=== PATIENT | male | born 1940 | race Caucasian/White ===

== ENCOUNTER 2017-01-01 06:15 | Observation (INO) | payer BC ==
--- NOTE | 2016-12-20 10:26 | PAT Medication Instructions ---
Service Date Dec 20, 2016. Current Home Medication List Aspirin (Aspirin Chewable), 81 MG PO QAM Carvedilol (Coreg *), 25 MG PO BID Finasteride (Proscar), 5 MG PO QPM Fish Oil ([place]-3), 1,000 MG PO QAM Furosemide (Lasix), 60 MG PO QAM Hydralazine HCl (Hydralazine HCl), 25 MG PO TID Isosorbide Mononitrate Ext Rel (Imdur Ext Rel), 1 TAB PO QAM Levothyroxine Sodium (Levothyroxine Sodium), 1 TAB PO QAM Nitroglycerin (Nitrostat), 1 TAB SL UD Potassium Chloride Microencaps (Potassium Chloride Er), 1 TAB PO DAILY Simvastatin (Zocor), 10 MG PO QPM Terazosin (Hytrin), 10 MG PO QPM Warfarin Sodium (Coumadin), 5 MG PO UD Medication Instructions For Your Scheduled Surgery - Use as directed: Nitroglycerin (Nitrostat), 1 TAB SL UD - Hold the following medications as of 12/21/16: Fish Oil ([place]-3), 1,000 MG PO QAM - Hold the following medications 2 days prior to surgery per surgeon's instructions: Warfarin Sodium (Coumadin), 5 MG PO UD - Hold the following medications the morning of surgery: Aspirin (Aspirin Chewable), 81 MG PO QAM (per surgeon's instructions) Carvedilol (Coreg *), 25 MG PO BID (per surgeon's instructions) Furosemide (Lasix), 60 MG PO QAM Hydralazine HCl (Hydralazine HCl), 25 MG PO TID (per surgeon's instructions) Isosorbide Mononitrate Ext Rel (Imdur Ext Rel), 1 TAB PO QAM (per surgeon's instructions) Potassium Chloride Microencaps (Potassium Chloride Er), 1 TAB PO DAILY - Take the following medications the morning of surgery with a sip of water: Levothyroxine Sodium (Levothyroxine Sodium), 1 TAB PO QAM - Take the following medications as scheduled the night before surgery: Carvedilol (Coreg *), 25 MG PO BID Hydralazine HCl (Hydralazine HCl), 25 MG PO TID Finasteride (Proscar), 5 MG PO QPM Simvastatin (Zocor), 10 MG PO QPM Terazosin (Hytrin), 10 MG PO QPM PER , NOTHING TO EAT OR DRINK AFTER 7PM THE EVENING PRIOR TO SURGERY )) If you have any questions please call us at [phone] or [phone] or [phone]
[~2017-01-01] VITALS: Ht 177.8 cm; Wt 94.3 kg
[2017-01-01] VITALS (9 sets, daily range): BP systolic 105–129; BP diastolic 68–86; PULSE 61–68; TEMP 36.3–36.8; O2SAT 84–96; Ht 177.8 cm; Wt 94.3 kg
[~2017-01-01 06:15] MED LIST: APR/25 PO; ASPCH81X PO; CEFAZOLIN 2000 MG/60 ML D5W IV SCH; CRG25 PO; FINA5TAB PO; FURO40TA3 PO; ISOS30TA3 PO; LACTATED RINGER'S 1000ML 1,000 ML IV SCH; LEVO50TA6 PO; NTRGSL/4 SL; OMEG10007 PO; POTA10TA32 PO; SIMV10TA2 PO; TERA5CAP PO; WARF5TAB90 PO
[2017-01-01 07:00] LABS: INR 1.4 (0.9-1.1); PARTIAL THROMBOPLASTIN RATIO 1.1
[2017-01-01] MEDS ORDERED: FRS/40 PO (07:07)
[2017-01-01] MEDS ORDERED: LIDOCAINE HCL 1% 20 ML VIAL ONE (07:25)
[2017-01-01] MEDS ORDERED: BUPIVACAINE 0.5 % 5 MG/1 ML MPF 30ML VIAL ONE (07:25)
[2017-01-01] MEDS ORDERED: BACITRACIN 50000 UNIT VIAL ONE ×2 (07:26→12:01)
[2017-01-01] MEDS ORDERED: FENTANYL CITRATE INJ 50 MCG/1 ML 2 ML VIAL IV PRN (07:30)
[2017-01-01] MEDS ORDERED: ONDANSETRON INJ 2 MG/ML 2 ML VIAL IV PRN (07:30)
[2017-01-01] MEDS ORDERED: PROPOFOL IV EMULSION 10 MG/ML 100 ML VIAL IV ONE (07:49)
[2017-01-01] MEDS ORDERED: MIDAZOLAM HCL 1 MG/ML 2ML VIAL ONE (07:52)
[2017-01-01] MEDS ORDERED: FENTANYL CITRATE INJ 50 MCG/1 ML 2 ML VIAL ONE (07:52)
--- NOTE | 2017-01-01 08:09 | History & Physical Bridge Note ---
H&P Re-Evaluation Bridge Note: I have examined the patient, reviewed the History & Physical and in the interval since the performance of the History & Physical I have noted the following changes of clinical significance: No changes noted
[2017-01-01] MEDS ORDERED: LIDOCAINE HCL 2% 2 ML VIAL (20MG/ML) ONE (08:36)
[2017-01-01] MEDS ORDERED: PROPOFOL IV EMULSION 10 MG/ML 20 ML VIAL IV ONE (08:36)
[2017-01-01] MEDS ORDERED: EpHEDrine SULFATE 50MG/5ML SYR ONE (09:01)
[2017-01-01] MEDS ORDERED: PHENYLEPHRINE 100MCG/ML 5ML SYR ONE (09:13)
[2017-01-01] MEDS ORDERED: EpHEDrine SULFATE INJ 50 MG/ML AMP ONE (10:00)
--- NOTE | 2017-01-01 12:43 | [facility] Post Operative Brief Note ---
Immediate Operative Summary Operative Date Jan 01, 2017. Pre-Operative Diagnosis ICM, CHB Post-Operative Diagnosis SAME Procedure(s) Performed UNSUCESSFUL UPGRADE TO BIV ICD Surgeon ANALISA ROBERTSON Chip Mixer Surgeon(s) USHA VICENTE Estimated Blood Loss 50CC Findings NONE Fluids (cc crystalloids) 450CC Specimens NONE Drains NONE Anesthesia 2MG VERSED, 100MCG FENTANYL, 470MG PROPOFOL Complication(s) None Disposition PCU
[2017-01-01] MEDS ORDERED: ACETAMINOPHEN/CODEINE 300/30MG TAB PO PRN (12:45)
[2017-01-01] MEDS ORDERED: NITROGLYCERIN 0.4 MG SL PER TAB CHARGE SL PRN (12:45)
[2017-01-01] MEDS ORDERED: ACETAMINOPHEN 325 MG TAB PO PRN (12:45)
--- NOTE | 2017-01-01 12:45 | Discharge Instructions ---
Discharge Instructions Date of Service Jan 01, 2017. Admission Reason for Admission: Ischemic Cardiomyopathy, Add Lead W/Anesthesia Discharge Discharge Diagnosis / Problem: ICM Discharge Goals Goal(s): Improve function Activity Recommendations Activity Limitations: as noted below Lifting Limitations: no more than 10 pounds May Resume Sexual Activity: after one week Shower/Bathe: tomorrow Driving or Machine Use: resume 1 day after discharge . Instructions / Follow-Up Instructions / Follow-Up ACTIVITY RECOMMENDATIONS: * Do not raise affected arm over head for 2 weeks. SPECIAL CARE INSTRUCTIONS: * If bleeding occurs, apply direct pressure to area for 5 minutes. * Call your doctor if you have severe pain, fever, drainage or bleeding at site. * Keep dressing on and dry for 48 hours then remove. * Keep any scheduled doctor's appointment. * Implant Card - hand held device with website information given. SKIN IRRITATION: * You may experience some redness and/or swelling in the area where radiation was administered. If any skin irritation occurs, please contact your family physician. FOLLOW UP VISIT: Keep any scheduled doctor appointments. Current Hospital Diet Patient's current hospital diet: AHA Diet (Heart Healthy), Low Sodium Diet (2gm Na) Discharge Diet Recommended Diet: AHA Diet (Heart Healthy), Low Sodium Diet (2gm Na) Procedures Procedures Performed: UNSUCESSFUL UPGRADE TO BIV ICD Pending Studies Studies pending at discharge: no Medical Emergencies . Who to Call and When: Medical Emergencies: If at any time you feel your situation is an emergency, please call 911 immediately. . Non-Emergent Contact Non-Emergency issues call your: Wan Support Specialist . . "Provider Documentation" section prepared by Loyda Haddad. . VTE Core Measure Inpt VTE Proph given/why not?: Warfarin (Coumadin)
--- NOTE | 2017-01-01 12:50 | Discharge Summary ---
Discharge Summary Date of Service Jan 01, 2017. Discharge Summary Admission Date: Discharge Date: Jan 02, 2017 Discharge Disposition: Home Principal Diagnosis: ICM Secondary Diagnoses/Problems: CHB S/P PPM 2004 WITH UPGRADE TO ICD IN 2009; RECENT GENT CHANGE IN [place] 2015 PAF S/P DCCV 05/2016 AMIODARONE STOPPED DUE TO CONCERN FOR PULMONARY TOXICITY; REMAINS ON COUMADIN CAD S/P PCI TO LAD CHRONIC SYSTOLIC HF, NYHA CLASS III HYPOTENSION HLD AAA 3.8CM IN 2010 H/O TIA BPH Procedures: UNSUCCESSFUL UPGRADE TO BIV ICD Medication Reconciliation Continued Medications: Aspirin (Aspirin Chewable) 81 Mg Chew 81 MG PO QAM Carvedilol (Coreg *) 25 Mg Tab 25 MG PO BID, 0 Refills Finasteride (Proscar) 5 Mg Tab 5 MG PO QPM, 0 Refills Fish Oil ([place]-3) 1 Ea Cap 1000 MG PO QAM, 0 Refills Furosemide (Lasix) 40 Mg Tab 40 MG PO DAILY, TAB Hydralazine HCl (Hydralazine HCl) 25 Mg Tab 25 MG PO TID Isosorbide Mononitrate Ext Rel (Imdur Ext Rel) 30 Mg Ertab 1 TAB PO QAM for 30 Days, #30 TAB 5 Refills Levothyroxine Sodium (Levothyroxine Sodium) 50 Mcg Tab 1 TAB PO QAM for 30 Days, #30 TAB 5 Refills Nitroglycerin (Nitrostat) 0.4 Mg Tab 1 TAB SL UD, #100 TAB 3 Refills Potassium Chloride Microencaps (Potassium Chloride Er) 10 Meq Tab 1 TAB PO DAILY for 30 Days, #30 TAB 5 Refills TAKES DIFFERENT TIMES Simvastatin (Zocor) 10 Mg Tab 10 MG PO QPM, 0 Refills Terazosin (Hytrin) 5 Mg Cap 10 MG PO QPM, 0 Refills Warfarin Sodium (Coumadin) 5 Mg Tab 5 MG PO UD, TAB Take 5mg PO twice weekly on Friday and Friday; all other days take 7.5 mg Admission Information Physical Exam (per Admitting): AAOX3, NAD NC/AT, EOMI SUPPLE, NO JVD NRL S1/S2, NO MURMUR CTA B/L NO W/R/R SOFT NT/ND NO EDEMA B/L NO FOCAL DEFICITS SKIN INTACT Hospital Course Pt admitted for elective upgrade to BiV ICD due to ICM, Chronic systolic HF- NYHA Class III, CHB. Unfortunately procedure was unsuccessful due to not being able to cannulate the c/s os. Pt was monitored overnight given the extent of the procedure, amount of sedation. He was discharged home following day in stable condition Total time spent on discharge = This includes examination of the patient, discharge planning, medication reconciliation, and communication with other providers. Discharge Instructions ACTIVITY RECOMMENDATIONS: * Do not raise affected arm over head for 2 weeks. SPECIAL CARE INSTRUCTIONS: * If bleeding occurs, apply direct pressure to area for 5 minutes. * Call your doctor if you have severe pain, fever, drainage or bleeding at site. * Keep dressing on and dry for 48 hours then remove. * Keep any scheduled doctor's appointment. * Implant Card - hand held device with website information given. SKIN IRRITATION: * You may experience some redness and/or swelling in the area where radiation was administered. If any skin irritation occurs, please contact your family physician. FOLLOW UP VISIT: Keep any scheduled doctor appointments.
--- NOTE | 2017-01-01 13:43 | Anesthesiology Progress Note ---
Anesthesia Post Op Note Date & Time Jan 01, 2017 at 13:43 Vital Signs Pain Intensity: 0 Vital Signs Past 12 Hours Date Time Temp Pulse Resp B/P (MAP) Pulse Ox O2 Delivery O2 Flow Rate FiO2 01/01/17 13:10 75 16 115/72 (86) 96 Nasal Cannula 4 01/01/17 13:00 75 16 117/79 (92) 96 Nasal Cannula 4 01/01/17 12:50 75 16 101/62 (75) 96 Nasal Cannula 4 01/01/17 07:13 36.6 64 20 119/74 (89) 84 Nasal Cannula 2 Notes Mental Status: alert / awake / arousable, participated in evaluation Pt Amnestic to Procedure: Yes Nausea / Vomiting: adequately controlled Pain: adequately controlled Airway Patency, RR, SpO2: stable & adequate BP & HR: stable & adequate Hydration State: stable & adequate Anesthetic Complications: no major complications apparent
[2017-01-01] MEDS ORDERED: IV FLUIDS COMPLETED PRN (13:45)
[2017-01-01] MEDS ORDERED: WARFARIN SOD 7.5 MG TAB PO SCH (16:00)
[2017-01-01] MEDS: CARVEDILOL 25 MG TAB PO SCH (20:41)
[2017-01-01] MEDS ORDERED: FINASTERIDE 5 MG TAB PO SCH (21:00)
[2017-01-01] MEDS ORDERED: SIMVASTATIN 10 MG TAB PO SCH (21:00)
[2017-01-02 00:04] VITALS: BP 122/73; PULSE 67; TEMP 36.9; O2SAT 95
[2017-01-02 03:45] VITALS: BP 104/65; PULSE 65; TEMP 36.1; O2SAT 96
[2017-01-02] MEDS ORDERED: LEVOTHYROXINE 50 MCG TAB PO SCH (06:00)
--- NOTE | 2017-01-02 06:51 | DIAGNOSTIC IMAGING REPORT ---
CHEST 2 VIEWS ROUTINE CLINICAL HISTORY: EXACT TIME ORDERED Evaluate for pneumothorax and lead placement COMPARISON STUDY: 07/15/2015 FINDINGS: Cardiac pacemaker in good position. No evidence pneumothorax. Potential developing infiltrative process left base. Persistent prominence of pulmonary vascular tear. IMPRESSION: Cardiac pacemaker leads in good position. No evidence of pneumothorax. Developing infiltrate left base. Electronically signed by: Kamari Tong M.D. 01/02/2017 6:50 AM Dictated Date/Time: 01/02/2017 6:49 AM
[2017-01-02 07:21] VITALS: BP 122/71; PULSE 65; TEMP 36.8; O2SAT 94
[2017-01-02 07:38] LABS: INR 1.3 (0.9-1.1); PROTHROMBIN TIME (PATIENT) 14.1 SECONDS (9.0-12.0)
[2017-01-02] MEDS: CARVEDILOL 25 MG TAB PO SCH (08:11)
--- NOTE | 2017-01-02 08:11 | Anesthesiology Progress Note ---
Anesthesia Post Op Note Date & Time Jan 02, 2017 at 08:09 Vital Signs Pain Intensity: 0 Vital Signs Past 12 Hours Date Time Temp Pulse Resp B/P (MAP) Pulse Ox O2 Delivery O2 Flow Rate FiO2 01/02/17 07:21 36.8 65 20 122/71 (88) 94 Nasal Cannula 2.0 01/02/17 04:00 Nasal Cannula 2.0 01/02/17 03:45 36.1 65 18 104/65 (78) 96 01/02/17 00:04 36.9 67 18 122/73 (89) 95 3.0 01/02/17 00:01 Nasal Cannula 2.0 Notes Mental Status: alert / awake / arousable, participated in evaluation Pt Amnestic to Procedure: Yes Nausea / Vomiting: adequately controlled Pain: adequately controlled Airway Patency, RR, SpO2: stable & adequate BP & HR: stable & adequate Hydration State: stable & adequate Anesthetic Complications: no major complications apparent
[2017-01-02] MEDS ORDERED: FUROSEMIDE 40 MG TAB PO SCH (09:00)
[2017-01-02] MEDS ORDERED: OMEGA-3 (PURIFIED FISH OIL) 1 GM CAP PO SCH (09:00)
[2017-01-02] MEDS ORDERED: ISOSORBIDE MONONITRATE 30 MG TABCR PO SCH (09:00)
[2017-01-02] MEDS ORDERED: ASPIRIN 81 MG CHEW PO SCH (09:00)
[2017-01-02] MEDS ORDERED: POTASSIUM CHLORIDE 10 MEQ TABCR PO SCH (09:00)
[2017-01-02 11:18] VITALS: BP 100/60; PULSE 65; TEMP 36.6; O2SAT 92
[2017-01-03] MEDS ORDERED: WARFARIN SOD 5 MG TAB PO SCH (16:00)
--- NOTE | 2017-01-15 12:48 | [facility] Operative Report ---
Operative Report Operative Date Jan 15, 2017. 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 POSTOPERATIVE DIAGNOSIS: Same, occluded left subclavian vein PROCEDURE: unsuccessful Upgrade to a biventricular rate ICD under fluoroscopic guidance along with peripheral venogram. SURGEON: Dr. Loyda Robertson. ASSISTANTS: Dr. Usha Friend ANESTHESIA: Monitored anesthetic care was given via anesthesiology. A total of 2 mg of Versed, 100 mcg of fentanyl, and 470 mg of propofol. START TIME: 8:15. END TIME: 12:50. COMPLICATIONS: None. CONDITION: Stable. BLOOD LOSS: 50 mL. ANTIBIOTICS: Two grams of Ancef. IV FLUIDS: 450 mL. CONTRAST: 35 mL. URINE OUTPUT: Not applicable. SPECIMENS: None. FINDINGS: None. DRAINS: None. INDICATIONS: This is an 76-year-old gentleman who has a past medical history for complete heart block for which he underwent a permanent pacemaker dual chamber in 2004. He is now a 100% RV paced and his ejection fraction has been slowly decreasing. He now has an ejection fraction of 15%, with a ischemic cardiomyopathy, he was upgraded to dual chamber ICD with capping of the RV paced sense lead back in 2009 and had a recent ICD generator change out in [facility] in 10/2015. 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 Due to his complete heart block with a 100% RV pacing and worsening cardiomyopathy, it was recommended consideration for an upgrade to a biventricular device. CONSENT: Consent was obtained prior to the patient going into the electrophysiology lab. The patient was informed of risks, benefits, and alternatives to the procedure. Risks include but not limited to sudden cardiac arrhythmias, cerebrovascular accident, myocardial infarction, injury to the blood vessels, chamber of the heart, lungs, bleeding and infection. The patient understood these risks and agreed to the procedure as planned. Informed consent was obtained. DESCRIPTION OF THE PROCEDURE: The patient was brought in to the electrophysiology lab in a fasting state. He was connected to continuous strategic marketing specialist. A timeout was performed to ensure patient's identity and procedure correctly. Before draping, we did a peripheral venogram with 10 mL of IV contrast diluted in 10 mL of saline followed by a 20 mL flush in the left peripheral vein to ensure that it was not occluded. It did not appear occluded but we did prepped and draped both the right and left infraclavicular space in normal surgical standard fashion. Monitored anesthetic care was given throughout the procedure for patient's comfort level via anesthesiology support. [place] precautions were maintained throughout the procedure. The patient did receive 2 grams of IV Ancef prior to incision. A 10 mL of 1% lidocaine were given over the prior surgical incision. Incision was made over the prior surgical incision. Then venous access was obtained with an axillary stick; however I was not able to pass the guide wire much beyond the mid subclavian vein. I put a 5 german sheath over the glide wire and removed the glidewire and dilator. 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 I then went to the right side; gave 10cc of 1% lidocaine in the right deltopectoral groove. Did blunt dissection down to the cephalic vein. The vein was isolated using 0-silk ties and nicked with an 11 blade. A glide wire was inserted without any resistance. A 9.5-American sheath was inserted over the glide wire without any resistance. Then the dilator was removed, then an MPX outer sheath right-sided from [employer] was used and advanced to the right atrium. The dilator and Glidewire removed. A CS diagnostic Decapolar catheter was then used to cannulate the coronary sinus. We had difficulty getting into the C/S Os; I had swapped out the MPX right sided outer sheath for an extended hook medtronic outer sheath however since it is curved more for left sided I still had difficulty. However there was about 2 times where I got in but then was not able to advance the extended hook outer sheath over the CS diagnostic catheter without everything pulling back out of the coronary sinus. I also tried with a right sided [place] CS catheter sheath without any success. Then Dr. Hobbs scrubed in to try and assist me further and try but he was also unsuccessful. After about 3 hours of trying; we stopped. The right side was flushed with copious amounts of bacitracin saline wash and inspected for hemostasis. The incision was then closed in a 3-layer fashion, 2-0 Vicryl suture followed by 3-0 Vicryl interrupted suture followed by a 4-0 Monocryl running stitch. Then I went back to the left side; the 5 American sheath was removed and manual compression was held to achieve hemostasis. Then the left side was flushed with copious amounts of bacitracin saline wash and inspected for hemostasis. The incision was then closed in a 3-layer fashion, 2-0 Vicryl suture followed by 3-0 Vicryl interrupted suture followed by a 4-0 Monocryl running stitch. EQUIPMENT: 1. ICD remains INCEPTA [employer] E163; Serial # [id number] 2. Right atrial lead 5076-45, serial #[id number], implant date 04/19/2005. 4. Right ventricular lead 6935-65 cm, serial #[id number], implant date 12/18/2009. IMPRESSION: unsuccessful upgrade to a biventricular ICD under fluoroscopic guidance along with peripheral venogram due to complete heart block with 100% RV pacing and worsening cardiomyopathy. PLAN: Monitor patient overnight, chest x-ray. He can continue his home medications. I will see the patient in the office in follow up to further discuss about possible options for upgrade to FERMENTER device. Fluids 450CC Specimens NONE Drains NONE Anesthesia 2MG VERSED, 100MCG FENTANYL, 470MG PROPOFOL Disposition PCU I attest to the content of the Intraoperative Record and any orders documented therein. Any exceptions are noted below.
== END 2017-01-02 12:45 | disposition home or self-care (01) ==
LOC: C.ACU 06:15 → ENRESERV 11:58 → C.2T 12:39
PROVIDERS: ADMIT Internal Medicine; ATTEND Internal Medicine
DX: Z53.8 Procedure and treatment not carried out for other reasons (principal); I25.5 Ischemic cardiomyopathy; I25.10 Atherosclerotic heart disease of native coronary artery without angina pectoris; I50.42 Chronic combined systolic (congestive) and diastolic (congestive) heart failure; I10 Essential (primary) hypertension; E78.5 Hyperlipidemia, unspecified; I71.4 Abdominal aortic aneurysm, without rupture; I49.9 Cardiac arrhythmia, unspecified; N40.1 Benign prostatic hyperplasia with lower urinary tract symptoms; N13.8 Other obstructive and reflux uropathy; N52.9 Male erectile dysfunction, unspecified; E66.3 Overweight; E03.9 Hypothyroidism, unspecified; Z95.9 Presence of cardiac and vascular implant and graft, unspecified; Z79.01 Long term (current) use of anticoagulants; Z95.810 Presence of automatic (implantable) cardiac defibrillator; Z79.899 Other long term (current) drug therapy

== ENCOUNTER 2017-01-29 10:24 | Observation (INO) | payer BC, OTHER ==
[~2017-01-29] VITALS: Ht 177.8 cm; Wt 92.5 kg
[~2017-01-29 10:24] MED LIST changes: +FRS/40 PO; -FURO40TA3 PO
[2017-01-29] MEDS ORDERED: PROPOFOL IV EMULSION 10 MG/ML 100 ML VIAL IV ONE (10:43)
[2017-01-29] MEDS ORDERED: FENTANYL CITRATE INJ 50 MCG/1 ML 2 ML VIAL IV PRN (11:00)
[2017-01-29] MEDS ORDERED: ATROPINE SULFATE 0.1 MG/ML 5ML SYR IV PRN (11:00)
[2017-01-29] MEDS ORDERED: ONDANSETRON INJ 2 MG/ML 2 ML VIAL IV PRN (11:00)
[2017-01-29] MEDS ORDERED: EpHEDrine SULFATE INJ 50 MG/ML AMP IV PRN (11:00)
--- NOTE | 2017-01-29 11:18 | DIAGNOSTIC IMAGING REPORT ---
CHEST 2 VIEWS ROUTINE HISTORY: PREOP TESTING IN SDS COMPARISON: Chest 01/02/2017. FINDINGS: Left-sided pacemaker. The heart remains mildly enlarged. No pneumothorax. Trace right and small left pleural effusions are not significantly changed. Old, healed right-sided rib fractures. Mild interstitial and vascular thickening. This is consistent with mild interstitial edema. This has slightly progressed. IMPRESSION: Cardiomegaly with mild perihilar interstitial and vascular thickening suggestive of mild pulmonary edema. Bilateral pleural effusions are not significantly changed. Electronically signed by: Surendra Rolon M.D. 01/29/2017 11:16 AM Dictated Date/Time: 01/29/2017 11:14 AM
[2017-01-29 11:23] VITALS: BP 111/71; PULSE 70; TEMP 36.6; O2SAT 91; BMI 28.0
[2017-01-29] MEDS ORDERED: FENTANYL CITRATE INJ 50 MCG/1 ML 2 ML VIAL ONE (11:36)
[2017-01-29] MEDS ORDERED: MIDAZOLAM HCL 1 MG/ML 2ML VIAL ONE (11:36)
[2017-01-29] MEDS ORDERED: LIDOCAINE HCL 1% 20 ML VIAL ONE (11:40)
[2017-01-29] MEDS ORDERED: BACITRACIN 50000 UNIT VIAL ONE (11:40)
[2017-01-29] MEDS ORDERED: PROPOFOL IV EMULSION 10 MG/ML 20 ML VIAL IV ONE (11:41)
[2017-01-29] MEDS ORDERED: LIDOCAINE HCL 2% 2 ML VIAL (20MG/ML) ONE (11:41)
[2017-01-29 11:46] LABS: INR 1.9 (0.9-1.1); PARTIAL THROMBOPLASTIN RATIO 1.3; PROTHROMBIN TIME (PATIENT) 20.6 SECONDS (9.0-12.0)
[2017-01-29] MEDS ORDERED: EpHEDrine SULFATE 50MG/5ML SYR ONE (12:51)
[2017-01-29] MEDS ORDERED: EpHEDrine SULFATE INJ 50 MG/ML AMP ONE (12:51)
[2017-01-29] MEDS ORDERED: PHENYLEPHRINE 100MCG/ML 5ML SYR ONE (12:51)
[2017-01-29] MEDS ORDERED: NITROGLYCERIN 0.4 MG SL PER TAB CHARGE SL PRN (16:30)
[2017-01-29] MEDS ORDERED: ACETAMINOPHEN 325 MG TAB PO PRN (16:30)
--- NOTE | 2017-01-29 16:30 | [facility] Post Operative Brief Note ---
Immediate Operative Summary Operative Date Jan 29, 2017. Pre-Operative Diagnosis ICM, CHRONIC SYSTOLIC HF NYHA CLASS III, LBBB Post-Operative Diagnosis SAME Procedure(s) Performed UPGRADE TO BIVENTRICULAR RATE RESPONSIVE ICD UNDER FLUROSCOPIC GUIDANCE WITH TUNNELING LV PACING LEAD ACROSS CHEST AND PERIPHERAL VENOGRAM Surgeon ANALISA ROBERTSON Powder Blender Surgeon(s) REYNALDO VICENTE Estimated Blood Loss 30CC Findings SEE OFFICIAL REPORT Fluids (cc crystalloids) 400CC Specimens NONE Drains NONE Anesthesia 4MG VERSED, 100MCG FENTANYL, 790MG PROPOFOL Complication(s) None Disposition PCU
--- NOTE | 2017-01-29 16:32 | Discharge Instructions ---
Discharge Instructions Date of Service Jan 29, 2017. Admission Reason for Admission: Ischemic Cardio Myopathy Icd Upgrade;Pre-Op Discharge Discharge Diagnosis / Problem: ICM Discharge Goals Goal(s): Improve function Activity Recommendations Activity Limitations: as noted below Lifting Limitations: no more than 10 pounds (DO NOT LIFT THE RIGHT ELBOW OVER THE RIGHT SHOULDER FOR 1 MONTH; DO NOT LIFT MORE THAN 10 POUNDS WITH EITHER ARM FOR 2 WEEKS) Exercise/Sports Limitations: as tolerated May Resume Sexual Activity: after one week Shower/Bathe: tomorrow Driving or Machine Use: resume 1 day after discharge . Instructions / Follow-Up Instructions / Follow-Up ACTIVITY RECOMMENDATIONS: * Do not raise RIGHT arm over head for 4 weeks. SPECIAL CARE INSTRUCTIONS: * If bleeding occurs, apply direct pressure to area for 5 minutes. * Call your doctor if you have severe pain, fever, drainage or bleeding at site. * Keep dry for 24 hours. * Keep any scheduled doctor's appointment. * Implant Card - hand held device with website information given. SKIN IRRITATION: * You may experience some redness and/or swelling in the area where radiation was administered. If any skin irritation occurs, please contact your family physician. FOLLOW UP VISIT: Keep any scheduled doctor appointments. Current Hospital Diet Patient's current hospital diet: AHA Diet (Heart Healthy), Low Sodium Diet (2gm Na) Discharge Diet Recommended Diet: AHA Diet (Heart Healthy), Low Sodium Diet (2gm Na) Procedures Procedures Performed: UPGRADE TO BIVENTRICULAR RATE RESPONSIVE ICD UNDER FLUROSCOPIC GUIDANCE WITH TUNNELING LV PACING LEAD ACROSS CHEST AND PERIPHERAL VENOGRAM Pending Studies Studies pending at discharge: no Medical Emergencies . Who to Call and When: Medical Emergencies: If at any time you feel your situation is an emergency, please call 911 immediately. . Non-Emergent Contact Non-Emergency issues call your: Soldering Machine Setter . . "Provider Documentation" section prepared by Loyda Haddad. . VTE Core Measure Inpt VTE Proph given/why not?: Warfarin (Coumadin)
--- NOTE | 2017-01-29 16:37 | Discharge Summary ---
Discharge Summary Date of Service Jan 29, 2017. 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 H/O TIA BPH AAA 3.8CM BACK IN 2010 Procedures: UPGRADE TO BIV ICD WITH TUNNELING OF LV PACING LEAD ACROSS CHEST WITH PERIPHERAL VENOGRAM Medication Reconciliation Continued Medications: Aspirin (Aspirin Chewable) 81 Mg Chew 81 MG PO QAM Carvedilol (Coreg *) 25 Mg Tab 25 MG PO BID, 0 Refills Finasteride (Proscar) 5 Mg Tab 5 MG PO QPM, 0 Refills Fish Oil ([place]-3) 1 Ea Cap 1000 MG PO QAM, 0 Refills Furosemide (Lasix) 40 Mg Tab 40 MG PO DAILY, TAB Hydralazine HCl (Hydralazine HCl) 25 Mg Tab 25 MG PO TID Isosorbide Mononitrate Ext Rel (Imdur Ext Rel) 30 Mg Ertab 1 TAB PO QAM for 30 Days, #30 TAB 5 Refills Levothyroxine Sodium (Levothyroxine Sodium) 50 Mcg Tab 1 TAB PO QAM for 30 Days, #30 TAB 5 Refills Nitroglycerin (Nitrostat) 0.4 Mg Tab 1 TAB SL UD, #100 TAB 3 Refills Potassium Chloride Microencaps (Potassium Chloride Er) 10 Meq Tab 1 TAB PO DAILY for 30 Days, #30 TAB 5 Refills TAKES DIFFERENT TIMES Simvastatin (Zocor) 10 Mg Tab 10 MG PO QPM, 0 Refills Terazosin (Hytrin) 5 Mg Cap 10 MG PO QPM, 0 Refills Warfarin Sodium (Coumadin) 5 Mg Tab 5 MG PO UD, TAB Take 5mg PO twice weekly on Friday and Friday; all other days take 7.5 mg Admission Information Physical Exam (per Admitting): aaox3, NAD NC/AT, EOMI Supple, +JVD Nrl S1/S2, + systolic murmur b/l rales at bases soft nt/nd trace edema b/l LE no focal deficits skin intact Hospital Course patient admitted for upgrade to biventricular icd; underwent procedure without any complications. monitored overnight and discharged home Total time spent on discharge = 30 minutes This includes examination of the patient, discharge planning, medication reconciliation, and communication with other providers. Discharge Instructions ACTIVITY RECOMMENDATIONS: * Do not raise right arm over head for 4 weeks. SPECIAL CARE INSTRUCTIONS: * If bleeding occurs, apply direct pressure to area for 5 minutes. * Call your doctor if you have severe pain, fever, drainage or bleeding at site. * Keep dry for 24 hours. * Keep any scheduled doctor's appointment. * Implant Card - hand held device with website information given. SKIN IRRITATION: * You may experience some redness and/or swelling in the area where radiation was administered. If any skin irritation occurs, please contact your family physician. FOLLOW UP VISIT: Keep any scheduled doctor appointments.
--- NOTE | 2017-01-29 17:12 | Anesthesiology Progress Note ---
Anesthesia Post Op Note Date & Time Jan 29, 2017 at 17:10 Vital Signs Pain Intensity: 0 Vital Signs Past 12 Hours Date Time Temp Pulse Resp B/P (MAP) Pulse Ox O2 Delivery O2 Flow Rate FiO2 01/29/17 16:35 66 16 110/65 (80) 93 Mask 10 01/29/17 16:30 72 16 108/62 (77) 93 Mask 10 01/29/17 16:25 72 16 100/62 (75) 93 Mask 10 01/29/17 16:20 71 16 108/64 (79) 93 Mask 10 01/29/17 16:15 77 16 100/61 (74) 93 Mask 10 01/29/17 11:23 36.6 70 20 111/71 (84) 91 Nasal Cannula 2 Notes Mental Status: alert / awake / arousable, participated in evaluation Pt Amnestic to Procedure: Yes Nausea / Vomiting: adequately controlled Pain: adequately controlled Airway Patency, RR, SpO2: stable & adequate BP & HR: stable & adequate Hydration State: stable & adequate Anesthetic Complications: no major complications apparent Prior to discharge the patient was awake and oriented to person, date of , location and was able to describe the procedure he had done and moving all extremities. He was saturating 98% on FM.
[2017-01-29 17:35] VITALS: BP 108/66; PULSE 60; TEMP 36.1; O2SAT 94; Ht 177.8 cm; Wt 92.5 kg
[2017-01-29] MEDS ORDERED: IV FLUIDS COMPLETED PRN (17:45)
[2017-01-29] MEDS: FUROSEMIDE 40 MG TAB PO SCH (18:26)
[2017-01-29] MEDS: OMEGA-3 (PURIFIED FISH OIL) 1 GM CAP PO SCH (18:26)
[2017-01-29] MEDS: POTASSIUM CHLORIDE 10 MEQ TABCR PO SCH (18:26)
[2017-01-29] MEDS: ASPIRIN 81 MG ECTAB PO SCH (18:26)
[2017-01-29] MEDS ORDERED: WARFARIN SOD 7.5 MG TAB PO SCH (18:30)
[2017-01-29 19:13] VITALS: BP 135/79; PULSE 64; TEMP 36.3; O2SAT 97
[2017-01-29 20:00] VITALS: O2SAT 97
[2017-01-29 20:51] VITALS: BP 122/78; PULSE 64; O2SAT 97
[2017-01-29] MEDS: CARVEDILOL 25 MG TAB PO SCH (20:54)
[2017-01-29] MEDS ORDERED: SIMVASTATIN 10 MG TAB PO SCH (21:00)
[2017-01-29] MEDS ORDERED: FINASTERIDE 5 MG TAB PO SCH (21:00)
--- NOTE | 2017-01-29 23:01 | OPERATIVE REPORT ---
DATE OF OPERATION: 01/29/2017 PREOPERATIVE DIAGNOSES: Ischemic cardiomyopathy, ejection fraction 15%, left bundle-branch block, chronic systolic heart failure, Foster Heart Association class 3, occluded left subclavian vein. POSTOPERATIVE DIAGNOSES: Same. PROCEDURE: Upgrade to a biventricular rate responsive implantable cardiac defibrillator under fluoroscopic guidance, with tunneling of the left ventricular pacing lead across the chest, and peripheral venogram. SURGEON: Dr. Loyda Haddad. WIRE WINDING MACHINE OPERATOR: Dr. Jaylon Friend. ANESTHESIA: Monitored anesthetic care administered via anesthesiology under their supervision, total of 4 mg of Versed, 100 mcg of fentanyl and 790 mg of propofol. IV FLUIDS: 400 mL IV CONTRAST: 65 mL.. ANTIBIOTICS: Two grams of Ancef. ESTIMATED BLOOD LOSS: 30 mL COMPLICATIONS: None. CONDITION: Stable. URINE OUTPUT: Not applicable. SPECIMENS: None. FINDINGS: See below. DRAINS: None. INDICATIONS: This is a 76-year-old gentleman, who has a past medical history for ischemic cardiomyopathy, ejection fraction of 15%, chronic systolic congestive heart failure, Foster Heart Association class 3, left bundle-branch block, sinus node dysfunction in which he underwent a permanent pacemaker back in 2004. This was upgraded to an implantable cardiac defibrillator in 2009 and he had a recent generator change out in [place] in October 2015, paroxysmal atrial fibrillation in which he was cardioverted in May 2016 and was started on amiodarone; however, this was stopped due to pulmonary toxicity; he remains on Coumadin, chronic coronary artery disease, status post PCI to the LAD, hypertension, hyperlipidemia, chronic kidney disease stage III, abdominal aortic aneurysm 3.8 cm back in 2010, history of TIA and BPH. The patient had recently undergone attempted upgrade a month ago, but we were unsuccessful in cannulating the coronary os from the right side, as he was occluded from the left. I saw the patient in followup and we discussed about possible retrying again with different catheters that were now available. The patient was in agreement to try one more time endovascular before having to go the epicardial route. CONSENT: Consent was obtained prior to the patient going into the electrophysiology lab. The patient was explained the risks, benefits, alternatives to the procedure. Risks include, but not limited to, sudden cardiac , cardiac arrhythmias, cerebrovascular accident, myocardial infarction, injury to the blood vessels, chamber of the heart, lungs, bleeding and infection. The patient understood these risks and agreed to the procedure as planned. Informed consent was obtained. DESCRIPTION OF THE PROCEDURE: The patient was brought into the electrophysiology lab in a fasting state. He was connected to continuous cardiac monitoring. A timeout was performed to ensure patient's identity and procedure correctly. The patient received prophylactic antibiotics prior to incision. He was prepped and draped across the entire chest in the normal surgical standard fashion. Wilbraham precautions were maintained throughout the procedure. Monitored anesthetic care was given throughout the procedure for patient's comfort level via anesthesiology. 10 mL of 1% lidocaine, bupivacaine mixture were given in the right deltopectoral groove. Incision was made in the right deltopectoral groove. Then, a peripheral venogram, using 10 mL of IV contrast followed by a 20-mL flush was used to identify the axillary vein. Axillary venous access was obtained through a needlestick without any problem. The guidewire was inserted without any problems. The 9.5-Comoran sheath was then inserted over the guidewire without any resistance. The sheath and dilator were removed. Then, coronary sinus outer sheath, which is a 3D catheter, right-sided, was inserted over a guidewire into the right atrium. Then initially, we tried with a coronary sinus Decapolar EP diagnostic catheter to cannulate the coronary sinus. I did, on one occasion, cannulate it; however, it did have a sharp takeoff and was tortuous and I was not able to pass the outer 3D guide over the sharp angle. It was at this point that Dr. Friend joined me and scrubbed in. He was trying with the 3D catheter and I had given some IV contrast to see where the coronary sinus os was. We ultimately ended up able to cannulate the coronary sinus os with the outer catheter being the 3D right-sided Medtronic catheter followed by an inner 90 SP catheter followed then by an inner Merit Impress CS Vert with a Choice PT wire going through that and we were able to do a venogram through that inner Merit Impress CS Vert catheter right into a branch that was a beautiful branch in the posterolateral. We did slide the inner 90 over this Merit Impress CS Vert and got the outer 3D catheter to come out more into the CS over the sharp S acute takeoff it had for extra support. We then were able to remove the Choice PT and the Merit Impress CS Vert and place the Whisper wire out through into the vessel and track the lead over it. There was a point where everything did start coming back. So, we actually pulled back and the 3D guide as well as the 90 SP guide; so now, they were in the right atrium and we were slowly able, under fluoroscopy, to pass the lead out at least into the vessel into the branch under fluoroscopic guidance. There was adequate pacing threshold and impedance and no diaphragmatic stimulation with hyper pacing. We then, under fluoroscopic guidance, slit the inner 90 SP catheter followed then by the 3D catheter and then peeled away the outer 9.5-Comoran sheath. The lead was then fixated to the pectoralis muscle using [address] Friend scrubbed out. I then went to the left side and, over the prior surgical incision, gave 10 mL of 1% lidocaine-bupivacaine mixture and then made an incision over the prior surgical incision and a blunt dissection down to the prior generator. The capsule was disrupted using iris scissors and the generator was freed from the capsule and removed from the pocket. I used blunt dissection to create a tunnel across the sternum to connect the right and left side and then using a solo tract 10-Comoran Medtronic sheath to tunnel the left ventricular lead across the chest. The old leads, the right atrial defibrillator, right ventricular defibrillator leads were tested intraoperatively and then attached to the new defibrillator in addition to the LV lead, making sure that all the pins were in appropriate position, passed the set screws and the set screws were all tightened. The old capsule pocket on the left was disrupted inferiorly and caudally to allow for new blood flow. The pocket was then flushed with copious amounts of bacitracin saline wash and inspected for hemostasis. The defibrillator was then placed in the pocket, making sure that the leads were lying flat beneath the device. The Milnea stat was placed in the pocket, as the patient is on Coumadin, to prevent any further significant oozing. The incision was then closed in a 3-layer fashion using a 2-0 Vicryl interrupted suture followed by 3-0 Vicryl interrupted suture followed by a 4-0 Monocryl running stitch and Dermabond was applied. The pocket on the right side was then flushed with copious amounts of bacitracin saline wash. Whatever Milena stat I had left over was placed in that pocket and then the incision was closed in a 3-layer fashion using a 2-0 Vicryl interrupted suture followed by a 3-0 Vicryl interrupted suture followed by a 4-0 Monocryl running stitch and Dermabond was applied. A pressure dressing was placed over the left pocket. EQUIPMENT: 1. The explanted generator is a [place] Incepta, model E163, serial #[id number]. It was implanted 10/30/2015. 2. The new defibrillator generator is a Medtronic [employer], MRI Quad MAINTENANCE AND ENGINEERING MANAGER-D SureScan, model number DTMA 1Q1, serial #[id number]. 3. The right atrial lead, 5076-45 cm, serial number [id number], implanted 04/19/2005. 4. The right ventricular lead 6935-65, serial #[id number], implanted 12/18/2009. Of note, there is a capped right ventricular pacing lead, I do not know anything about. 5. The left ventricular pacing lead is Medtronic 4598-88 cm, serial #[id number]. INTRAOPERATIVE TESTIN. Right atrial lead: P-wave 2.1 millivolts, impedance 441 ohms, threshold 0.7 volts at 1.5 milliamps. 2. Right ventricular lead: R-waves 4.1 millivolts, impedance 358 ohms, threshold 0.6 volts at 1.5 milliamps. 3. Left ventricular lead: Programmed bipolar, LV1 to LV2, impedance 644 ohms, threshold 0.9 volts at 1.3 milliamps. FINAL MEASUREMENTS THROUGH THE DEVICE: 1. Right atrial lead: P-waves 1.8 millivolts, impedance 361 ohms, threshold 0.75 volts at 0.4 milliseconds. 2. Right ventricular lead: R-wave 5.4 millivolts, impedance 304 ohms, threshold 0.75 volts at 0.4 milliseconds. 3. Left ventricular lead: Programmed bipolar, LV1 to LV2, impedance 665 ohms, threshold 0.75 volts at 0.4 milliseconds. 4. Right ventricular coil: 64 ohms. FINAL PARAMETERS: 1. DDDR 60/130, right atrial and right ventricular amplitude 1.5 volts, pulse width 0.4 milliseconds, sensitivity 0.3 millivolts. 2. Left ventricular amplitude 4 volts, pulse width 0.4 milliseconds. 3. Atrial therapies were turned on. 4. VF zone 188 beats per minute, 30/40 detection intervals of VT zone 167 beats per minute at 16 detection intervals and a monitor zone at 140 for 32 detection intervals. IMPRESSION: Successful upgrade to a biventricular rate responsive implantable cardiac defibrillator under fluoroscopic guidance with tunneling of the left ventricular pacing lead across the sternum and a peripheral venogram. They are all secondary to ischemic cardiomyopathy, left bundle-branch block, chronic systolic heart failure, class 3 and an occluded left subclavian vein. PLAN: Monitor patient overnight, 12-lead ECG, chest x-ray. He is not allowed to lift the right elbow over the right shoulder for 1 month. He cannot lift more than 10 pounds with either arm for 2 weeks. He can shower tomorrow, let water run over the incision. He can continue his home medications. He should follow up in our [facility] device clinic in 7-10 days for a device and wound check. I attest to the content of the Intraoperative Record and any orders documented therein. Any exception s are noted below.
[2017-01-30] VITALS: BP 115/67; PULSE 64; TEMP 36.7; O2SAT 95
[2017-01-30 02:50] VITALS: BP 110/66; PULSE 65; TEMP 37; O2SAT 97
[2017-01-30 04:00] VITALS: O2SAT 94
[2017-01-30] MEDS ORDERED: LEVOTHYROXINE 50 MCG TAB PO SCH (06:00)
[2017-01-30 07:54] VITALS: BP_SYST 131; BP_DIAS 64; BP_DIAS 65; PULSE 66; TEMP 37; O2SAT 96
--- NOTE | 2017-01-30 07:57 | DIAGNOSTIC IMAGING REPORT ---
TWO VIEW CHEST CLINICAL HISTORY: Lead placement. FINDINGS: PA and lateral chest radiographs are compared to study dated 01/29/2017. A cardiac AICD with multiple leads partially obscures the left lower chest. A lead projecting over the coronary sinus is new from yesterday. The heart is enlarged and there is atherosclerotic calcification of the thoracic aorta. Mild congestive change is noted. Small pleural effusions are noted on the lateral view. There is left basilar consolidation. There is no pneumothorax. The skeletal structures are osteopenic. There are healed right-sided rib fractures. IMPRESSION: 1. Cardiomegaly and AICD. No pneumothorax is identified post procedure. 2. A lead projecting over the coronary sinus is new from previous. 3. Findings suggest mild congestive change/interstitial edema. 4. There are small pleural effusions. 5. Left basilar consolidation is noted and may represent atelectasis similar to the enlarged heart. Clinical correlation will be required Electronically signed by: Zhang Simpson M.D. 01/30/2017 7:56 AM Dictated Date/Time: 01/30/2017 7:53 AM
[2017-01-30] MEDS: CARVEDILOL 25 MG TAB PO SCH (08:02)
[2017-01-30] MEDS: FUROSEMIDE 40 MG TAB PO SCH (08:03)
[2017-01-30] MEDS: ASPIRIN 81 MG ECTAB PO SCH (08:04)
[2017-01-30] MEDS: OMEGA-3 (PURIFIED FISH OIL) 1 GM CAP PO SCH (08:04)
[2017-01-30] MEDS: POTASSIUM CHLORIDE 10 MEQ TABCR PO SCH (08:04)
--- NOTE | 2017-01-30 08:20 | Anesthesiology Progress Note ---
Anesthesia Post Op Note Date & Time Jan 30, 2017 at 08:19 Vital Signs Pain Intensity: 0.0 Vital Signs Past 12 Hours Date Time Temp Pulse Resp B/P (MAP) Pulse Ox O2 Delivery O2 Flow Rate FiO2 01/30/17 07:54 37.0 66 18 131/65 (87) 96 01/30/17 04:00 94 Nasal Cannula 3.0 01/30/17 02:50 37.0 65 18 110/66 (81) 97 Nasal Cannula 4.0 01/30/17 00:00 95 Nasal Cannula 4.0 01/30/17 00:00 36.7 64 20 115/67 (83) 95 Nasal Cannula 4.0 01/29/17 20:51 64 122/78 (93) 97 3.0 Notes Mental Status: alert / awake / arousable Pt Amnestic to Procedure: Yes Nausea / Vomiting: adequately controlled Pain: adequately controlled Airway Patency, RR, SpO2: stable & adequate BP & HR: stable & adequate Hydration State: stable & adequate
--- NOTE | 2017-01-30 08:24 | Cardiology Follow-Up ---
Subjective Subjective Date of Service: Jan 30, 2017. Pt evaluation today including: conversation w/ patient, physical exam, review of studies Pain: minimal discomfort at incision sites Review of Systems Constitutional: + fatigue Respiratory: + shortness of breath, + dyspnea on exertion Cardiac: No chest pain, No edema, No palpitations Abdomen: No vomiting, No diarrhea Objective Vital Signs Last Vital Signs Documentation Date Time Temp Pulse Resp B/P (MAP) Pulse Ox O2 Delivery O2 Flow Rate FiO2 01/30/17 07:54 37.0 66 18 131/65 (87) 96 01/30/17 04:00 Nasal Cannula 3.0 Physical Exam: General Appearance: WD/WN, no apparent distress Eyes: bilateral eyes PERRL, bilateral eyes EOMI Neck: supple, + JVD Respiratory/Chest: + rhonchi Cardiovascular: regular rate, rhythm, no edema, + systolic murmur Abdomen: soft Extremities: no pedal edema Neurologic/Psychiatric: alert, oriented x 3 Skin: warm/dry (both pectoral incisions intact; mild ecchymosis; no hematoma) Assessment and Plan Impression: ICM EF 15% LBBB CHRONIC SYSTOLIC HF, NYHA CLASS III SND H/O PPM IN 2004 THEN UPGRADE TO ICD IN 2009 WITH GENT CHANGE IN [place] IN [place] S/P DCCV IN 05/2016 ON COUMADIN; PREVIOUSLY ON AMIO BUT STOPPED DUE TO PULMONARY TOXICITY CAD S/P PCI TO LAD HYPOTENSION HLD 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 H/O TIA BPH AAA 3.8CM BACK IN 2010 Plan: -Ok for discharge home today -Continue current home medications -Pt not allowed to lift the right elbow over the right shoulder for 1 month and no heavy lifting more than 10 pounds with either arm for 2 weeks -Wound check next week Discharge planning: home Medications: Medications Administered Medications (Trade) Dose Ordered Sig/Jossie Route Start Time Stop Time Status Last Admin Dose Admin Lactated Ringer's 1,000 ml @ 15 mls/hr Q24H IV 01/29/17 06:00 01/30/17 05:59 DC 01/29/17 11:45 15 MLS/HR Cefazolin Sodium 60 ml @ 100 mls/hr PREOP IV 01/29/17 06:00 01/29/17 15:59 DC 01/29/17 06:00 100 MLS/HR Aspirin (Ecotrin Tab) 81 mg QAM PO 01/29/17 18:00 02/28/17 17:59 01/30/17 08:04 81 MG Carvedilol (Coreg Tab) 25 mg BID PO 01/29/17 21:00 02/28/17 20:59 01/30/17 08:02 25 MG Finasteride (Proscar Tab) 5 mg QPM PO 01/29/17 21:00 02/28/17 20:59 01/29/17 20:56 5 MG Fish Oil (Spencer-3 (Purified Fish Oil) Cap) 1 gm QAM PO 01/29/17 18:00 02/28/17 17:59 01/30/17 08:04 1 GM Furosemide (Lasix Tab) 40 mg DAILY PO 01/29/17 18:00 02/28/17 17:59 01/30/17 08:03 40 MG Hydralazine HCl (Apresoline Tab) 25 mg TID PO 01/29/17 21:00 02/28/17 20:59 01/30/17 08:02 25 MG Isosorbide Mononitrate (Imdur Ext Rel Tab) 30 mg QAM PO 01/30/17 09:00 03/01/17 08:59 01/30/17 08:03 30 MG Levothyroxine Sodium (Synthroid Tab) 50 mcg DAILYBB PO 01/30/17 06:00 03/01/17 06:59 01/30/17 05:41 50 MCG Potassium Chloride (Klor-Con M10) 10 meq DAILY PO 01/29/17 18:00 02/28/17 17:59 01/30/17 08:04 10 MEQ Simvastatin (Zocor Tab) 10 mg QPM PO 01/29/17 21:00 02/28/17 20:59 01/29/17 20:55 10 MG Terazosin HCl (Hytrin Cap) 10 mg QPM PO 01/29/17 21:00 02/28/17 20:59 01/29/17 20:57 10 MG Warfarin Sodium (Coumadin Tab) 7.5 mg SuTuWeThSa@1600 PO 01/29/17 18:30 02/28/17 18:29 01/29/17 18:27 7.5 MG Lab Results: Telemetry: AP-BiV P ECG: CXR: No PTX leads in position ICD Interrogation: RA: 2.1mV; 399ohms; 0.75V@0.4ms RV: 6.1mV; 285ohms; 0.75V@0.4ms LV: 532ohms; 1V@0.4ms RV Coil 41 ohms Last 24 Hours Test 01/29/17 11:24 Prothrombin Time 20.6 SECONDS Prothromb Time International Ratio 1.9 Activated Partial Thromboplast Time 33.4 SECONDS Partial Thromboplastin Ratio 1.3
[2017-01-30] MEDS ORDERED: ISOSORBIDE MONONITRATE 30 MG TABCR PO SCH (09:00)
[2017-01-30 09:30] VITALS: BP 131/65; PULSE 66; TEMP 37; O2SAT 96
[2017-01-31] MEDS ORDERED: WARFARIN SOD 5 MG TAB PO SCH (16:00)
== END 2017-01-30 10:04 | disposition home or self-care (01) ==
LOC: C.ACU 10:24 → C.2T 16:26 → ENRESERV 16:51
PROVIDERS: ADMIT Internal Medicine; ATTEND Internal Medicine
DX: I25.5 Ischemic cardiomyopathy (principal); I45.2 Bifascicular block; I50.22 Chronic systolic (congestive) heart failure

== ENCOUNTER 2017-02-26 07:06 | Inpatient (IN) | payer BC, OTHER ==
--- NOTE | 2017-02-19 11:20 | PAT Medication Instructions ---
Service Date Feb 19, 2017. Current Home Medication List Aspirin (Aspirin Chewable), 81 MG PO QAM Carvedilol (Coreg *), 25 MG PO BID Finasteride (Proscar), 5 MG PO QPM Fish Oil ([place]-3), 1,000 MG PO QAM Furosemide (Lasix), 40 MG PO QAM Hydralazine HCl (Hydralazine HCl), 25 MG PO TID Isosorbide Mononitrate Ext Rel (Imdur Ext Rel), 1 TAB PO QAM Levothyroxine Sodium (Levothyroxine Sodium), 1 TAB PO QAM Nitroglycerin (Nitrostat), 1 TAB SL UD Potassium Chloride Microencaps (Potassium Chloride Er), 1 TAB PO 2XWK Simvastatin (Zocor), 10 MG PO QPM Terazosin (Hytrin), 10 MG PO QPM Warfarin Sodium (Coumadin), 5 MG PO UD Medication Instructions For Your Scheduled Surgery - Check with surgeon/self contained behavior unit teacher for instructions: Aspirin (Aspirin Chewable), 81 MG PO QAM Warfarin Sodium (Coumadin), 5 MG PO UD - Hold the following medications starting 02/20/17: Fish Oil ([place]-3), 1,000 MG PO QAM - Hold the following medications the morning of surgery: Furosemide (Lasix), 40 MG PO QAM Potassium Chloride Microencaps (Potassium Chloride Er), 1 TAB PO 2XWK - Take the following medications the morning of surgery with a sip of water: Carvedilol (Coreg *), 25 MG PO BID Hydralazine HCl (Hydralazine HCl), 25 MG PO TID Nitroglycerin (Nitrostat), 1 TAB SL UD (if needed) Isosorbide Mononitrate Ext Rel (Imdur Ext Rel), 1 TAB PO QAM Levothyroxine Sodium (Levothyroxine Sodium), 1 TAB PO QAM - Take the following medications as scheduled the night before surgery: Carvedilol (Coreg *), 25 MG PO BID Finasteride (Proscar), 5 MG PO QPM Hydralazine HCl (Hydralazine HCl), 25 MG PO TID Terazosin (Hytrin), 10 MG PO QPM Simvastatin (Zocor), 10 MG PO QPM Nitroglycerin (Nitrostat), 1 TAB SL UD (if needed) If you have any questions please call us at [phone] or [phone] or [phone]
--- NOTE | 2017-02-19 11:47 | DIAGNOSTIC IMAGING REPORT ---
CHEST PREADMISSION(PA/LAT) CLINICAL HISTORY: 76 years-old Male presenting with PREOP. TECHNIQUE: PA and lateral views of the chest were obtained. COMPARISON: 01/30/2017. FINDINGS: Left-sided implanted cardiac defibrillator with leads to the right atrium and right ventricular apex. Additional abandoned right ventricular pacer lead. A coronary sinus lead takes a convoluted course and is new since 01/29/2017. Cardiac silhouette remains enlarged. Atherosclerosis of the aortic arch. Interval decrease in hazy mid and bibasilar opacities. Decreased left pleural effusion. Old right rib fractures again noted. Upper abdomen normal. IMPRESSION: 1. Decreased pulmonary edema and left pleural effusion. 2. Cardiomegaly. Electronically signed by: Rafi Chapman M.D. 02/19/2017 11:45 AM Dictated Date/Time: 02/19/2017 11:42 AM
[2017-02-19 11:48] LABS: BASO ABS # 0.06 K/uL (0-0.2); COMPLETE YES; EOS % 11.5 %; HEMATOCRIT 37.7 % (42-52); IG% 0.2 %; LYMPH % 12.4 %; LYMPH ABS # 0.76 K/uL (1.2-3.4); MEAN CORPUSCULAR HEMOGLOBIN 33.2 pg (25-34); MEAN CORPUSCULAR HGB CONC 33.2 g/dl (32-36); MONO % 9.4 %; NEUT % 65.5 %; PLATELET COUNT 123 K/uL (130-400); RED BLOOD COUNT 3.77 M/uL (4.7-6.1); WHITE BLOOD COUNT 6.15 K/uL (4.8-10.8)
[2017-02-26] VITALS (9 sets, daily range): BP systolic 108–130; BP diastolic 59–78; PULSE 58–68; TEMP 36.3–37.3; O2SAT 82–96; Ht 177.8 cm; Wt 88.5 kg
[~2017-02-26] VITALS: Ht 177.8 cm; Wt 88.5 kg
[~2017-02-26 07:06] MED LIST changes: -CEFAZOLIN 2000 MG/60 ML D5W IV SCH; +CIPROFLOXACIN 500 MG TAB PO SCH
[2017-02-26 08:56] LABS: INR 2.1 (0.9-1.1); PARTIAL THROMBOPLASTIN RATIO 1.4; PROTHROMBIN TIME (PATIENT) 22.7 SECONDS (9.0-12.0)
[2017-02-26] MEDS ORDERED: ONDANSETRON INJ 2 MG/ML 2 ML VIAL ONE ×2 (08:57→11:54)
[2017-02-26] MEDS ORDERED: LIDOCAINE HCL 2% 2 ML VIAL (20MG/ML) ONE (08:57)
[2017-02-26] MEDS ORDERED: DEXAMETHASONE SOD INJ 4 MG/ML VIAL ONE (08:57)
[2017-02-26] MEDS ORDERED: FENTANYL CITRATE INJ 50 MCG/1 ML 2 ML VIAL ONE (08:57)
[2017-02-26] MEDS ORDERED: PROPOFOL IV EMULSION 10 MG/ML 20 ML VIAL IV ONE (08:57)
[2017-02-26] MEDS ORDERED: MIDAZOLAM HCL 1 MG/ML 2ML VIAL ONE (08:57)
[2017-02-26] MEDS ORDERED: ATROPINE SULFATE 0.1 MG/ML 5ML SYR IV PRN (10:30)
[2017-02-26] MEDS ORDERED: FENTANYL CITRATE INJ 50 MCG/1 ML 2 ML VIAL IV PRN (10:30)
[2017-02-26] MEDS ORDERED: ONDANSETRON INJ 2 MG/ML 2 ML VIAL IV PRN ×2 (10:30→14:30)
[2017-02-26] MEDS ORDERED: EpHEDrine SULFATE INJ 50 MG/ML AMP IV PRN (10:30)
[2017-02-26] MEDS ORDERED: PROMETHAZINE HCL INJ 6.25 MG in SODIUM CHLORIDE 0.9% 50ML 50 ML IV PRN (10:30)
[2017-02-26] MEDS ORDERED: BELLADONNA/OPIUM SUPP 60 MG SUPP PR ONE ×2 (14:03→14:05)
--- NOTE | 2017-02-26 14:18 | [facility] Operative Report ---
Operative Report Operative Date Feb 26, 2017. Pre-Operative Diagnosis Bladder stones with urinary tract infection Post-Operative Diagnosis Same Procedure(s) Performed Cystoscopy, Laser Lithotripsy, Basket Stone Extraction of Bladder Stones Surgeon Dr. Bustamante Cyber Forensics Analyst Surgeon(s) none Estimated Blood Loss 150 ml Findings round gonzalez dense stones anout 12, each 5 - 20mm size. cloudy urine Specimens A: Bladder stone fragments for analysis Drains 22 fr 3-way phelan Anesthesia iv sedation converted to general LMA Disposition Recovery Room / PACU Indications several bladder stones too large for removal in the office. We plan cysto laser litho basket stone extraction. Description of Procedure Patient was sedated and placed in lithotomy position. His genitals were prepped and draped in sterile fashion. Time out held with team. I calibrated the fossa navicularis to 22 fr with sounds. I placed a 22 fr rigid cystoscope to bladder. The urethra is unremarkable. The prostate is large and bleeds briskly with scope insertion. The urine is cloudy, and there are about a dozen gonzalez stones all round and smooth ranging in size from 5mmto 20mm. The UOs are not seen. I used a 1000 micron holmium laser to fragment the stones. They move around a lot being round and smooth. Bleeding is brisk likely due to elevated venous pressures and coumadin. I rinsed out about 80% of pieces and elect to end and stage the rest of procedure in a day or 2 as he has been under anesthesia for a while now. I left bladder full and placed a [address] phelan and inflated balloon with 15mL of water. I started 3 way CBI with saline. I placed a Band O suppository for post-op pain. He transferred to recovery under my escort, in stable condition. Plan: observe in house for cbi due to brisk hematuria consult hospitalist service Pyridium for dysuria x 3 days oral pain meds as needed ASA 4 dirty case cipro antibiotic container maker I attest to the content of the Intraoperative Record and any orders documented therein. Any exceptions are noted below.
[2017-02-26] MEDS ORDERED: ACETAMINOPHEN 325 MG TAB PO PRN (14:30)
[2017-02-26] MEDS ORDERED: NITROGLYCERIN 0.4 MG SL PER TAB CHARGE SL PRN (14:30)
[2017-02-26] MEDS ORDERED: IV FLUIDS COMPLETED PRN (14:45)
--- NOTE | 2017-02-26 15:17 | Anesthesiology Progress Note ---
Anesthesia Post Op Note Date & Time Feb 26, 2017 at 15:17 Vital Signs Pain Intensity: 1 Vital Signs Past 12 Hours Date Time Temp Pulse Resp B/P (MAP) Pulse Ox O2 Delivery O2 Flow Rate FiO2 02/26/17 14:55 36.5 02/26/17 14:52 106/63 02/26/17 14:50 61 17 02/26/17 14:50 70 17 93 02/26/17 14:47 118/72 02/26/17 14:45 71 20 96 02/26/17 14:45 72 20 02/26/17 14:43 118/73 02/26/17 14:40 62 20 02/26/17 14:40 62 20 93 02/26/17 14:36 116/75 02/26/17 14:35 68 13 93 02/26/17 14:35 68 13 02/26/17 14:31 123/66 02/26/17 14:30 60 19 94 02/26/17 14:30 Nasal Cannula 4 02/26/17 14:30 60 19 02/26/17 14:26 121/74 02/26/17 14:25 61 21 02/26/17 14:25 60 21 94 02/26/17 14:20 61 02/26/17 14:20 61 117/71 91 02/26/17 14:15 36.3 63 16 117/71 93 Oxymask 10 02/26/17 08:10 36.6 68 20 113/67 (82) 94 Nasal Cannula 2 Notes Mental Status: alert / awake / arousable, participated in evaluation Pt Amnestic to Procedure: Yes Nausea / Vomiting: adequately controlled Pain: adequately controlled Airway Patency, RR, SpO2: stable & adequate BP & HR: stable & adequate Hydration State: stable & adequate Anesthetic Complications: no major complications apparent
[2017-02-26] MEDS ORDERED: LEVO75TA5 PO (17:23)
--- NOTE | 2017-02-26 17:25 | Medical Consult ---
Consultation Date of Consultation: Feb 26, 2017. Attending Physician: Kamari Jordan M.D. Reason for Consultation: Post Op Medical Management History of Present Illness 76 year old male s/p cystoscopy, laser lithotripsy, and basket stone extraction of bladder stones. As an outpatient, patient had hematuria and decreased urine stream. He presented for the planned procedure today. Post operatively the patient is doing well. He reports his pain is well controlled. He denies chest pain and shortness of breath. No abdominal pain or nausea. He denies lightheadedness and dizziness. Patient is on Coumadin and had a 150cc EBL during surgery. He is requiring CBI. Phelan is in place draining pina colored urine. Past Medical/Surgical History Medical Problems: (1) AAA (abdominal aortic aneurysm) Permanent Comment: 3.8cm on last imaging Status: Chronic (2) BPH (benign prostatic hypertrophy) Status: Chronic (3) CAD (coronary artery disease) Permanent Comment: h/o anterior wall TN; s/p 2 stents to LAD ~ 2000 Status: Chronic (4) History of TIA (transient ischemic attack) Status: Chronic (5) HTN (hypertension) Status: Chronic (6) Hypothyroidism Status: Chronic (7) Ischemic cardiomyopathy Permanent Comment: echo 04/2016 EF 15-20% Status: Chronic (8) Pacemaker Status: Chronic (9) Paroxysmal atrial fibrillation Status: Chronic Surgical Problems: (1) AICD (automatic cardioverter/defibrillator) present Status: Chronic (2) History of appendectomy Permanent Comment: 1960 Status: Chronic Family History Hypertension MOTHER Social History Smoking Status: Never Smoker Alcohol Use: occasionally Allergies Coded Allergies: Spironolactone (Verified Allergy, Intermediate, LIP SWELLING, 02/26/17) Home Medications Levothyroxine Sodium 75 Mcg Tab 1 Tab PO DAILY 30 Days Lasix (Furosemide) 40 Mg Tab 40 Mg PO QAM Nitrostat (Nitroglycerin) 0.4 Mg Tab 1 Tab SL UD Aspirin Chewable (Aspirin) 81 Mg Chew 81 Mg PO QAM Hydralazine HCl 25 Mg Tab 25 Mg PO TID Imdur Ext Rel (Isosorbide Mononitrate) 30 Mg Ertab 1 Tab PO QAM 30 Days Coumadin (Warfarin Sodium) 5 Mg Tab 5 Mg PO UD TAKE 7.5MG MON AND THURS. ALL OTHER DAYS TAKE 5 MG. Potassium Chloride Er (Potassium Chloride Microencaps) 10 Meq Tab 1 Tab PO 2XWK 30 Days TAKES DIFFERENT TIMES [place]-3 (Fish Oil) 1 Ea Cap 1,000 Mg PO QAM Proscar (Finasteride) 5 Mg Tab 5 Mg PO QPM Zocor (Simvastatin) 10 Mg Tab 10 Mg PO QPM Hytrin (Terazosin HCl) 5 Mg Cap 10 Mg PO QPM Coreg * (Carvedilol) 25 Mg Tab 25 Mg PO BID Current Inpatient Medications Current Inpatient Medications Medications (Trade) Dose Ordered Sig/Jossie Route Start Time Stop Time Status Last Admin Dose Admin Belladonna/Opium (B & O Adult Supp) 60 mg Q8 PRN WV 02/26/17 14:30 03/12/17 14:29 Dextrose/Sodium Chloride 1,000 ml @ 15 mls/hr Q24H IV 02/26/17 14:18 03/28/17 14:17 UNV Ciprofloxacin (Cipro Tab) 500 mg Q12H PO 02/26/17 14:30 03/08/17 14:29 UNV Acetaminophen (Tylenol Tab) 650 mg Q6H PRN PO 02/26/17 14:30 03/28/17 14:29 Ondansetron HCl (Zofran Inj) 4 mg Q6H PRN IV 02/26/17 14:30 03/28/17 14:29 Docusate Sodium (coLACE CAP) 100 mg BID PO 02/26/17 21:00 03/28/17 20:59 UNV Aspirin (Aspirin Chew) 81 mg QAM PO 02/27/17 09:00 03/29/17 08:59 UNV Carvedilol (Coreg Tab) 25 mg BID PO 02/26/17 21:00 03/28/17 20:59 UNV Finasteride (Proscar Tab) 5 mg QPM PO 02/26/17 21:00 03/28/17 20:59 UNV Furosemide (Lasix Tab) 40 mg QAM PO 02/27/17 09:00 03/29/17 08:59 UNV Hydralazine HCl (Apresoline Tab) 25 mg TID PO 02/26/17 21:00 03/28/17 20:59 UNV Isosorbide Mononitrate (Imdur Ext Rel Tab) 30 mg QAM PO 02/27/17 09:00 03/29/17 08:59 UNV Levothyroxine Sodium (Synthroid Tab) 50 mcg QAM PO 02/27/17 09:00 03/29/17 08:59 UNV Nitroglycerin (Nitrostat Tab) 0.4 mg UD PRN SL 02/26/17 14:30 03/28/17 14:29 Potassium Chloride (Klor-Con M10) 10 meq DAILY PO 02/27/17 09:00 03/29/17 08:59 UNV Simvastatin (Zocor Tab) 10 mg QPM PO 02/26/17 21:00 03/28/17 20:59 UNV Terazosin HCl (Hytrin Cap) 10 mg QPM PO 02/26/17 21:00 03/28/17 20:59 UNV Miscellaneous (Iv Fluids Completed) 1 ea PRN PRN N/A 02/26/17 14:45 02/26/18 14:44 Review of Systems ROS per HPI, all other systems reviewed and negative Physical Exam Date Time Temp Pulse Resp B/P (MAP) Pulse Ox O2 Delivery O2 Flow Rate FiO2 02/26/17 15:31 60 20 02/26/17 15:31 60 20 121/69 93 02/26/17 15:26 60 21 120/66 94 02/26/17 15:26 60 21 02/26/17 15:21 60 19 122/68 93 02/26/17 15:21 60 19 02/26/17 15:17 105/69 02/26/17 15:16 62 20 93 02/26/17 15:16 62 20 02/26/17 15:11 61 17 110/55 96 02/26/17 15:11 61 17 02/26/17 15:06 61 23 02/26/17 15:06 62 23 115/85 92 02/26/17 15:01 60 22 117/64 94 02/26/17 15:01 60 22 02/26/17 14:56 61 23 123/64 92 02/26/17 14:56 60 23 02/26/17 14:55 36.5 02/26/17 14:52 106/63 02/26/17 14:50 61 17 02/26/17 14:50 70 17 93 02/26/17 14:47 118/72 02/26/17 14:45 71 20 96 02/26/17 14:45 72 20 02/26/17 14:43 118/73 02/26/17 14:40 62 20 02/26/17 14:40 62 20 93 02/26/17 14:36 116/75 02/26/17 14:35 68 13 93 02/26/17 14:35 68 13 02/26/17 14:31 123/66 02/26/17 14:30 60 19 94 02/26/17 14:30 Nasal Cannula 4 02/26/17 14:30 60 19 02/26/17 14:26 121/74 02/26/17 14:25 61 21 02/26/17 14:25 60 21 94 02/26/17 14:20 61 02/26/17 14:20 61 117/71 91 02/26/17 14:15 36.3 63 16 117/71 93 Oxymask 10 02/26/17 08:10 36.6 68 20 113/67 (82) 94 Nasal Cannula 2 General Appearance: no apparent distress Head: normocephalic, atraumatic Eyes: normal inspection, sclerae normal ENT: hearing grossly normal Neck: supple, no JVD Respiratory/Chest: lungs clear, normal breath sounds, no respiratory distress Cardiovascular: regular rate, rhythm, no edema, normal peripheral pulses Abdomen/GI: normal bowel sounds, non tender, soft Genitourinary - Male: + pertinent finding (phelan in place with CBI draining pina colored urine) Neurologic/Psych: no motor/sensory deficits, alert, normal mood/affect, oriented x 3 Skin: normal color, warm/dry Laboratory Results Last 24 Hours Test 02/26/17 00:00 02/26/17 08:23 Prothrombin Time 22.7 SECONDS Prothromb Time International Ratio 2.1 Activated Partial Thromboplast Time 36.2 SECONDS Partial Thromboplastin Ratio 1.4 Assessment & Plan S/P CYSTO WITH LASER LITHOTRIPSY AND BASKET STONE EXTRACTION OF BLADDER STONES - POD#0 - patient being monitored overnight for bleeding - on Coumadin, INR 2.1 - phelan in place with CBI - per Dr. Bustamante - holding Coumadin and Fish Oil - check H/H in AM ISCHEMIC CARDIOMYOPATHY S/P AICD/PACER - appears euvolemic - continue furosemide - EF 15-20% PAROXYSMAL ATRIAL FIBRILLATION - rate controlled on beta cecile, will continue - holding Coumadin as above CAD - stable, no reports of chest pain - continue ASA, beta cecile, and statin BPH - continue finasteride and terazosin HYPOTHYROIDISM - continue levothyroxine DVT PROPHYLAXIS - SCDs when INR < 2.0 Thank you for this consultation. We will follow the patient with you during their hospital stay. You can reach a [facility] via pager @ . Addendum: I have seen and examined the patient and agree with the assessment and plan as above. Dwain, DO
[2017-02-26] MEDS: D5W AND 1/2NSS 1,000 ML IV SCH (17:36)
[2017-02-26] MEDS: FINASTERIDE 5 MG TAB PO SCH (22:12)
[2017-02-26] MEDS: SIMVASTATIN 10 MG TAB PO SCH (22:12)
[2017-02-26] MEDS: CARVEDILOL 25 MG TAB PO SCH (22:12)
[2017-02-26] MEDS: DOCUSATE SODIUM 100 MG CAP PO SCH (22:12)
[2017-02-26] MEDS: CIPROFLOXACIN 500 MG TAB PO SCH (22:12)
[2017-02-27] VITALS (19 sets, daily range): BP systolic 90–141; BP diastolic 42–87; PULSE 59–66; TEMP 36.3–36.9; O2SAT 90–97
[2017-02-27] MEDS ORDERED: NURSING VERBAL MED ORDER ONE ×2 (05:15→11:45)
[2017-02-27] MEDS ORDERED: MoRPHine SULFATE 2 MG/ML CARP ONE (05:16)
[2017-02-27] MEDS ORDERED: LEVOTHYROXINE 50 MCG TAB PO SCH (06:00)
[2017-02-27 06:24] LABS: HEMATOCRIT 39.3 % (42-52); MEAN CORPUSCULAR HEMOGLOBIN 31.3 pg (25-34); MEAN CORPUSCULAR HGB CONC 31.3 g/dl (32-36); MEAN PLATELET VOLUME 10.1 fL (7.4-10.4); PLATELET COUNT 141 K/uL (130-400); RED BLOOD COUNT 3.93 M/uL (4.7-6.1); WHITE BLOOD COUNT 11.59 K/uL (4.8-10.8)
[2017-02-27 06:42] LABS: INR 2.2 (0.9-1.1); PROTHROMBIN TIME (PATIENT) 24.3 SECONDS (9.0-12.0)
[2017-02-27 07:02] LABS: CALCIUM 7.9 mg/dl (8.5-10.1); CREATININE 1.1 mg/dl (0.60-1.40); POTASSIUM 4.3 mmol/L (3.5-5.1)
[2017-02-27] MEDS ORDERED: PHYTONADIONE INJ 2.5 MG in SODIUM CHLORIDE 0.9% 50ML 50 ML IV STA (08:18)
[2017-02-27] MEDS: CARVEDILOL 25 MG TAB PO SCH ×2 (08:43→21:01)
[2017-02-27] MEDS: DOCUSATE SODIUM 100 MG CAP PO SCH ×2 (08:43→21:01)
[2017-02-27] MEDS: POTASSIUM CHLORIDE 10 MEQ TABCR PO SCH (08:44)
[2017-02-27] MEDS: ISOSORBIDE MONONITRATE 30 MG TABCR PO SCH (08:44)
[2017-02-27] MEDS: CIPROFLOXACIN 500 MG TAB PO SCH ×2 (08:45→21:02)
[2017-02-27] MEDS ORDERED: FUROSEMIDE 40 MG TAB PO SCH (09:00)
[2017-02-27] MEDS: ASPIRIN 81 MG ECTAB PO SCH (09:50)
[2017-02-27] MEDS: LEVOTHYROXINE 75 MCG TAB PO SCH (10:54)
[2017-02-27] MEDS ORDERED: SODIUM CHLORIDE 0.9% 1000ML 250 ML IV STA (11:41)
--- NOTE | 2017-02-27 13:14 | Anesthesiology Progress Note ---
Anesthesia Post Op Note Date & Time Feb 27, 2017 at 13:13 Vital Signs Pain Intensity: 1.0 Vital Signs Past 12 Hours Date Time Temp Pulse Resp B/P (MAP) Pulse Ox O2 Delivery O2 Flow Rate FiO2 02/27/17 13:10 61 93/51 (65) 02/27/17 12:08 60 92/42 (59) 02/27/17 11:20 36.7 61 18 90/43 (59) 95 Nasal Cannula 3.0 02/27/17 10:50 36.9 61 16 93/53 (66) 94 Nasal Cannula 3.0 02/27/17 10:20 36.8 60 16 93/53 (66) 93 Nasal Cannula 3.0 02/27/17 09:50 36.7 59 18 100/55 (70) 94 Nasal Cannula 3.0 02/27/17 09:30 36.8 16 130/65 (86) 92 Nasal Cannula 3.0 02/27/17 08:41 61 123/69 (87) 02/27/17 07:10 36.6 61 16 109/63 (78) 96 Nasal Cannula 3.0 02/27/17 03:52 36.9 61 17 141/87 (105) 96 Nasal Cannula 3.0 Notes Mental Status: alert / awake / arousable, participated in evaluation Pt Amnestic to Procedure: Yes Nausea / Vomiting: adequately controlled Pain: adequately controlled Airway Patency, RR, SpO2: stable & adequate BP & HR: stable & adequate Hydration State: stable & adequate Anesthetic Complications: no major complications apparent
[2017-02-27] MEDS: D5W AND 1/2NSS 1,000 ML IV SCH (14:31)
[2017-02-27] MEDS ORDERED: FENTANYL CITRATE INJ 50 MCG/1 ML 2 ML VIAL ONE (15:25)
[2017-02-27] MEDS ORDERED: MIDAZOLAM HCL 1 MG/ML 2ML VIAL ONE (15:25)
--- NOTE | 2017-02-27 15:43 | Progress Note ---
Subjective Date of Service: Feb 27, 2017. Subjective Pt evaluation today including: conversation w/ patient, physical exam, chart review, lab review Voiding: phelan catheter in place, voiding difficulty Patietn with gross hematuria since post-op. Had clot retention this am and was hand irrigated at bedside. I also gave 2.5mg vit K iv. He feels well. No further clogs of cath since 6am. Review of Systems Constitutional: No fever, No chills, No sweats ENT: + hearing loss Respiratory: No cough, No shortness of breath Cardiac: No chest pain, No edema, No palpitations Abdomen: No vomiting Objective Vital Signs Date Time Temp Pulse Resp B/P (MAP) Pulse Ox O2 Delivery O2 Flow Rate FiO2 02/27/17 15:19 36.6 62 16 121/69 (86) 95 Room Air 02/27/17 14:30 61 90/45 (60) 02/27/17 13:10 61 93/51 (65) 02/27/17 12:08 60 92/42 (59) 02/27/17 11:20 36.7 61 18 90/43 (59) 95 Nasal Cannula 3.0 02/27/17 10:50 36.9 61 16 93/53 (66) 94 Nasal Cannula 3.0 02/27/17 10:20 36.8 60 16 93/53 (66) 93 Nasal Cannula 3.0 02/27/17 09:50 36.7 59 18 100/55 (70) 94 Nasal Cannula 3.0 02/27/17 09:30 36.8 16 130/65 (86) 92 Nasal Cannula 3.0 02/27/17 08:41 61 123/69 (87) 02/27/17 07:30 96 Room Air 02/27/17 07:10 36.6 61 16 109/63 (78) 96 Nasal Cannula 3.0 02/27/17 03:52 36.9 61 17 141/87 (105) 96 Nasal Cannula 3.0 02/26/17 23:19 36.8 60 16 115/66 (82) 94 Nasal Cannula 3.0 02/26/17 22:16 65 108/59 (75) 02/26/17 20:10 Nasal Cannula 4.0 02/26/17 19:40 37.3 60 17 128/74 (92) 96 Nasal Cannula 4.0 02/26/17 17:48 93 Nasal Cannula 4.0 02/26/17 17:45 37.0 58 17 126/69 (88) 96 Nasal Cannula 4.0 02/26/17 16:45 36.3 61 18 130/78 (95) 96 Nasal Cannula 4.0 02/26/17 16:15 36.3 60 17 127/75 (92) 96 Nasal Cannula 4.0 02/26/17 15:45 Nasal Cannula 4.0 02/26/17 15:45 82 Nasal Cannula 3.0 02/26/17 15:45 36.3 64 16 124/69 (87) 96 Nasal Cannula 4.0 Physical Exam General Appearance: WD/WN, no apparent distress, + thin Eyes: normal inspection Neck: no adenopathy, no JVD Respiratory/Chest: normal breath sounds, no accessory muscle use Cardiovascular: no edema Abdomen: soft Extremities: normal inspection, no pedal edema, no calf tenderness Neurologic/Psychiatric: alert, normal mood/affect, oriented x 3 Skin: normal color, warm/dry, no rash Laboratory Results Last 24 Hours Test 02/27/17 05:33 White Blood Count 11.59 K/uL Red Blood Count 3.93 M/uL Hemoglobin 12.3 g/dL Hematocrit 39.3 % Mean Corpuscular Volume 100.0 fL Mean Corpuscular Hemoglobin 31.3 pg Mean Corpuscular Hemoglobin Concent 31.3 g/dl RDW Standard Deviation 46.2 fL RDW Coefficient of Variation 12.5 % Platelet Count 141 K/uL Mean Platelet Volume 10.1 fL Prothrombin Time 24.3 SECONDS Prothromb Time International Ratio 2.2 Sodium Level 136 mmol/L Potassium Level 4.3 mmol/L Chloride Level 100 mmol/L Carbon Dioxide Level 33 mmol/L Anion Gap 3.0 mmol/L Blood Urea Nitrogen 21 mg/dl Creatinine 1.10 mg/dl Est Creatinine Clear Calc Drug Dose 64.0 ml/min Estimated GFR () 75.2 Estimated GFR (Non- 64.9 BUN/Creatinine Ratio 19.0 Random Glucose 125 mg/dl Calcium Level 7.9 mg/dl Assessment and Plan residual stones and clots after laser of several vbladder stones plan laser and removal of residual stones today under general or twilight anesthesia. on cipro PO BID
--- NOTE | 2017-02-27 16:14 | Progress Note ---
Internal Med Progress Note Date of Service: Feb 27, 2017. Provider Documentation: SUBJECTIVE: Seen and examined post OP. Doing well. denies chest pain, SOB, abdominal pain Currently in PACU OBJECTIVE: Vital Signs-as noted below Physical Exam: General Appearance:Moderately built and nourished, no apparent distress Head: normocephalic, Atraumatic Eyes: normal inspection, EOMI, PERRL Neck: supple, Trachea midline Respiratory/Chest: Normal breath sounds, CTA Cardiovascular: S1, S2, No murmur Abdomen/GI:Soft, Non tender, Bowel sounds present Extremities/Musculoskelatal:normal inspection, no edema Neurologic/Psych:grossly no focal neurological deficits Skin: normal color, warm Lab data as noted below. ASSESSMENT & PLAN: S/P Cysto, laser lithotripsy and stone extraction POD # 1 Planned for residual stone removal today phelan in place with CBI Appreciate Urology Dr. Bustamante help Hold coumadin and Fish Oil for now monitor H&H Mild leukocytosis Continue Ciprofloxacin for now S/P Vitamin K Ischemic Cardiomyopathy S/P AICD/Pacer appears euvolemic Hold furosemide for now as relative hypotension EF 15-20% P.Afib rate controlled continue BB hold coumadin for now Monitor INR H/O CAD continue ASA, BB, statin BPH continue finasteride, terazosin Hypothyroidism: continue levothyroxine DVT Px INR therapeutic SCDs Vital Signs: Date Time Temp Pulse Resp B/P (MAP) Pulse Ox O2 Delivery O2 Flow Rate FiO2 02/27/17 18:45 36.4 63 22 103/59 93 Nasal Cannula 4 02/27/17 18:35 60 21 116/63 94 Nasal Cannula 4 02/27/17 18:25 62 19 130/74 98 Oxymask 10 02/27/17 18:15 68 29 133/77 97 Oxymask 10 02/27/17 18:08 36.4 61 22 124/71 97 Oxymask 10 02/27/17 15:19 36.6 62 16 121/69 (86) 95 Room Air 02/27/17 14:30 61 90/45 (60) 02/27/17 13:10 61 93/51 (65) 02/27/17 12:08 60 92/42 (59) 02/27/17 11:20 36.7 61 18 90/43 (59) 95 Nasal Cannula 3.0 02/27/17 10:50 36.9 61 16 93/53 (66) 94 Nasal Cannula 3.0 02/27/17 10:20 36.8 60 16 93/53 (66) 93 Nasal Cannula 3.0 02/27/17 09:50 36.7 59 18 100/55 (70) 94 Nasal Cannula 3.0 02/27/17 09:30 36.8 16 130/65 (86) 92 Nasal Cannula 3.0 02/27/17 08:41 61 123/69 (87) 02/27/17 07:30 96 Room Air 02/27/17 07:10 36.6 61 16 109/63 (78) 96 Nasal Cannula 3.0 02/27/17 03:52 36.9 61 17 141/87 (105) 96 Nasal Cannula 3.0 02/26/17 23:19 36.8 60 16 115/66 (82) 94 Nasal Cannula 3.0 02/26/17 22:16 65 108/59 (75) 02/26/17 20:10 Nasal Cannula 4.0 02/26/17 19:40 37.3 60 17 128/74 (92) 96 Nasal Cannula 4.0 Lab Results: Results Past 24 Hours Test 02/27/17 05:33 Range/Units White Blood Count 11.59 4.8-10.8 K/uL Red Blood Count 3.93 4.7-6.1 M/uL Hemoglobin 12.3 14.0-18.0 g/dL Hematocrit 39.3 42-52 % Mean Corpuscular Volume 100.0 80-100 fL Mean Corpuscular Hemoglobin 31.3 25-34 pg Mean Corpuscular Hemoglobin Concent 31.3 32-36 g/dl RDW Standard Deviation 46.2 36.4-46.3 fL RDW Coefficient of Variation 12.5 11.5-14.5 % Platelet Count 141 130-400 K/uL Mean Platelet Volume 10.1 7.4-10.4 fL Prothrombin Time 24.3 9.0-12.0 SECONDS Prothromb Time International Ratio 2.2 0.9-1.1 Sodium Level 136 136-145 mmol/L Potassium Level 4.3 3.5-5.1 mmol/L Chloride Level 100 98-107 mmol/L Carbon Dioxide Level 33 21-32 mmol/L Anion Gap 3.0 3-11 mmol/L Blood Urea Nitrogen 21 7-18 mg/dl Creatinine 1.10 0.60-1.40 mg/dl Est Creatinine Clear Calc Drug Dose 64.0 ml/min Estimated GFR () 75.2 Estimated GFR (Non- 64.9 BUN/Creatinine Ratio 19.0 10-20 Random Glucose 125 70-99 mg/dl Calcium Level 7.9 8.5-10.1 mg/dl
[2017-02-27] MEDS ORDERED: ONDANSETRON INJ 2 MG/ML 2 ML VIAL IV PRN (16:15)
[2017-02-27] MEDS ORDERED: EpHEDrine SULFATE INJ 50 MG/ML AMP IV PRN (16:15)
[2017-02-27] MEDS ORDERED: FENTANYL CITRATE INJ 50 MCG/1 ML 2 ML VIAL IV PRN (16:15)
[2017-02-27] MEDS ORDERED: ATROPINE SULFATE 0.1 MG/ML 5ML SYR IV PRN (16:15)
[2017-02-27] MEDS ORDERED: BELLADONNA/OPIUM SUPP 60 MG SUPP PR ONE ×2 (16:56→19:06)
[2017-02-27] MEDS ORDERED: KETAMINE HCL INJ 50 MG/ML 10 ML VIAL ONE (16:56)
[2017-02-27] MEDS ORDERED: PROPOFOL IV EMULSION 10 MG/ML 20 ML VIAL IV ONE (17:01)
--- NOTE | 2017-02-27 18:23 | [facility] Operative Report ---
Operative Report Operative Date Feb 27, 2017. Pre-Operative Diagnosis Residual stones and clots after laser of several bladder stones Post-Operative Diagnosis Residual stones and clots after laser of several bladder stones Procedure(s) Performed Cystoscopy, Laser Lithotripsy Bladder Stones, Clot Evacuation Surgeon Dr. Bustamante Digester Operator Surgeon(s) none Estimated Blood Loss 100ml Findings 3 medium bladder stones and about a dozen stone fragments, 4 tablespoons of clot Fluids 200mL Specimens A. Bladder stones Drains 20 fr 3-way phelan Anesthesia general LMA Complication(s) None Disposition Recovery Room / PACU Indications residual stones after initial laser litho of multiple bladder stones. Description of Procedure Patient was given general LMA and placed in lithotomy position. His genitals were prepped and draped in sterile fashion. Time out held with team. I placed a 22 fr rigid cystoscope to bladder. The urethra is unremarkable. The prostate is large and bleeds briskly with scope insertion. There is a small amount of thick clot at the bladder neck. I evacuated it with the adapter and Samantha syringe. The UOs are not seen. I used a 1000 micron holmium laser to fragment the 3 medium round remaining stones. I also further fragemted the larger pieces remaining. The are deep in the groove btw the prostate large middle lobe and the bladder neck. I rinsed out about 80% of pieces and then picked up remaining small freagments with a grasper. I left bladder full and placed a [address] phelan and inflated balloon with 15mL of water. I started 3 way CBI with saline. I placed a Band O suppository for post-op pain. He transferred to recovery under my escort, in stable condition. Plan: observe in house for cbi due to brisk hematuria consult hospitalist service Pyridium for dysuria x 3 days oral pain meds as needed hopefully wean cbi and discharge tomorrow I attest to the content of the Intraoperative Record and any orders documented therein. Any exceptions are noted below.
--- NOTE | 2017-02-27 18:42 | Anesthesiology Progress Note ---
Anesthesia Post Op Note Date & Time Feb 27, 2017 at 18:41 Vital Signs Pain Intensity: 1.0 Vital Signs Past 12 Hours Date Time Temp Pulse Resp B/P (MAP) Pulse Ox O2 Delivery O2 Flow Rate FiO2 02/27/17 18:35 60 21 116/63 94 Nasal Cannula 4 02/27/17 18:25 62 19 130/74 98 Oxymask 10 02/27/17 18:15 68 29 133/77 97 Oxymask 10 02/27/17 18:08 36.4 61 22 124/71 97 Oxymask 10 02/27/17 15:19 36.6 62 16 121/69 (86) 95 Room Air 02/27/17 14:30 61 90/45 (60) 02/27/17 13:10 61 93/51 (65) 02/27/17 12:08 60 92/42 (59) 02/27/17 11:20 36.7 61 18 90/43 (59) 95 Nasal Cannula 3.0 02/27/17 10:50 36.9 61 16 93/53 (66) 94 Nasal Cannula 3.0 02/27/17 10:20 36.8 60 16 93/53 (66) 93 Nasal Cannula 3.0 02/27/17 09:50 36.7 59 18 100/55 (70) 94 Nasal Cannula 3.0 02/27/17 09:30 36.8 16 130/65 (86) 92 Nasal Cannula 3.0 02/27/17 08:41 61 123/69 (87) 02/27/17 07:30 96 Room Air 02/27/17 07:10 36.6 61 16 109/63 (78) 96 Nasal Cannula 3.0 Notes Mental Status: alert / awake / arousable, participated in evaluation Pt Amnestic to Procedure: Yes Nausea / Vomiting: adequately controlled Pain: adequately controlled Airway Patency, RR, SpO2: stable & adequate BP & HR: stable & adequate Hydration State: stable & adequate Anesthetic Complications: no major complications apparent
[2017-02-27] MEDS: FINASTERIDE 5 MG TAB PO SCH (21:41)
[2017-02-27] MEDS: SIMVASTATIN 10 MG TAB PO SCH (21:41)
[2017-02-28] VITALS (7 sets, daily range): BP systolic 121–138; BP diastolic 68–80; PULSE 56–63; TEMP 36.6–36.8; O2SAT 93–97
[2017-02-28] MEDS: LEVOTHYROXINE 75 MCG TAB PO SCH (06:06)
[2017-02-28 07:19] LABS: BASO % 0.2 %; BASO ABS # 0.01 K/uL (0-0.2); COMPLETE YES; EOS % 0.3 %; HEMATOCRIT 33.6 % (42-52); LYMPH % 12.8 %; LYMPH ABS # 0.81 K/uL (1.2-3.4); MEAN CELL VOLUME 101.2 fL (80-100); MEAN CORPUSCULAR HEMOGLOBIN 32.8 pg (25-34); MEAN CORPUSCULAR HGB CONC 32.4 g/dl (32-36); MEAN PLATELET VOLUME 9.6 fL (7.4-10.4); MONO % 10.1 %; NEUT % 76.6 %; PLATELET COUNT 103 K/uL (130-400); RED BLOOD COUNT 3.32 M/uL (4.7-6.1); WHITE BLOOD COUNT 6.34 K/uL (4.8-10.8)
[2017-02-28 07:27] LABS: INR 1.2 (0.9-1.1); PROTHROMBIN TIME (PATIENT) 13.3 SECONDS (9.0-12.0)
[2017-02-28 07:51] LABS: BUN/CREATININE RATIO 17.2 (10-20); CALCIUM 8.6 mg/dl (8.5-10.1); CREATININE 0.86 mg/dl (0.60-1.40)
[2017-02-28] MEDS: ASPIRIN 81 MG ECTAB PO SCH (08:35)
[2017-02-28] MEDS: ISOSORBIDE MONONITRATE 30 MG TABCR PO SCH (08:36)
[2017-02-28] MEDS: POTASSIUM CHLORIDE 10 MEQ TABCR PO SCH (08:36)
--- NOTE | 2017-02-28 08:49 | Anesthesiology Progress Note ---
Anesthesia Post Op Note Date & Time Feb 28, 2017 at 08:49 Vital Signs Pain Intensity: 0.0 Vital Signs Past 12 Hours Date Time Temp Pulse Resp B/P (MAP) Pulse Ox O2 Delivery O2 Flow Rate FiO2 02/28/17 07:00 36.7 56 15 121/68 (85) 97 Nasal Cannula 2.0 02/28/17 04:06 36.7 60 14 129/78 (95) 97 Nasal Cannula 3.0 02/28/17 00:45 Nasal Cannula 2.0 02/27/17 22:48 36.8 60 16 93/51 (65) 97 Nasal Cannula 3.0 02/27/17 22:21 36.7 60 18 111/49 (69) 94 Nasal Cannula 2.0 02/27/17 21:07 36.8 60 18 112/57 (75) 94 Nasal Cannula 2.0 Notes Mental Status: alert / awake / arousable, participated in evaluation Pt Amnestic to Procedure: Yes Nausea / Vomiting: adequately controlled Pain: adequately controlled Airway Patency, RR, SpO2: stable & adequate BP & HR: stable & adequate Hydration State: stable & adequate Anesthetic Complications: no major complications apparent
[2017-02-28] MEDS: CIPROFLOXACIN 500 MG TAB PO SCH ×2 (09:16→21:08)
[2017-02-28] MEDS: DOCUSATE SODIUM 100 MG CAP PO SCH ×2 (09:16→21:07)
[2017-02-28] MEDS: CARVEDILOL 25 MG TAB PO SCH ×2 (09:16→21:07)
--- NOTE | 2017-02-28 09:37 | Progress Note ---
Subjective Date of Service: Feb 28, 2017. Subjective Pt evaluation today including: conversation w/ patient, physical exam, lab review Voiding: phelan catheter in place Patient feels well. He had no obstruction of catheter overnight on medium CBI. We held cbi for 30 minutes this am and he turned a medium pink. COumadin and fish oil are held. Review of Systems Constitutional: No fever, No chills, No fatigue Cardiac: No chest pain, No palpitations Objective Vital Signs Date Time Temp Pulse Resp B/P (MAP) Pulse Ox O2 Delivery O2 Flow Rate FiO2 02/28/17 09:17 62 02/28/17 07:00 36.7 56 15 121/68 (85) 97 Nasal Cannula 2.0 02/28/17 04:06 36.7 60 14 129/78 (95) 97 Nasal Cannula 3.0 02/28/17 00:45 Nasal Cannula 2.0 02/27/17 22:48 36.8 60 16 93/51 (65) 97 Nasal Cannula 3.0 02/27/17 22:21 36.7 60 18 111/49 (69) 94 Nasal Cannula 2.0 02/27/17 21:07 36.8 60 18 112/57 (75) 94 Nasal Cannula 2.0 02/27/17 20:13 36.4 60 18 119/65 (83) 90 Nasal Cannula 2.0 02/27/17 19:47 36.5 66 18 132/74 (93) 93 Nasal Cannula 2.0 02/27/17 19:23 93 Nasal Cannula 2.0 02/27/17 19:15 Nasal Cannula 2.0 02/27/17 19:15 36.3 65 16 118/67 (84) 93 Nasal Cannula 2.0 02/27/17 19:05 60 15 105/67 96 Nasal Cannula 4 02/27/17 18:55 74 17 116/67 94 Nasal Cannula 4 02/27/17 18:45 36.4 63 22 103/59 93 Nasal Cannula 4 02/27/17 18:35 60 21 116/63 94 Nasal Cannula 4 02/27/17 18:25 62 19 130/74 98 Oxymask 10 02/27/17 18:15 68 29 133/77 97 Oxymask 10 02/27/17 18:08 36.4 61 22 124/71 97 Oxymask 10 02/27/17 15:19 36.6 62 16 121/69 (86) 95 Room Air 02/27/17 14:30 61 90/45 (60) 02/27/17 13:10 61 93/51 (65) 02/27/17 12:08 60 92/42 (59) 02/27/17 11:20 36.7 61 18 90/43 (59) 95 Nasal Cannula 3.0 02/27/17 10:50 36.9 61 16 93/53 (66) 94 Nasal Cannula 3.0 02/27/17 10:20 36.8 60 16 93/53 (66) 93 Nasal Cannula 3.0 02/27/17 09:50 36.7 59 18 100/55 (70) 94 Nasal Cannula 3.0 Physical Exam General Appearance: WD/WN, no apparent distress ENT: hearing grossly normal Respiratory/Chest: normal breath sounds, no respiratory distress Abdomen: non tender Extremities: non-tender, normal inspection, no pedal edema Neurologic/Psychiatric: alert, normal mood/affect, oriented x 3 Comments: phelan in place with gross blood along catheter and pink urine runnign with cbi. Laboratory Results Last 24 Hours Test 02/28/17 07:04 White Blood Count 6.34 K/uL Red Blood Count 3.32 M/uL Hemoglobin 10.9 g/dL Hematocrit 33.6 % Mean Corpuscular Volume 101.2 fL Mean Corpuscular Hemoglobin 32.8 pg Mean Corpuscular Hemoglobin Concent 32.4 g/dl Platelet Count 103 K/uL Mean Platelet Volume 9.6 fL Neutrophils (%) (Auto) 76.6 % Lymphocytes (%) (Auto) 12.8 % Monocytes (%) (Auto) 10.1 % Eosinophils (%) (Auto) 0.3 % Basophils (%) (Auto) 0.2 % Neutrophils # (Auto) 4.86 K/uL Lymphocytes # (Auto) 0.81 K/uL Monocytes # (Auto) 0.64 K/uL Eosinophils # (Auto) 0.02 K/uL Basophils # (Auto) 0.01 K/uL RDW Standard Deviation 47.6 fL RDW Coefficient of Variation 12.9 % Immature Granulocyte % (Auto) 0.0 % Immature Granulocyte # (Auto) 0.00 K/uL Prothrombin Time 13.3 SECONDS Prothromb Time International Ratio 1.2 Sodium Level 139 mmol/L Potassium Level 4.0 mmol/L Chloride Level 102 mmol/L Carbon Dioxide Level 36 mmol/L Anion Gap 1.0 mmol/L Blood Urea Nitrogen 15 mg/dl Creatinine 0.86 mg/dl Est Creatinine Clear Calc Drug Dose 81.9 ml/min Estimated GFR () 97.6 Estimated GFR (Non- 84.2 BUN/Creatinine Ratio 17.2 Random Glucose 88 mg/dl Calcium Level 8.6 mg/dl Assessment and Plan Post op from staged removal of multiple bladder stones Has enterococcus on urine culture from Friday continue cipro try to hold cbi at noon. hopefully remove phelan this afternoon and discharge suggest hold coumadin 2 more days.
[2017-02-28] MEDS: D5W AND 1/2NSS 1,000 ML IV SCH (14:06)
--- NOTE | 2017-02-28 15:42 | Progress Note ---
Internal Med Progress Note Date of Service: Feb 28, 2017. Provider Documentation: SUBJECTIVE: Seen and examined at bedside State shaving minimal dysuria currently getting CBI Denies chest pain, SOB Family at bedside OBJECTIVE: Vital Signs-as noted below Physical Exam: General Appearance:Moderately built and nourished, no apparent distress Head: normocephalic, Atraumatic Eyes: normal inspection, EOMI, PERRL Neck: supple, Trachea midline Respiratory/Chest: decreased breath sounds, Few scattered creps Cardiovascular: S1, S2, No murmur Abdomen/GI:Soft, Non tender, Bowel sounds present Extremities/Musculoskelatal:normal inspection, no edema Neurologic/Psych:grossly no focal neurological deficits Skin: normal color, warm Lab data as noted below. ASSESSMENT & PLAN: S/P Cysto, laser lithotripsy and staged removal of multiple bladder stones POD # 2 Continue CBI per Urology Appreciate Urology Dr. Bustamante help Hold coumadin, Fish Oil for now monitor H&H leukocytosis resolved Urine Culture: Enterococcus ([facility] records) Continue Ciprofloxacin Ischemic Cardiomyopathy S/P AICD/Pacer appears euvolemic Hold furosemide for now as relative hypotension EF 15-20% P.Afib rate controlled continue BB hold coumadin for now Monitor INR:1.2 H/O CAD continue ASA, BB, statin BPH continue finasteride, terazosin Hypothyroidism: continue levothyroxine DVT Px SCDs for now Disposition: Per Primary team Vital Signs: Date Time Temp Pulse Resp B/P (MAP) Pulse Ox O2 Delivery O2 Flow Rate FiO2 02/28/17 14:48 36.6 60 18 129/72 (91) 93 Nasal Cannula 2.0 02/28/17 11:50 36.8 63 16 131/70 (90) 96 Room Air 02/28/17 09:17 62 02/28/17 08:00 Nasal Cannula 2.0 02/28/17 07:00 36.7 56 15 121/68 (85) 97 Nasal Cannula 2.0 02/28/17 04:06 36.7 60 14 129/78 (95) 97 Nasal Cannula 3.0 02/28/17 00:45 Nasal Cannula 2.0 02/27/17 22:48 36.8 60 16 93/51 (65) 97 Nasal Cannula 3.0 02/27/17 22:21 36.7 60 18 111/49 (69) 94 Nasal Cannula 2.0 02/27/17 21:07 36.8 60 18 112/57 (75) 94 Nasal Cannula 2.0 02/27/17 20:13 36.4 60 18 119/65 (83) 90 Nasal Cannula 2.0 02/27/17 19:47 36.5 66 18 132/74 (93) 93 Nasal Cannula 2.0 02/27/17 19:23 93 Nasal Cannula 2.0 02/27/17 19:15 Nasal Cannula 2.0 02/27/17 19:15 36.3 65 16 118/67 (84) 93 Nasal Cannula 2.0 02/27/17 19:05 60 15 105/67 96 Nasal Cannula 4 02/27/17 18:55 74 17 116/67 94 Nasal Cannula 4 02/27/17 18:45 36.4 63 22 103/59 93 Nasal Cannula 4 02/27/17 18:35 60 21 116/63 94 Nasal Cannula 4 02/27/17 18:25 62 19 130/74 98 Oxymask 10 02/27/17 18:15 68 29 133/77 97 Oxymask 10 02/27/17 18:08 36.4 61 22 124/71 97 Oxymask 10 Lab Results: Results Past 24 Hours Test 02/28/17 07:04 Range/Units White Blood Count 6.34 4.8-10.8 K/uL Red Blood Count 3.32 4.7-6.1 M/uL Hemoglobin 10.9 14.0-18.0 g/dL Hematocrit 33.6 42-52 % Mean Corpuscular Volume 101.2 80-100 fL Mean Corpuscular Hemoglobin 32.8 25-34 pg Mean Corpuscular Hemoglobin Concent 32.4 32-36 g/dl Platelet Count 103 130-400 K/uL Mean Platelet Volume 9.6 7.4-10.4 fL Neutrophils (%) (Auto) 76.6 % Lymphocytes (%) (Auto) 12.8 % Monocytes (%) (Auto) 10.1 % Eosinophils (%) (Auto) 0.3 % Basophils (%) (Auto) 0.2 % Neutrophils # (Auto) 4.86 1.4-6.5 K/uL Lymphocytes # (Auto) 0.81 1.2-3.4 K/uL Monocytes # (Auto) 0.64 0.11-0.59 K/uL Eosinophils # (Auto) 0.02 0-0.5 K/uL Basophils # (Auto) 0.01 0-0.2 K/uL RDW Standard Deviation 47.6 36.4-46.3 fL RDW Coefficient of Variation 12.9 11.5-14.5 % Immature Granulocyte % (Auto) 0.0 % Immature Granulocyte # (Auto) 0.00 0.00-0.02 K/uL Prothrombin Time 13.3 9.0-12.0 SECONDS Prothromb Time International Ratio 1.2 0.9-1.1 Sodium Level 139 136-145 mmol/L Potassium Level 4.0 3.5-5.1 mmol/L Chloride Level 102 98-107 mmol/L Carbon Dioxide Level 36 21-32 mmol/L Anion Gap 1.0 3-11 mmol/L Blood Urea Nitrogen 15 7-18 mg/dl Creatinine 0.86 0.60-1.40 mg/dl Est Creatinine Clear Calc Drug Dose 81.9 ml/min Estimated GFR () 97.6 Estimated GFR (Non- 84.2 BUN/Creatinine Ratio 17.2 10-20 Random Glucose 88 70-99 mg/dl Calcium Level 8.6 8.5-10.1 mg/dl
[2017-02-28] MEDS: SIMVASTATIN 10 MG TAB PO SCH (21:07)
[2017-02-28] MEDS: FINASTERIDE 5 MG TAB PO SCH (21:08)
[2017-03-01] MEDS: LEVOTHYROXINE 75 MCG TAB PO SCH (05:33)
[2017-03-01 06:33] LABS: HEMATOCRIT 30.3 % (42-52)
[2017-03-01 06:38] LABS: INR 1.1 (0.9-1.1); PROTHROMBIN TIME (PATIENT) 11.5 SECONDS (9.0-12.0)
[2017-03-01 06:58] LABS: BUN/CREATININE RATIO 14.7 (10-20); CALCIUM 8.4 mg/dl (8.5-10.1); POTASSIUM 3.9 mmol/L (3.5-5.1)
[2017-03-01 07:05] VITALS: BP 122/77; PULSE 60; TEMP 36.7; O2SAT 95
[2017-03-01 09:50] VITALS: BP 138/79; PULSE 90; TEMP 36.6; O2SAT 94
[2017-03-01] MEDS: CIPROFLOXACIN 500 MG TAB PO SCH ×2 (10:12→20:54)
[2017-03-01] MEDS: ISOSORBIDE MONONITRATE 30 MG TABCR PO SCH (10:12)
[2017-03-01] MEDS: DOCUSATE SODIUM 100 MG CAP PO SCH ×2 (10:13→20:55)
[2017-03-01] MEDS: ASPIRIN 81 MG ECTAB PO SCH (10:13)
[2017-03-01] MEDS: CARVEDILOL 25 MG TAB PO SCH ×2 (10:50→20:55)
[2017-03-01] MEDS: POTASSIUM CHLORIDE 10 MEQ TABCR PO SCH (10:51)
[2017-03-01] MEDS: D5W AND 1/2NSS 1,000 ML IV SCH (14:03)
[2017-03-01 14:04] VITALS: BP 120/69
[2017-03-01 15:12] VITALS: BP 113/65; PULSE 87; TEMP 36.7; O2SAT 91
--- NOTE | 2017-03-01 15:21 | Progress Note ---
Internal Med Progress Note Date of Service: Mar 01, 2017. Provider Documentation: SUBJECTIVE: Seen and examined at bedside Has minimal dysuria On CBI Denies chest pain, SOB Family at bedside No other symptoms OBJECTIVE: Vital Signs-as noted below Physical Exam: General Appearance:Moderately built and nourished, no apparent distress Head: normocephalic, Atraumatic Eyes: normal inspection, EOMI, PERRL Neck: supple, Trachea midline Respiratory/Chest: decreased breath sounds, Few scattered creps Cardiovascular: S1, S2, No murmur Abdomen/GI:Soft, Non tender, Bowel sounds present Extremities/Musculoskelatal:normal inspection, no edema Neurologic/Psych:grossly no focal neurological deficits Skin: normal color, warm Lab data as noted below. ASSESSMENT & PLAN: S/P Cysto, laser lithotripsy and staged removal of multiple bladder stones POD # 3 Continue CBI per Urology Appreciate Urology Dr. Bustamante help Hold coumadin, Fish Oil for now monitor H&H leukocytosis resolved Urine Culture: Enterococcus ([facility] records) Continue Ciprofloxacin Ischemic Cardiomyopathy S/P AICD/Pacer appears euvolemic Hold furosemide for now as relative hypotension EF 15-20% P.Afib rate controlled continue BB hold coumadin for now Monitor INR:1.2 H/O CAD continue ASA, BB, statin BPH continue finasteride, terazosin Hypothyroidism: continue levothyroxine DVT Px SCDs for now Disposition: Per Primary team Vital Signs: Date Time Temp Pulse Resp B/P (MAP) Pulse Ox O2 Delivery O2 Flow Rate FiO2 03/01/17 15:12 36.7 87 18 113/65 (81) 91 Nasal Cannula 3.0 03/01/17 14:04 120/69 (86) 03/01/17 09:50 36.6 90 28 138/79 (98) 94 Nasal Cannula 2.0 03/01/17 07:10 Nasal Cannula 2.0 03/01/17 07:05 36.7 60 16 122/77 (92) 95 Nasal Cannula 2.0 03/01/17 00:10 Nasal Cannula 2.0 02/28/17 23:25 36.8 63 17 138/80 (99) 95 Nasal Cannula 3.0 02/28/17 21:06 63 132/71 (91) Lab Results: Results Past 24 Hours Test 03/01/17 06:07 Range/Units Hemoglobin 9.9 14.0-18.0 g/dL Hematocrit 30.3 42-52 % Prothrombin Time 11.5 9.0-12.0 SECONDS Prothromb Time International Ratio 1.1 0.9-1.1 Sodium Level 140 136-145 mmol/L Potassium Level 3.9 3.5-5.1 mmol/L Chloride Level 102 98-107 mmol/L Carbon Dioxide Level 36 21-32 mmol/L Anion Gap 2.0 3-11 mmol/L Blood Urea Nitrogen 15 7-18 mg/dl Creatinine 1.00 0.60-1.40 mg/dl Est Creatinine Clear Calc Drug Dose 70.4 ml/min Estimated GFR () 84.4 Estimated GFR (Non- 72.8 BUN/Creatinine Ratio 14.7 10-20 Random Glucose 86 70-99 mg/dl Calcium Level 8.4 8.5-10.1 mg/dl
[2017-03-01 20:50] VITALS: BP 134/77; PULSE 63
[2017-03-01] MEDS: SIMVASTATIN 10 MG TAB PO SCH (20:56)
[2017-03-01] MEDS: FINASTERIDE 5 MG TAB PO SCH (20:56)
--- NOTE | 2017-03-01 21:17 | Progress Note ---
Subjective Date of Service: Mar 01, 2017. Subjective Pt evaluation today including: conversation w/ patient, physical exam, chart review, lab review Voiding: phelan catheter in place Problem List Pt feels better today. Failed clamping trial of phelan yesterday. Urine became very red with clots so it was started again. Today the urine has remained pink with occ clots. These have been irrigated out. He reports intermit pressure in the lower abd. This is worse when the phelan isn 't draining well. He continues to be on a slow drip of CBI. Review of Systems Constitutional: No fever, No chills Respiratory: No shortness of breath Cardiac: No chest pain Abdomen: No nausea Male : + problem reported Objective Vital Signs Date Time Temp Pulse Resp B/P (MAP) Pulse Ox O2 Delivery O2 Flow Rate FiO2 03/01/17 20:50 63 134/77 (96) 03/01/17 15:30 Nasal Cannula 2.0 03/01/17 15:12 36.7 87 18 113/65 (81) 91 Nasal Cannula 3.0 03/01/17 14:04 120/69 (86) 03/01/17 09:50 36.6 90 28 138/79 (98) 94 Nasal Cannula 2.0 03/01/17 07:10 Nasal Cannula 2.0 03/01/17 07:05 36.7 60 16 122/77 (92) 95 Nasal Cannula 2.0 03/01/17 00:10 Nasal Cannula 2.0 02/28/17 23:25 36.8 63 17 138/80 (99) 95 Nasal Cannula 3.0 Physical Exam General Appearance: WD/WN Eyes: normal inspection Respiratory/Chest: chest non-tender Cardiovascular: regular rate, rhythm Extremities: non-tender Comments: Phelan in place. [place] colored. Irrigates easily. Small clots/debris removed. Laboratory Results Last 24 Hours Test 03/01/17 06:07 Hemoglobin 9.9 g/dL Hematocrit 30.3 % Prothrombin Time 11.5 SECONDS Prothromb Time International Ratio 1.1 Sodium Level 140 mmol/L Potassium Level 3.9 mmol/L Chloride Level 102 mmol/L Carbon Dioxide Level 36 mmol/L Anion Gap 2.0 mmol/L Blood Urea Nitrogen 15 mg/dl Creatinine 1.00 mg/dl Est Creatinine Clear Calc Drug Dose 70.4 ml/min Estimated GFR () 84.4 Estimated GFR (Non- 72.8 BUN/Creatinine Ratio 14.7 Random Glucose 86 mg/dl Calcium Level 8.4 mg/dl Assessment and Plan (1) Gross hematuria (2) Bladder calculus Phelan catheter remains in place. The urine is still pink tinged with slow drip. He is occ having issues with clots. Would rec continued CBI. It is improving but slowly. May consider re-trial of clamping phelan tomorrow to see if the urine stay clear. Rec B&O suppository for lower abd pressure. Nursing to continue to irrigate PRN. Continue to trend labs. Hold anticoags for now.
[2017-03-01] MEDS: BELLADONNA/OPIUM SUPP 60 MG SUPP PR PRN (22:23)
[2017-03-01 22:48] VITALS: BP 127/69; PULSE 60; TEMP 36.8; O2SAT 92
[2017-03-02] VITALS (8 sets, daily range): BP systolic 96–117; BP diastolic 51–79; PULSE 58–71; TEMP 36.9–38.3; O2SAT 90–95
[2017-03-02 06:12] LABS: HEMATOCRIT 30.8 % (42-52)
[2017-03-02] MEDS: BELLADONNA/OPIUM SUPP 60 MG SUPP PR PRN ×2 (06:18→18:46)
[2017-03-02] MEDS: LEVOTHYROXINE 75 MCG TAB PO SCH (06:18)
[2017-03-02 06:21] LABS: INR 1.1 (0.9-1.1); PROTHROMBIN TIME (PATIENT) 11.4 SECONDS (9.0-12.0)
[2017-03-02 07:03] LABS: CALCIUM 8.6 mg/dl (8.5-10.1); CREATININE 0.89 mg/dl (0.60-1.40); POTASSIUM 3.9 mmol/L (3.5-5.1)
[2017-03-02] MEDS: DOCUSATE SODIUM 100 MG CAP PO SCH ×2 (08:25→20:52)
[2017-03-02] MEDS: ASPIRIN 81 MG ECTAB PO SCH (08:25)
[2017-03-02] MEDS: POTASSIUM CHLORIDE 10 MEQ TABCR PO SCH (08:25)
[2017-03-02] MEDS: CIPROFLOXACIN 500 MG TAB PO SCH ×2 (08:25→20:53)
[2017-03-02] MEDS: CARVEDILOL 25 MG TAB PO SCH ×2 (08:26→20:54)
[2017-03-02] MEDS: ISOSORBIDE MONONITRATE 30 MG TABCR PO SCH (08:26)
--- NOTE | 2017-03-02 12:23 | Progress Note ---
Internal Med Progress Note Date of Service: Mar 02, 2017. Provider Documentation: SUBJECTIVE: Seen and examined at bedside Reports bladder pressure like sensation On CBI Denies chest pain, SOB, dizziness Family at bedside No other symptoms OBJECTIVE: Vital Signs-as noted below Physical Exam: General Appearance:Moderately built and nourished, no apparent distress Head: normocephalic, Atraumatic Eyes: normal inspection, EOMI, PERRL Neck: supple, Trachea midline Respiratory/Chest: decreased breath sounds, Few scattered creps Cardiovascular: S1, S2, No murmur Abdomen/GI:Soft, Non tender, Bowel sounds present Extremities/Musculoskelatal:normal inspection, no edema Neurologic/Psych:grossly no focal neurological deficits Skin: normal color, warm Lab data as noted below. ASSESSMENT & PLAN: S/P Cysto, laser lithotripsy and staged removal of multiple bladder stones POD # 4 Continue CBI per Urology Appreciate Urology Dr. Bustamante help Hold coumadin, Fish Oil for now monitor H&H leukocytosis resolved Urine Culture: Enterococcus ([facility] records) Continue Ciprofloxacin Failed clamping trial yesterday Hb stable Ischemic Cardiomyopathy S/P AICD/Pacer Chronic Oxygen dependency: on 2L at baseline appears euvolemic Hold furosemide for now as relative hypotension EF 15-20% P.Afib rate controlled continue BB hold coumadin for now INR:1.2 H/O CAD continue ASA, BB, statin BPH continue finasteride, terazosin Hypothyroidism: continue levothyroxine DVT Px SCDs for now Disposition: Per Primary team Vital Signs: Date Time Temp Pulse Resp B/P (MAP) Pulse Ox O2 Delivery O2 Flow Rate FiO2 03/02/17 07:45 Nasal Cannula 2.0 03/02/17 07:29 36.9 58 18 96/51 (66) 95 Nasal Cannula 2.0 03/02/17 00:00 Nasal Cannula 2.0 03/01/17 22:48 36.8 60 17 127/69 (88) 92 Nasal Cannula 2.0 03/01/17 20:50 63 134/77 (96) 03/01/17 15:30 Nasal Cannula 2.0 03/01/17 15:12 36.7 87 18 113/65 (81) 91 Nasal Cannula 3.0 03/01/17 14:04 120/69 (86) Lab Results: Results Past 24 Hours Test 03/02/17 05:49 Range/Units Hemoglobin 9.9 14.0-18.0 g/dL Hematocrit 30.8 42-52 % Prothrombin Time 11.4 9.0-12.0 SECONDS Prothromb Time International Ratio 1.1 0.9-1.1 Sodium Level 139 136-145 mmol/L Potassium Level 3.9 3.5-5.1 mmol/L Chloride Level 102 98-107 mmol/L Carbon Dioxide Level 36 21-32 mmol/L Anion Gap 1.0 3-11 mmol/L Blood Urea Nitrogen 14 7-18 mg/dl Creatinine 0.89 0.60-1.40 mg/dl Est Creatinine Clear Calc Drug Dose 79.1 ml/min Estimated GFR () 96.3 Estimated GFR (Non- 83.1 BUN/Creatinine Ratio 16.0 10-20 Random Glucose 101 70-99 mg/dl Calcium Level 8.6 8.5-10.1 mg/dl
[2017-03-02] MEDS: D5W AND 1/2NSS 1,000 ML IV SCH (15:35)
--- NOTE | 2017-03-02 19:59 | Progress Note ---
Subjective Date of Service: Mar 02, 2017. Subjective Pt evaluation today including: conversation w/ patient, conversation w/ family , chart review, lab review Voiding: phelan catheter in place Problem List Phelan catheter drainage continues to be light pink. Nursing staff not needing to irrigate as much. Rate was slowed early today but it got darker red and then was increased again. Less pressure in abd with ROSARIO suppository. Tolerating diet. Wonders if he can shower. Review of Systems Constitutional: No fever, No chills Respiratory: No cough, No shortness of breath Cardiac: No chest pain Abdomen: + pain Male : + hematuria Endo: No fatigue Skin: No rash All Other Systems: Reviewed and Negative Objective Vital Signs Date Time Temp Pulse Resp B/P (MAP) Pulse Ox O2 Delivery O2 Flow Rate FiO2 03/02/17 16:00 Nasal Cannula 2.0 03/02/17 15:00 38.1 71 20 104/63 (77) 90 Nasal Cannula 2.0 03/02/17 07:45 Nasal Cannula 2.0 03/02/17 07:29 36.9 58 18 96/51 (66) 95 Nasal Cannula 2.0 03/02/17 00:00 Nasal Cannula 2.0 03/01/17 22:48 36.8 60 17 127/69 (88) 92 Nasal Cannula 2.0 03/01/17 20:50 63 134/77 (96) Physical Exam General Appearance: WD/WN Eyes: normal inspection Neck: supple Respiratory/Chest: lungs clear Cardiovascular: regular rate, rhythm Neurologic/Psychiatric: oriented x 3 Comments: Urine light pink. No clots. Slow CBI drip. No scrotal edema. Laboratory Results Last 24 Hours Test 03/02/17 05:49 Hemoglobin 9.9 g/dL Hematocrit 30.8 % Prothrombin Time 11.4 SECONDS Prothromb Time International Ratio 1.1 Sodium Level 139 mmol/L Potassium Level 3.9 mmol/L Chloride Level 102 mmol/L Carbon Dioxide Level 36 mmol/L Anion Gap 1.0 mmol/L Blood Urea Nitrogen 14 mg/dl Creatinine 0.89 mg/dl Est Creatinine Clear Calc Drug Dose 79.1 ml/min Estimated GFR () 96.3 Estimated GFR (Non- 83.1 BUN/Creatinine Ratio 16.0 Random Glucose 101 mg/dl Calcium Level 8.6 mg/dl Assessment and Plan (1) Gross hematuria (2) Bladder calculus Phelan catheter remains in place. The urine is still pink tinged with slow drip. He seems to be slowly improving. Plan to clamp phelan tomorrow at 8am. If reasonably clear at Noon will consider phelan removal and voiding trial OK to shower once phelan is out. Encourage ambulation
[2017-03-02] MEDS: FINASTERIDE 5 MG TAB PO SCH (20:55)
[2017-03-02] MEDS: SIMVASTATIN 10 MG TAB PO SCH (20:55)
[2017-03-03] VITALS (9 sets, daily range): BP systolic 103–129; BP diastolic 55–80; PULSE 60–74; TEMP 36.8–37.5; O2SAT 94–96
[2017-03-03] MEDS: LEVOTHYROXINE 75 MCG TAB PO SCH (05:35)
[2017-03-03 06:12] LABS: HEMATOCRIT 28.9 % (42-52); MEAN CELL VOLUME 97.6 fL (80-100); MEAN CORPUSCULAR HEMOGLOBIN 33.1 pg (25-34); MEAN CORPUSCULAR HGB CONC 33.9 g/dl (32-36); MEAN PLATELET VOLUME 9.5 fL (7.4-10.4); PLATELET COUNT 101 K/uL (130-400); RED BLOOD COUNT 2.96 M/uL (4.7-6.1)
[2017-03-03] MEDS: CARVEDILOL 25 MG TAB PO SCH ×2 (08:47→22:45)
[2017-03-03] MEDS: ISOSORBIDE MONONITRATE 30 MG TABCR PO SCH (08:47)
[2017-03-03] MEDS: POTASSIUM CHLORIDE 10 MEQ TABCR PO SCH (08:47)
[2017-03-03] MEDS: ASPIRIN 81 MG ECTAB PO SCH (08:47)
[2017-03-03] MEDS: CIPROFLOXACIN 500 MG TAB PO SCH ×2 (08:48→19:21)
[2017-03-03] MEDS: DOCUSATE SODIUM 100 MG CAP PO SCH ×2 (08:49→11:14)
[2017-03-03] MEDS: D5W AND 1/2NSS 1,000 ML IV SCH (13:17)
--- NOTE | 2017-03-03 13:33 | Progress Note ---
Subjective Date of Service: Mar 03, 2017. Subjective Pt evaluation today including: conversation w/ patient, physical exam, conversation w/ regional sales consultant Voiding: phelan catheter in place cathter clogging frequently. He is currently in painful clot retention, He has no chest pain. he is tired. His cbi has been off for 4 hours. He finished lunch at 12:30pm. Review of Systems Constitutional: + fatigue, No fever, No chills, No sweats Respiratory: No sputum, No shortness of breath Cardiac: No chest pain Abdomen: No nausea, No vomiting Male : + hematuria Objective Vital Signs Date Time Temp Pulse Resp B/P (MAP) Pulse Ox O2 Delivery O2 Flow Rate FiO2 03/03/17 13:19 60 103/55 (71) 03/03/17 07:48 Nasal Cannula 2.0 03/03/17 07:05 37.3 74 19 129/76 (93) 96 Nasal Cannula 2.0 03/02/17 23:15 Nasal Cannula 2.0 03/02/17 23:13 37.2 60 16 113/70 (84) 94 Nasal Cannula 2.0 03/02/17 21:33 37.3 03/02/17 21:27 38.3 03/02/17 20:48 68 117/79 (92) 93 Nasal Cannula 2.0 03/02/17 20:36 67 113/59 (77) 92 Nasal Cannula 2.0 03/02/17 19:00 95 Nasal Cannula 2.0 03/02/17 16:00 Nasal Cannula 2.0 03/02/17 15:00 38.1 71 20 104/63 (77) 90 Nasal Cannula 2.0 Physical Exam General Appearance: WD/WN, no apparent distress, + thin Respiratory/Chest: no respiratory distress, no accessory muscle use Extremities: non-tender, normal inspection, no pedal edema, no calf tenderness Neurologic/Psychiatric: alert, normal mood/affect, oriented x 3 Laboratory Results Last 24 Hours Test 03/03/17 06:00 White Blood Count 9.90 K/uL Red Blood Count 2.96 M/uL Hemoglobin 9.8 g/dL Hematocrit 28.9 % Mean Corpuscular Volume 97.6 fL Mean Corpuscular Hemoglobin 33.1 pg Mean Corpuscular Hemoglobin Concent 33.9 g/dl RDW Standard Deviation 45.6 fL RDW Coefficient of Variation 12.8 % Platelet Count 101 K/uL Mean Platelet Volume 9.5 fL Assessment and Plan Post op day number 4 from staged removal of multiple bladder stones Has enterococcus on urine culture from Friday02/25/17 continue cipro. failed trial with holding cbi is in painful clot retention. Attempts at bedside irrigation removed some fluid but could not get any clot out at all. Will have to go to OR in 8 hours and remove clots and replace catheter. I suspect his high venous pressures are prolonging his bleeding. This catheter is clogged and has to be replaced and the clot removed. I explained surgery and slow progress to patient and his and he signed consent.
--- NOTE | 2017-03-03 14:01 | Progress Note ---
Internal Med Progress Note Date of Service: Mar 03, 2017. Provider Documentation: SUBJECTIVE: Seen and examined at bedside Persistent bladder pressure like sensation On CBI, still has hematuria Denies chest pain, SOB, dizziness Planned to be taken to OR tonight per Urology OBJECTIVE: Vital Signs-as noted below Physical Exam: General Appearance:Moderately built and nourished, no apparent distress Head: normocephalic, Atraumatic Eyes: normal inspection, EOMI, PERRL Neck: supple, Trachea midline Respiratory/Chest: decreased breath sounds, CTA Cardiovascular: S1, S2, No murmur Abdomen/GI:Soft, Non tender, Bowel sounds present Extremities/Musculoskelatal:normal inspection, no edema Neurologic/Psych:grossly no focal neurological deficits Skin: normal color, warm Lab data as noted below. ASSESSMENT & PLAN: S/P Cysto, laser lithotripsy and staged removal of multiple bladder stones POD # 5 Continue CBI per Urology Appreciate Urology Dr. Bustamante help Hold coumadin, Fish Oil for now monitor H&H leukocytosis resolved Urine Culture: Enterococcus ([facility] records) Continue Ciprofloxacin Hb stable Failed trial holding CBI Still has hematuria, catheter is clogged. Planned for OR tonight Ischemic Cardiomyopathy S/P AICD/Pacer Chronic Oxygen dependency: on 2L at baseline appears euvolemic Hold furosemide for now as relative hypotension EF 15-20% P.Afib rate controlled continue BB hold coumadin for now INR:1.1 H/O CAD continue ASA, BB, statin HTN: Low today continue coreg Hold Lasix Decrease Hydralazine to 25 to 12.5mg TID Hold for SBP less than 100 BPH continue finasteride, terazosin Hypothyroidism: continue levothyroxine DVT Px SCDs for now Disposition: Per Primary team Vital Signs: Date Time Temp Pulse Resp B/P (MAP) Pulse Ox O2 Delivery O2 Flow Rate FiO2 03/03/17 13:19 60 103/55 (71) 03/03/17 07:48 Nasal Cannula 2.0 03/03/17 07:05 37.3 74 19 129/76 (93) 96 Nasal Cannula 2.0 03/02/17 23:15 Nasal Cannula 2.0 03/02/17 23:13 37.2 60 16 113/70 (84) 94 Nasal Cannula 2.0 03/02/17 21:33 37.3 03/02/17 21:27 38.3 03/02/17 20:48 68 117/79 (92) 93 Nasal Cannula 2.0 03/02/17 20:36 67 113/59 (77) 92 Nasal Cannula 2.0 03/02/17 19:00 95 Nasal Cannula 2.0 03/02/17 16:00 Nasal Cannula 2.0 03/02/17 15:00 38.1 71 20 104/63 (77) 90 Nasal Cannula 2.0 Lab Results: Results Past 24 Hours Test 03/03/17 06:00 Range/Units White Blood Count 9.90 4.8-10.8 K/uL Red Blood Count 2.96 4.7-6.1 M/uL Hemoglobin 9.8 14.0-18.0 g/dL Hematocrit 28.9 42-52 % Mean Corpuscular Volume 97.6 80-100 fL Mean Corpuscular Hemoglobin 33.1 25-34 pg Mean Corpuscular Hemoglobin Concent 33.9 32-36 g/dl RDW Standard Deviation 45.6 36.4-46.3 fL RDW Coefficient of Variation 12.8 11.5-14.5 % Platelet Count 101 130-400 K/uL Mean Platelet Volume 9.5 7.4-10.4 fL
[2017-03-03] MEDS ORDERED: ONDANSETRON INJ 2 MG/ML 2 ML VIAL IV PRN (20:00)
[2017-03-03] MEDS ORDERED: ATROPINE SULFATE 0.1 MG/ML 5ML SYR IV PRN (20:00)
[2017-03-03] MEDS ORDERED: EpHEDrine SULFATE INJ 50 MG/ML AMP IV PRN (20:00)
[2017-03-03] MEDS ORDERED: FENTANYL CITRATE INJ 50 MCG/1 ML 2 ML VIAL IV PRN (20:00)
[2017-03-03] MEDS ORDERED: FENTANYL CITRATE INJ 50 MCG/1 ML 2 ML VIAL ONE (20:14)
[2017-03-03] MEDS ORDERED: BELLADONNA/OPIUM SUPP 60 MG SUPP PR ONE (21:16)
[2017-03-03] MEDS ORDERED: LIDOCAINE HCL 2% 2 ML VIAL (20MG/ML) ONE (21:18)
[2017-03-03] MEDS ORDERED: PROPOFOL IV EMULSION 10 MG/ML 20 ML VIAL IV ONE (21:18)
[2017-03-03] MEDS: BELLADONNA/OPIUM SUPP 60 MG SUPP PR PRN (21:20)
--- NOTE | 2017-03-03 21:39 | [facility] Operative Report ---
Operative Report Operative Date Mar 03, 2017. Pre-Operative Diagnosis Clot retention Post-Operative Diagnosis same as preop Procedure(s) Performed Cystoscopy, Clot evacuation, cautery of prostate Surgeon Dr. Lilian Bustamante Clerk Secretary Surgeon(s) none Estimated Blood Loss 50mL Findings thick clot in bladder, active bleeding from veins of middle lobe Fluids 200mL Specimens none, Per Surgeon Drains [address] phelan Anesthesia iv sedation Complication(s) None Disposition Recovery Room / PACU Indications clot retention Description of Procedure Patient was given iv sedation and placed in lithotomy position. His genitals were prepped and draped in sterile fashion. Time out held with team. I placed a 22 fr rigid cystoscope to bladder. The urethra is unremarkable. The prostate is large and is bleeding briskly. There is a large amount of thick clot in the bladder. I evacuated it with the adapter and Samantha syringe. It is about a cup or more. The UOs are not seen. Once I removed clot I used bugbee and sorbitol to fulgurate the brisk bleeding fromt he middle lobe. I left bladder full and placed a [address] phelan and inflated balloon with 10mL of water. I started 3 way CBI with saline. I placed a Band O suppository for post-op pain. He transferred to recovery under my escort, in stable condition. Plan: observe in house for cbi due to brisk hematuria consult hospitalist service Pyridium for dysuria x 3 days oral pain meds as needed hopefully wean cbi and remove phelan tomorrow. I attest to the content of the Intraoperative Record and any orders documented therein. Any exceptions are noted below.
--- NOTE | 2017-03-03 21:55 | Anesthesiology Progress Note ---
Anesthesia Post Op Note Date & Time Mar 03, 2017 at 21:55 Vital Signs Pain Intensity: 0 Vital Signs Past 12 Hours Date Time Temp Pulse Resp B/P (MAP) Pulse Ox O2 Delivery O2 Flow Rate FiO2 03/03/17 21:45 36.6 68 16 117/55 93 Nasal Cannula 2 03/03/17 21:35 75 16 112/84 94 Nasal Cannula 2 03/03/17 21:27 36.7 80 24 95/52 95 Nasal Cannula 2 03/03/17 16:00 95 Room Air 03/03/17 14:58 37.5 60 18 119/69 (86) 95 Nasal Cannula 2.0 03/03/17 14:11 104/58 (73) 03/03/17 13:19 60 103/55 (71) Notes Mental Status: alert / awake / arousable, participated in evaluation Pt Amnestic to Procedure: Yes Nausea / Vomiting: adequately controlled Pain: adequately controlled Airway Patency, RR, SpO2: stable & adequate BP & HR: stable & adequate Hydration State: stable & adequate Anesthetic Complications: no major complications apparent
[2017-03-03] MEDS: SIMVASTATIN 10 MG TAB PO SCH (22:43)
[2017-03-03] MEDS: FINASTERIDE 5 MG TAB PO SCH (22:44)
[2017-03-04] VITALS (11 sets, daily range): BP systolic 95–129; BP diastolic 59–78; PULSE 62–83; TEMP 36.6–37.4; O2SAT 91–96
[2017-03-04] MEDS: LEVOTHYROXINE 75 MCG TAB PO SCH (05:59)
[2017-03-04 06:25] LABS: HEMATOCRIT 26.1 % (42-52)
[2017-03-04 06:42] LABS: INR 1.1 (0.9-1.1); PROTHROMBIN TIME (PATIENT) 11.7 SECONDS (9.0-12.0)
[2017-03-04 06:53] LABS: BUN/CREATININE RATIO 16.3 (10-20); CALCIUM 8.3 mg/dl (8.5-10.1); CREATININE 0.89 mg/dl (0.60-1.40); POTASSIUM 3.8 mmol/L (3.5-5.1)
[2017-03-04] MEDS: CIPROFLOXACIN 500 MG TAB PO SCH ×2 (08:44→19:54)
[2017-03-04] MEDS: DOCUSATE SODIUM 100 MG CAP PO SCH ×2 (08:44→21:18)
[2017-03-04] MEDS: ISOSORBIDE MONONITRATE 30 MG TABCR PO SCH (08:44)
[2017-03-04] MEDS: CARVEDILOL 25 MG TAB PO SCH ×2 (08:45→21:19)
[2017-03-04] MEDS: POTASSIUM CHLORIDE 10 MEQ TABCR PO SCH (08:46)
--- NOTE | 2017-03-04 15:47 | Progress Note ---
Internal Med Progress Note Date of Service: Mar 04, 2017. Provider Documentation: SUBJECTIVE: patient s/p clot evacuation from bladder by urology on 03/03/2017, continues to be on phelan, no acute distress, able to speak in full sentences OBJECTIVE: Exam: General-NAD, speaking in full sentences, on nasal cannula Eyes- EOMI, no jaundice ENT-nontender, no oral or nasal exudates Neck- nontender, no JVD Lungs- no crackles, no wheezing on lung auscultation. no use of acessory muscles Heart- regular rate Abdomen- soft, nontender to palpation Extremities- no edema of extremities Neuro- AO x 3 ASSESSMENT & PLAN: ASSESSMENT & PLAN: Hematuria with history of Urine Culture: Enterococcus (Epic records) -continue Ciprofloxacin 500 mg q12 hours started from 02/26/2017 -s/p Cysto, laser lithotripsy and staged removal of multiple bladder stones -s/p CBI therapy, contiue per urology -s/p clot evacuation from bladder on 03/03/17 with Hgb 9.8 to 8.6 -Hold coumadin, Fish Oil for now Ischemic Cardiomyopathy S/P AICD/Pacer, EF 15-20% -Chronic Oxygen dependency: on 2L at baseline -appears euvolemic, hold furosemide for now as relative hypotension P.Afib -rate controlled -continue carvedilol 25 mg BID -hold coumadin for now history of CAD -can restart aspirin 81 mg daily -continue carvedilol 25 mg BID, statin, isosorbide 30 mg HTN: -continue carvedilol 25 mg BID -Hold Lasix -continue Hydralazine to 25 to 12.5mg TID -Hold for SBP less than 100 BPH -continue finasteride, terazosin Hypothyroidism: -continue levothyroxine DVT Px -SCDs for now Disposition: Per Primary team Vital Signs: Date Time Temp Pulse Resp B/P (MAP) Pulse Ox O2 Delivery O2 Flow Rate FiO2 03/04/17 15:14 37.4 83 18 98/61 (73) 96 Room Air 03/04/17 14:05 96/59 (71) 03/04/17 11:25 36.7 73 16 117/61 (79) 91 Nasal Cannula 2.0 03/04/17 10:27 99/61 (74) 03/04/17 07:50 Nasal Cannula 2.0 03/04/17 07:26 36.7 70 16 129/78 (95) 96 Nasal Cannula 2.0 03/04/17 03:48 36.8 62 18 109/62 (78) 96 Nasal Cannula 2.0 03/04/17 01:15 36.7 68 18 110/63 (79) 92 Nasal Cannula 2.0 03/04/17 00:58 Nasal Cannula 2.0 03/04/17 00:13 36.6 67 16 116/66 (83) 91 Nasal Cannula 2.0 03/03/17 23:15 37.0 70 16 118/66 (83) 94 Nasal Cannula 2.0 03/03/17 22:45 36.8 69 18 113/80 (91) 96 Nasal Cannula 2.0 03/03/17 22:35 37.1 70 16 116/65 (82) 96 Nasal Cannula 2.5 03/03/17 22:15 37.1 70 16 116/65 (82) 96 Nasal Cannula 2.5 03/03/17 22:15 96 Nasal Cannula 2.5 03/03/17 22:15 96 Nasal Cannula 2.5 03/03/17 22:05 73 16 112/51 95 Nasal Cannula 2 03/03/17 21:55 70 16 116/58 97 Nasal Cannula 2 03/03/17 21:45 36.6 68 16 117/55 93 Nasal Cannula 2 03/03/17 21:35 75 16 112/84 94 Nasal Cannula 2 03/03/17 21:27 36.7 80 24 95/52 95 Nasal Cannula 2 03/03/17 16:00 95 Room Air Lab Results: Results Past 24 Hours Test 03/04/17 06:03 Range/Units Hemoglobin 8.6 14.0-18.0 g/dL Hematocrit 26.1 42-52 % Prothrombin Time 11.7 9.0-12.0 SECONDS Prothromb Time International Ratio 1.1 0.9-1.1 Sodium Level 139 136-145 mmol/L Potassium Level 3.8 3.5-5.1 mmol/L Chloride Level 104 98-107 mmol/L Carbon Dioxide Level 32 21-32 mmol/L Anion Gap 3.0 3-11 mmol/L Blood Urea Nitrogen 15 7-18 mg/dl Creatinine 0.89 0.60-1.40 mg/dl Est Creatinine Clear Calc Drug Dose 79.1 ml/min Estimated GFR () 96.3 Estimated GFR (Non- 83.1 BUN/Creatinine Ratio 16.3 10-20 Random Glucose 85 70-99 mg/dl Calcium Level 8.3 8.5-10.1 mg/dl
[2017-03-04] MEDS ORDERED: FUROSEMIDE 40 MG TAB PO ONE (19:15)
--- NOTE | 2017-03-04 19:15 | Progress Note ---
Subjective Date of Service: Mar 04, 2017. Subjective Pt evaluation today including: conversation w/ patient, physical exam Voiding: phelan catheter in place patient feels well. He had the CBI stopped briefly this am and it got pink so it was restarted. Then this evening we successfully held the cbi for 20 minutes and again for 40 minutes. I removed his Phelan at 7:12pm. Review of Systems Constitutional: No fever, No chills, No sweats Respiratory: No cough, No shortness of breath Cardiac: No chest pain, No palpitations Male : + hematuria Endo: + fatigue, No excessive thirst, No excessive urination Objective Vital Signs Date Time Temp Pulse Resp B/P (MAP) Pulse Ox O2 Delivery O2 Flow Rate FiO2 03/04/17 15:20 96 Nasal Cannula 2.0 03/04/17 15:14 37.4 83 18 98/61 (73) 96 Room Air 03/04/17 14:05 96/59 (71) 03/04/17 11:25 36.7 73 16 117/61 (79) 91 Nasal Cannula 2.0 03/04/17 10:27 99/61 (74) 03/04/17 07:50 Nasal Cannula 2.0 03/04/17 07:26 36.7 70 16 129/78 (95) 96 Nasal Cannula 2.0 03/04/17 03:48 36.8 62 18 109/62 (78) 96 Nasal Cannula 2.0 03/04/17 01:15 36.7 68 18 110/63 (79) 92 Nasal Cannula 2.0 03/04/17 00:58 Nasal Cannula 2.0 03/04/17 00:13 36.6 67 16 116/66 (83) 91 Nasal Cannula 2.0 03/03/17 23:15 37.0 70 16 118/66 (83) 94 Nasal Cannula 2.0 03/03/17 22:45 36.8 69 18 113/80 (91) 96 Nasal Cannula 2.0 03/03/17 22:35 37.1 70 16 116/65 (82) 96 Nasal Cannula 2.5 03/03/17 22:15 37.1 70 16 116/65 (82) 96 Nasal Cannula 2.5 03/03/17 22:15 96 Nasal Cannula 2.5 03/03/17 22:15 96 Nasal Cannula 2.5 03/03/17 22:05 73 16 112/51 95 Nasal Cannula 2 03/03/17 21:55 70 16 116/58 97 Nasal Cannula 2 03/03/17 21:45 36.6 68 16 117/55 93 Nasal Cannula 2 03/03/17 21:35 75 16 112/84 94 Nasal Cannula 2 03/03/17 21:27 36.7 80 24 95/52 95 Nasal Cannula 2 Physical Exam General Appearance: WD/WN, no apparent distress Eyes: normal inspection Neck: no adenopathy, no JVD Respiratory/Chest: no respiratory distress, no accessory muscle use Neurologic/Psychiatric: alert, normal mood/affect, oriented x 3 Skin: normal color, warm/dry, no rash Laboratory Results Last 24 Hours Test 03/04/17 06:03 Hemoglobin 8.6 g/dL Hematocrit 26.1 % Prothrombin Time 11.7 SECONDS Prothromb Time International Ratio 1.1 Sodium Level 139 mmol/L Potassium Level 3.8 mmol/L Chloride Level 104 mmol/L Carbon Dioxide Level 32 mmol/L Anion Gap 3.0 mmol/L Blood Urea Nitrogen 15 mg/dl Creatinine 0.89 mg/dl Est Creatinine Clear Calc Drug Dose 79.1 ml/min Estimated GFR () 96.3 Estimated GFR (Non- 83.1 BUN/Creatinine Ratio 16.3 Random Glucose 85 mg/dl Calcium Level 8.3 mg/dl Assessment and Plan Post op day number 5 from staged removal of multiple bladder stones POD #1 s/p removal of bladder clots and fulguration of middle lobe of prostate. Has enterococcus on urine culture from Friday02/25/17 continue cipro. thru tomorrow successfully held CBI and removed phelan plan 40mg lasix now and extra PO fluids to encourage brisk urine output to naturally rinse him overnight. If stays open overnight will discharge in am.
[2017-03-04] MEDS: FINASTERIDE 5 MG TAB PO SCH (21:18)
[2017-03-04] MEDS: SIMVASTATIN 10 MG TAB PO SCH (21:18)
[2017-03-05] MEDS ORDERED: LIDOCAINE HCL 2% JELLY 30 ML TUBE EXT ONE (04:07)
[2017-03-05] MEDS ORDERED: NURSING DECISION MEDICATION ORDER SCH (04:15)
[2017-03-05] MEDS ORDERED: LIDOCAINE HCL 2% JELLY 30 ML TUBE EXT PRN (04:30)
[2017-03-05] MEDS: LEVOTHYROXINE 75 MCG TAB PO SCH (06:01)
[2017-03-05 07:30] VITALS: BP 124/71; PULSE 64; TEMP 36.2; O2SAT 98
[2017-03-05] MEDS: ISOSORBIDE MONONITRATE 30 MG TABCR PO SCH (08:36)
[2017-03-05] MEDS: CIPROFLOXACIN 500 MG TAB PO SCH (08:37)
[2017-03-05] MEDS: CARVEDILOL 25 MG TAB PO SCH (08:37)
[2017-03-05] MEDS: POTASSIUM CHLORIDE 10 MEQ TABCR PO SCH (08:37)
[2017-03-05] MEDS: DOCUSATE SODIUM 100 MG CAP PO SCH (08:38)
[2017-03-05] MEDS ORDERED: ASPIRIN 81 MG CHEW PO SCH (09:00)
--- NOTE | 2017-03-05 10:17 | Progress Note ---
Subjective Date of Service: Mar 05, 2017. Subjective Pt evaluation today including: conversation w/ patient, physical exam, lab review Voiding: phelan catheter in place Patient had successful wean off cbi and phelan was removed at 7pm. He could not void and had phelan replaced this am. He is not very bloody this am. Review of Systems Constitutional: + fatigue, No fever, No chills Respiratory: No cough, No shortness of breath Male : + hematuria Endo: + fatigue Objective Vital Signs Date Time Temp Pulse Resp B/P (MAP) Pulse Ox O2 Delivery O2 Flow Rate FiO2 03/05/17 07:35 Nasal Cannula 2.0 03/05/17 07:30 36.2 64 16 124/71 (88) 98 Nasal Cannula 2.0 03/04/17 23:25 Nasal Cannula 2.0 03/04/17 22:50 37.3 66 17 95/61 (72) 95 Nasal Cannula 2.0 03/04/17 21:17 83 118/63 (81) 03/04/17 15:20 96 Nasal Cannula 2.0 03/04/17 15:14 37.4 83 18 98/61 (73) 96 Room Air 03/04/17 14:05 96/59 (71) 03/04/17 11:25 36.7 73 16 117/61 (79) 91 Nasal Cannula 2.0 03/04/17 10:27 99/61 (74) Physical Exam General Appearance: WD/WN, no apparent distress, + thin Eyes: normal inspection Neck: no adenopathy Respiratory/Chest: no respiratory distress Extremities: non-tender, normal inspection, no pedal edema Neurologic/Psychiatric: alert, normal mood/affect, oriented x 3, + pertinent finding (tired) Comments: phelan in place with mostly yellow some pink. Assessment and Plan Post op day number 7 from staged removal of multiple bladder stones POD #2 s/p removal of bladder clots and fulguration of middle lobe of prostate. Has enterococcus on urine culture from Friday02/25/17 continue cipro. thru tomorrow successfully held CBI and removed phelan, then failed void trial now has 18 fr coude phelan in place. will discharge this am. with phelan void trial at home tomorrow. return to clinic if cant void by noon.
--- NOTE | 2017-03-05 10:21 | Discharge Instructions ---
Discharge Instructions Date of Service Mar 05, 2017. Admission Reason for Admission: bladder stones with uti Discharge Discharge Diagnosis / Problem: bladder stones, uti, gross hematuria with clot retention Discharge Goals Goal(s): Improve disease control Activity Recommendations Activity Limitations: as noted below Lifting Limitations: no more than 25 pounds Exercise/Sports Limitations: none Shower/Bathe: no limitations Driving or Machine Use: resume 1 day after discharge . Instructions / Follow-Up Instructions / Follow-Up finish your prescription of cipro. hold coumadin until the catheter is out and you are urinating on your own. hold fish oil until catheter is out and you are voiding on your own. Current Hospital Diet Hospital Diet(s): AHA Diet (Heart Healthy) Discharge Diet Recommended Diet: AHA Diet (Heart Healthy) Fluid Restriction: None Procedures Procedures Performed: Cystoscopy, laser and removal of bladder stones, Clot evacuation, cautery of prostate Pending Studies Studies pending at discharge: no Medical Emergencies . Who to Call and When: Medical Emergencies: If at any time you feel your situation is an emergency, please call 911 immediately. . Non-Emergent Contact Non-Emergency issues call your: Urologist ([phone]) Call Non-Emergent contact if: temperature is above [phone] . Past History Medical & Surgical History: (1) Bladder calculus (2) Gross hematuria (3) CAD (coronary artery disease) (4) Ischemic cardiomyopathy (5) Hypothyroidism (6) BPH (benign prostatic hypertrophy) (7) Paroxysmal atrial fibrillation (8) Pacemaker . "Provider Documentation" section prepared by Lilian Bustamante. . VTE Core Measure Inpt VTE Proph given/why not?: Warfarin (Coumadin), SCD's
[2017-03-05 10:25] VITALS: BP 124/71; PULSE 64; TEMP 36.2; O2SAT 98
--- NOTE | 2017-03-05 10:30 | Discharge Summary ---
Discharge Summary Date of Service Mar 05, 2017. Discharge Summary Admission Date: Mar 04, 2017 at 12:03 Discharge Date: Mar 05, 2017 Discharge Disposition: Home Principal Diagnosis: bladder stones Secondary Diagnoses/Problems: uti gross hematuria clot retention Procedures: cysto with laser lithotripsy and removal of large bladder stones cysto and laser lithotripsy and removal of large bladder stones cysto, clot evacuation and fulguration of prostate Consultations: internal medicine hospitalist service Medication Reconciliation Continued Medications: Aspirin (Aspirin Chewable) 81 Mg Chew 81 MG PO QAM Carvedilol (Coreg *) 25 Mg Tab 25 MG PO BID, 0 Refills Finasteride (Proscar) 5 Mg Tab 5 MG PO QPM, 0 Refills Furosemide (Lasix) 40 Mg Tab 40 MG PO QAM, TAB Hydralazine HCl (Hydralazine HCl) 25 Mg Tab 25 MG PO TID Isosorbide Mononitrate Ext Rel (Imdur Ext Rel) 30 Mg Ertab 1 TAB PO QAM for 30 Days, #30 TAB 5 Refills Levothyroxine Sodium (Levothyroxine Sodium) 75 Mcg Tab 1 TAB PO DAILY for 30 Days, #30 TAB 5 Refills Nitroglycerin (Nitrostat) 0.4 Mg Tab 1 TAB SL UD, #100 TAB 3 Refills Potassium Chloride Microencaps (Potassium Chloride Er) 10 Meq Tab 1 TAB PO 2XWK for 30 Days, TAB 5 Refills TAKES DIFFERENT TIMES Simvastatin (Zocor) 10 Mg Tab 10 MG PO QPM, 0 Refills Terazosin (Hytrin) 5 Mg Cap 10 MG PO QPM, 0 Refills Discontinued Medications: Fish Oil (Dana-3) 1 Ea Cap 1000 MG PO QAM, 0 Refills Warfarin Sodium (Coumadin) 5 Mg Tab 5 MG PO UD, TAB TAKE 7.5MG MON AND THURS. ALL OTHER DAYS TAKE 5 MG. Admission Information HPI (per Admitting provider): patient with symptomatic bladder stones and enterococcus uti. he had a cysto with laser of bladder stones complicated by size and number of stones and brisk bleeding. He had a second look surgery the next day and then took several days to resolve his hematuria. He had a failed wean off his continuous bladder irrigation on 03/03/17 which resulted in painful clot retention and had a third trip to OR to remove the clots and fulgurate some bleeding areas on the prostate middle lobe. He then weaned off the cbi on 03/04/17 He failed a void trial overnight 03/04-03/05 and was discharged with a 18 fr coude phelan and a leg bag. Physical Exam (per Admitting): thin, pale, no acute cardiopulmonary distress, euvolemic, no rash, flat abdomen , normal anatomy Hospital Course ASSESSMENT & PLAN: Hematuria with history of Urine Culture: Enterococcus (Epic records) -continue Ciprofloxacin 500 mg q12 hours started from 02/26/2017 -s/p Cysto, laser lithotripsy and staged removal of multiple bladder stones -s/p CBI therapy, has 18 fr coude phelan to simple drainage -s/p clot evacuation from bladder on 03/03/17 with Hgb 9.8 to 8.6 -Hold coumadin, Fish Oil for now Ischemic Cardiomyopathy S/P AICD/Pacer, EF 15-20% -Chronic Oxygen dependency: on 2L at baseline -appears euvolemic, P.Afib -rate controlled -continue carvedilol 25 mg BID -hold coumadin for now history of CAD -can restart aspirin 81 mg daily -continue carvedilol 25 mg BID, statin, isosorbide 30 mg HTN: -continue carvedilol 25 mg BID -Hold Lasix -continue Hydralazine to 25 to 12.5mg TID -Hold for SBP less than 100 BPH -continue finasteride, terazosin Hypothyroidism: -continue levothyroxine DVT Px -SCDs for now Disposition: Per Primary team Total time spent on discharge = 30 minutes This includes examination of the patient, discharge planning, medication reconciliation, and communication with other providers. Discharge Instructions avoid heavy lifting or straining keep bowels soft remove phelan tomorrow morning and return to [facility] if not voiding by noon. resume coumadin once catheter out and urinating on your own
--- NOTE | 2017-03-05 10:41 | Progress Note ---
Internal Med Progress Note Date of Service: Mar 05, 2017. Provider Documentation: SUBJECTIVE: patient seen today by medicine consult. he had phelan replaced in the night time and CBI restarted after having abdominal discomfort and minimal micturition. patient otherwise no other acute complaints. Denies vomiting. Denies chest pain. Denies shortness of breath. Denies abdominal pain OBJECTIVE: Exam: General-NAD, speaking in full sentences, on nasal cannula Eyes- EOMI, no jaundice ENT-nontender, no oral or nasal exudates Neck- nontender, no JVD Lungs- no crackles, no wheezing on lung auscultation. no use of accessory muscles Heart- regular rate Abdomen- soft, nontender to palpation Extremities- no edema of extremities Neuro- AO x 3 : phelan, serosanguineous fluid in phelan bag, some hematuria on patient's gown ASSESSMENT & PLAN: ASSESSMENT & PLAN: Patient is under urology service with enterococcus on urine culture from Friday02/25/17. Post op day number 7 from staged removal of multiple bladder stones. S/ p removal of bladder clots and fulguration of middle lobe of prostate by urology on 03/03/2017 Hematuria with history of Urine Culture: Enterococcus (Epic records) -continue Ciprofloxacin 500 mg q12 hours started from 02/26/2017 -s/p Cysto, laser lithotripsy and staged removal of multiple bladder stones -s/p removal of bladder clots and fulguration of middle lobe of prostate by urology on 03/03/2017 -patient again needed to have phelan replaced today with CBI -Hold coumadin, Fish Oil for now Ischemic Cardiomyopathy S/P AICD/Pacer, EF 15-20% -Chronic Oxygen dependency: on 2L at baseline -appears euvolemic, restart furosemide when needed vs at discharge to home P.Afib -rate controlled -continue carvedilol 25 mg BID -hold coumadin for now history of CAD -continue carvedilol 25 mg BID, statin, isosorbide 30 mg -hold aspirin if further plans for phelan replacements HTN: -continue carvedilol 25 mg BID -continue Hydralazine 12.5mg TID -Hold for SBP less than 100 BPH -continue finasteride, terazosin Hypothyroidism: -continue levothyroxine DVT Px -SCDs Disposition: Per urology primary team Vital Signs: Date Time Temp Pulse Resp B/P (MAP) Pulse Ox O2 Delivery O2 Flow Rate FiO2 03/05/17 07:35 Nasal Cannula 2.0 03/05/17 07:30 36.2 64 16 124/71 (88) 98 Nasal Cannula 2.0 03/04/17 23:25 Nasal Cannula 2.0 03/04/17 22:50 37.3 66 17 95/61 (72) 95 Nasal Cannula 2.0 03/04/17 21:17 83 118/63 (81) 03/04/17 15:20 96 Nasal Cannula 2.0 03/04/17 15:14 37.4 83 18 98/61 (73) 96 Room Air 03/04/17 14:05 96/59 (71) 03/04/17 11:25 36.7 73 16 117/61 (79) 91 Nasal Cannula 2.0 Lab Results: 03/03/17 06:00 03/04/17 06:03 03/04/17 06:03 Test 02/26/17 00:00 02/26/17 08:23 02/28/17 07:04 03/03/17 06:00 Activated Partial Thromboplast Time 36.2 SECONDS (21.0-31.0) Partial Thromboplastin Ratio 1.4 Immature Granulocyte % (Auto) 0.0 % White Blood Count 6.34 K/uL (4.8-10.8) Red Blood Count 3.32 M/uL (4.7-6.1) 2.96 M/uL (4.7-6.1) Hemoglobin 10.9 g/dL (14.0-18.0) Hematocrit 33.6 % (42-52) Mean Corpuscular Volume 101.2 fL (80-100) 97.6 fL (80-100) Mean Corpuscular Hemoglobin 32.8 pg (25-34) 33.1 pg (25-34) Mean Corpuscular Hemoglobin Concent 32.4 g/dl (32-36) 33.9 g/dl (32-36) Platelet Count 103 K/uL (130-400) Mean Platelet Volume 9.6 fL (7.4-10.4) 9.5 fL (7.4-10.4) Neutrophils (%) (Auto) 76.6 % Lymphocytes (%) (Auto) 12.8 % Monocytes (%) (Auto) 10.1 % Eosinophils (%) (Auto) 0.3 % Basophils (%) (Auto) 0.2 % Neutrophils # (Auto) 4.86 K/uL (1.4-6.5) Lymphocytes # (Auto) 0.81 K/uL (1.2-3.4) Monocytes # (Auto) 0.64 K/uL (0.11-0.59) Eosinophils # (Auto) 0.02 K/uL (0-0.5) Basophils # (Auto) 0.01 K/uL (0-0.2) Immature Granulocyte # (Auto) 0.00 K/uL (0.00-0.02) RDW Standard Deviation 45.6 fL (36.4-46.3) RDW Coefficient of Variation 12.8 % (11.5-14.5) Test 03/04/17 06:03 Prothrombin Time 11.7 SECONDS (9.0-12.0) Prothromb Time International Ratio 1.1 (0.9-1.1) Anion Gap 3.0 mmol/L (3-11) Est Creatinine Clear Calc Drug Dose 79.1 ml/min Estimated GFR () 96.3 Estimated GFR (Non- 83.1 BUN/Creatinine Ratio 16.3 (10-20) Calcium Level 8.3 mg/dl (8.5-10.1)
--- NOTE | 2017-03-07 12:00 | EDITING REQUIRED CODING QUERY ---
CODING QUERY To promote full compliance with coding requirements relating to patient care, provider participation is requested in all cases of rivet maker uncertainty. Please assist us with the question(s) below: Coding Question(s): Please clarify below, in your clinical opinion, regarding the bleeding of the prostate. ( X ) The bleeding of the prostate was an intraoperative complication ( ) This was present on inpatient admission ( X ) This was not present until after the inpatient admission ( ) The bleeding of the prostate was not an intraoperative complication but was due to other: Specify ( ) This was present on inpatient admission ( ) This was not present until after the inpatient admission ( ) The bleeding of the prostate was not an intraoperative complication and the source is unknown ( ) This was present on inpatient admission ( ) This was not present on inpatient admission Physician's Response(s): Thank you Shani Blevins Principal Diagnosis: "_that condition established after study, to be chiefly responsible for occasioning the admission of the patient to the hospital for care." Co-Existing Principal Diagnosis: "_when two or more diagnoses equally meet the criteria for principal diagnosis as determined by the circumstances of admission, diagnostic work up, and/or therapy provided, and the Alphabetic Index, Tabular List, or another coding guideline does not provide sequencing direction, any one of the diagnoses may be sequenced first." "When the physician has documented what appears to be a current diagnosis in the body of the record, but has not included the diagnosis in the final diagnostic statement, the physician should be asked whether the diagnosis should be added." (Source Coding [facility] 2 QTR90. p3-4)
== END 2017-03-05 12:15 | disposition home or self-care (01) | DRG 663 ==
LOC: C.ACU 07:06 → ENRESERV 15:11 → C.MSW 16:07 → CMPBEDREQ 18:38 → OBSVTOIN 03-04 12:03
PROVIDERS: ADMIT Urology; ATTEND Urology
PROC: 0TCB8ZZ Extirpation of Matter from Bladder, Via Natural or Artificial Opening Endoscopic (ICD-10-PCS; 2017-02-27)
PROC: 0TCB8ZZ Extirpation of Matter from Bladder, Via Natural or Artificial Opening Endoscopic (ICD-10-PCS; 2017-03-03)
PROC: 0W3R8ZZ Control Bleeding in Genitourinary Tract, Via Natural or Artificial Opening Endoscopic (ICD-10-PCS; principal; 2017-03-03 20:30)
PROC: 0TCB8ZZ Extirpation of Matter from Bladder, Via Natural or Artificial Opening Endoscopic (ICD-10-PCS; principal; 2017-03-03 20:30)
DX: N21.0 Calculus in bladder (principal); N99.61 Intraoperative hemorrhage and hematoma of a genitourinary system organ or structure complicating a genitourinary system procedure; N39.0 Urinary tract infection, site not specified; I50.22 Chronic systolic (congestive) heart failure; N32.89 Other specified disorders of bladder; R31.0 Gross hematuria; N42.1 Congestion and hemorrhage of prostate; B95.2 Enterococcus as the cause of diseases classified elsewhere; I48.0 Paroxysmal atrial fibrillation; I25.10 Atherosclerotic heart disease of native coronary artery without angina pectoris; N40.0 Benign prostatic hyperplasia without lower urinary tract symptoms; E03.9 Hypothyroidism, unspecified; I11.9 Hypertensive heart disease without heart failure; E78.5 Hyperlipidemia, unspecified; I25.5 Ischemic cardiomyopathy; I25.2 Old myocardial infarction; Z79.899 Other long term (current) drug therapy; Z79.01 Long term (current) use of anticoagulants; Z79.82 Long term (current) use of aspirin; Z95.5 Presence of coronary angioplasty implant and graft; Z86.73 Personal history of transient ischemic attack (TIA), and cerebral infarction without residual deficits; Z95.810 Presence of automatic (implantable) cardiac defibrillator; Z82.49 Family history of ischemic heart disease and other diseases of the circulatory system; Y83.8 Other surgical procedures as the cause of abnormal reaction of the patient, or of later complication, without mention of misadventure at the time of the procedure

== ENCOUNTER 2022-12-20 14:59 | Inpatient (IN) ==
[2022-12-20] MEDS ORDERED: FUROSEMIDE 40 MG/4 ML VIAL IV ONE (16:27)
--- NOTE | 2022-12-20 16:31 | Emergency Department Note ---
Impression & Plan Congestive heart failure, Pulmonary edema, Pedal edema ED Provider Note INFORMANT: Patient and patient's ED PROVIDER(S): Raoul Ross DO CHIEF COMPLAINT: Low pulse ox PLAN: Disposition: Admission Outpatient prescription management: [none] Discussion with: I spoke with the hospitalist, who will see the patient for admission/observation and further evaluation and consultation. MEDICAL DECISION MAKING: This is a 82-year-old male who presents to the ED with a chief complaint of decreased pulse ox intermittently. The patient's primarily provides the complaint. The patient is hard of hearing. The patient has had some increased exertional need for oxygen according to the . He normally does need 4 L with exercise but with minimal activity it seems to drop. The patient's states that he seems a little more sleepy and tired than usual. His ability to complete activities of daily living seems a little more difficult as well. The has noticed increased pedal edema. He does take furosemide for congestive heart failure. She states that this is also the reason he is on the oxygen chronically. The patient is in no distress on my exam. He is currently on 4 L saturating 100%. The patient has some crackles in the lungs on my exam. He does have symmetrical pitting pedal edema bilaterally. He is in no distress. Heart is regular rate and rhythm. EKG shows a paced ventricular rhythm at a rate of 65. CBC did not show anemia or leukocytosis. BUN is 29. Chemistry panel was unremarkable. INR is 2.2 on Coumadin. Troponin is 22. Chest x-ray shows congestive heart failure with pulmonary edema and bilateral pleural effusions. The patient was told the results of the test. He will be seen by the hospitalist for further evaluation and care. He was treated with IV Lasix. Triage Nursing notes reviewed. Vital Signs: reviewed Prior /Outside records reviewed: [none] Differential diagnosis: Pneumonia, congestive heart failure, hypoxia, unlikely PE, deconditioning, other Diagnostics, as interpreted by me: 12 lead ECG: Paced ventricular rhythm at a rate of 65 with a PVC. Cardiac Monitoring ordered: Paced ventricular rhythm in the 60s. Medical decision rules: [none] Imaging studies: Chest x-ray: Pulmonary edema Procedures: none. Critical care: none. HPI: See MDM above. PAST MEDICAL HISTORY: See Below PAST SURGICAL HISTORY: See Below SOCIAL HISTORY: See Below HOME MEDICATIONS:See Below ALLERGIES: See Below VITALS: See Below PHYSICAL EXAMINATION: See MDM for positive findings otherwise unremarkable. CONSTITUTIONAL/VITAL SIGNS: Reviewed GENERAL:done as appropriate INTEGUMENTARY: done as appropriate HEAD: done as appropriate EYES: done as appropriate RESPIRATORY: done as appropriate CARDIOVASCULAR:done as appropriate GI/ABDOMEN:done as appropriate EXTREMITIES: done as appropriate NEUROLOGICAL: done as appropriate PSYCHIATRIC:done as appropriate MUSCULOSKELETAL:done as appropriate TRIAGE NURSING DOCUMENTATION REVIEWED. Past Med/Surg History Social History Smoking Status: Never smoker Preferred Language: Amharic Feels Safe at Home: Yes Allergies Allergies Allergy/AdvReac Type Severity Reaction Status Date / Time spironolactone Allergy Intermediate LIP Verified 02/26/17 08:27 SWELLING Home Meds Home Medications Medication Instructions Recorded Confirmed Carvedilol (Coreg *) 25 mg PO BID ##0 01/21/11 Finasteride (Proscar) 5 mg PO QPM ##0 01/21/11 Simvastatin (Zocor) 10 mg PO QPM ##0 01/21/11 Terazosin (Hytrin) 10 mg PO QPM ##0 01/21/11 Hydralazine HCl 25 mg PO TID ##0 05/15/16 Isosorbide Mononitrate Ext Rel 1 tab PO QAM 30 days #30 tabs 05/15/16 (Imdur Ext Rel) POTASSIUM CHLORIDE MICROENCAPS 1 tab PO 2XWK 30 days #0 tabs 05/15/16 (POTASSIUM CHLORIDE ER) ASPIRIN (ASPIRIN CHEWABLE) 81 mg PO QAM ##0 06/05/16 Nitroglycerin (Nitrostat) 1 tab sublingual UD #100 tabs 06/05/16 Furosemide (Lasix) 40 mg PO QAM #0 tabs 01/01/17 LEVOTHYROXINE SODIUM 1 tab PO DAILY 30 days #30 tabs 02/26/17 Results & Data (ED) Vital Signs Vital Signs - 24 hr 12/20/22 15:13 12/20/22 16:00 12/20/22 16:00 Temperature 36.3 C L Temperature Source Temporal Artery Scan Pulse Rate 67 79 Pulse Rate [Apical] 74 Respiratory Rate 19 23 Blood Pressure 103/63 Blood Pressure [Right Arm] 113/76 Blood Pressure Mean 76 Blood Pressure Mean [Right Arm] 88 Blood Pressure Position [Right Arm] Semi-fowlers Pulse Oximetry 92 100 Oxygen Delivery Method Nasal Cannula Nasal Cannula Oxygen Flow Rate 4 4 Sepsis Recent Fever Within 48 Hours No Sepsis New/Unexplained Change in Mental Status N/A Sepsis Action Taken by Nursing No Action Required 12/20/22 18:08 Temperature Temperature Source Pulse Rate Pulse Rate [Apical] Respiratory Rate Blood Pressure Blood Pressure [Right Arm] Blood Pressure Mean Blood Pressure Mean [Right Arm] Blood Pressure Position [Right Arm] Pulse Oximetry 97 Oxygen Delivery Method Nasal Cannula Oxygen Flow Rate 3 Sepsis Recent Fever Within 48 Hours Sepsis New/Unexplained Change in Mental Status Sepsis Action Taken by Nursing Laboratory Data 12/20/22 16:05 12/20/22 16:05 Lab Results 12/20/22 12/20/22 12/20/22 Range/Units 16:05 16:05 16:05 WBC 5.07 (4.8-10.8) K/ul RBC 3.21 L (4.70-6.10) M/uL Hgb 10.4 L (14.0-18.0) g/dl Hct 33.5 L (42.0-52.0) % MCV 104.4 H (80.0-100.0) fL MCH 32.4 (25.0-34.0) pg MCHC 31.0 L (32.0-36.0) g/dL RDW Std Deviation 49.4 H (36.4-46.3) fL RDW Coeff of Alba 12.9 (11.5-14.5) % Plt Count 115 L (130-400) K/uL MPV 10.6 (9.4-12.4) fL Immature Gran % (Auto) 0.4 % Neut % (Auto) 75.5 % Lymph % (Auto) 12.0 % Waller % (Auto) 8.1 % Eos % (Auto) 3.4 % Baso % (Auto) 0.6 % Neut # (Auto) 3.83 (1.40-6.50) K/uL Lymph # (Auto) 0.61 L (1.2-3.4) K/uL Waller # (Auto) 0.41 (0.11-0.59) K/uL Eos # (Auto) 0.17 (0-0.50) K/uL Baso # (Auto) 0.03 (0-0.2) K/uL Immature Gran # (Auto) 0.02 (0.01-0.20) K/uL PT 23.0 H (9.0-12.0) Seconds INR 2.2 H (0.9-1.1) APTT 35.9 H (21.0-31.0) Seconds PTT Ratio 1.3 Sodium 143 (136-145) mmol/L Potassium 4.2 (3.5-5.1) mmol/L Chloride 99 (98-107) mmol/L Carbon Dioxide 40 H (21-32) mmol/L Anion Gap 4 (3-11) BUN 29 H (6-23) mg/dl Creatinine 1.28 (0.6-1.4) mg/dl Est Cr Clr Drug Dosing 42.3 ml/min Est GFR ( Amer) 60.0 ml/min Est GFR (Non-Af Amer) 51.8 ml/min BUN/Creatinine Ratio 22.7 H (10-20) Glucose 98 (70-99(Fasting)) mg/dl Calcium 9.1 (8.6-10.3) mg/dl Total Bilirubin 0.8 (0.2-1.0) mg/dl AST 23 (13-39) U/L ALT 19 (7-52) U/L Alkaline Phosphatase 58 (34-104) U/L Troponin I High Sens 22.1 H (0-20) pg/ml Total Protein 7.6 (6.0-8.3) gm/dl Albumin 4.3 (3.4-5.0) gm/dl Globulin 3.3 (2.5-4.0) gm/dl Albumin/Globulin Ratio 1.3 (0.9-2) Administered Medications Discontinued Medications Furosemide (Furosemide 40 Mg/4 Ml Vial) 40 mg IV ONE ONE Stop: 12/20/22 16:28 Last Admin: 12/20/22 16:30 Dose: 40 mg Documented By: AB Imaging Data Radiologist's Impression: Chest X-Ray 12/20/22 15:18 SINGLE VIEW CHEST CLINICAL HISTORY: Atypical chest pain. FINDINGS: An AP, portable, upright chest radiograph is compared to study dated 03/21/2020. A multilead cardiac AICD is unchanged in position. The heart is enlarged noting atherosclerotic calcification of the thoracic aorta. There is pulmonary vascular congestion with interstitial edema. There are left larger than right pleural effusions with dependent consolidation. No pneumothorax is seen. The skeletal structures are osteopenic. There are chronic/healed right po sterior rib fractures. IMPRESSION: 1. Cardiomegaly and AICD with evidence of congestive failure and pulmonary edema. 2. Left larger than right pleural effusions with dependent consolidation. ACT 112: Negative or not required by law. Electronically signed by: Zhang Simpson M.D. 12/20/2022 5:00 PM Discharge Plan Visit Data Chief Complaint: Shortness of Breath/Dyspnea Stated Complaint: LOW OXYGEN ED Provider: Raoul Ross Discharge Problem: Congestive heart failure, Pulmonary edema, Pedal edema Patient Disposition: Being Evaluated by Hospitalist Forms Stand Alone Forms: [facility] Emergency Department, Important Visit Information Prescriptions Prescriptions: No Action Carvedilol (Coreg *) 25 MG tablet 25 mg PO BID Qty: 0 Simvastatin (Zocor) 10 MG tablet 10 mg PO QPM Qty: 0 Terazosin (Hytrin) 5 MG capsule 10 mg PO QPM Qty: 0 Finasteride (Proscar) 5 MG tablet 5 mg PO QPM Qty: 0 Isosorbide Mononitrate Ext Rel (Imdur Ext Rel) 30 MG EXT REL TAB 1 tab PO QAM 30 Days Qty: 30 POTASSIUM CHLORIDE MICROENCAPS (POTASSIUM CHLORIDE ER) 10 MEQ tablet 1 tab PO 2XWK 30 Days Qty: 0 Patient Comments: TAKES DIFFERENT TIMES Hydralazine HCl 25 MG tablet 25 mg PO TID Qty: 0 ASPIRIN (ASPIRIN CHEWABLE) 81 MG CHEWABLE TAB 81 mg PO QAM Qty: 0 Nitroglycerin (Nitrostat) 0.4 MG tablet 1 tab Sublingual UD Qty: 100 Furosemide (Lasix) 40 MG tablet 40 mg PO QAM Qty: 0 LEVOTHYROXINE SODIUM 75 MCG tablet 1 tab PO DAILY 30 Days Qty: 30 Referrals Referrals: Kamari Jordan MD [Primary Care Provider] -
[2022-12-20 16:34] LABS: Basophils # (auto) 0.03 K/uL (0-0.2); Basophils % (auto) 0.6 %; Eosinophils # (auto) 0.17 K/uL (0-0.50); Eosinophils % (auto) 3.4 %; Hematocrit (blood only) 33.5 % (42.0-52.0); Hemoglobin 10.4 g/dl (14.0-18.0); Immature Granulocytes # (auto) 0.02 K/uL (0.01-0.20); Immature Granulocytes % (auto) 0.4 %; Lymphocytes # (auto) 0.61 K/uL (1.2-3.4); Mean Corpuscular Hemoglobin 32.4 pg (25.0-34.0); Mean Corpuscular Volume 104.4 fL (80.0-100.0); Mean Platelet Volume 10.6 fL (9.4-12.4); Monocytes # (auto) 0.41 K/uL (0.11-0.59); Monocytes % (auto) 8.1 %; Neutrophils # (auto) 3.83 K/uL (1.40-6.50); Neutrophils % (auto) 75.5 %; Platelet Count 115 K/uL (130-400); RDW Coefficient of Variation 12.9 % (11.5-14.5); RDW Standard Deviation 49.4 fL (36.4-46.3); Red Blood Count 3.21 M/uL (4.70-6.10); White Blood Count 5.07 K/ul (4.8-10.8)
[2022-12-20 16:53] LABS: Albumin Globulin Ratio 1.3 (0.9-2); Albumin Level 4.3 gm/dl (3.4-5.0); BUN Creatinine Ratio 22.7 (10-20); Bilirubin,Total 0.8 mg/dl (0.2-1.0); Calcium 9.1 mg/dl (8.6-10.3); Creatinine Clr Calc Pharmacy 42.3 ml/min; Est GFR (Non-African American) 51.8 ml/min; Globulin 3.3 gm/dl (2.5-4.0); Potassium 4.2 mmol/L (3.5-5.1); Total Protein 7.6 gm/dl (6.0-8.3)
[2022-12-20 16:57] LABS: Troponin I High Sensitivity 22.1 pg/ml (0-20)
--- NOTE | 2022-12-20 17:01 | XRay Report ---
SINGLE VIEW CHEST CLINICAL HISTORY: Atypical chest pain. FINDINGS: An AP, portable, upright chest radiograph is compared to study dated 03/21/2020. A multilead cardiac AICD is unchanged in position. The heart is enlarged noting atherosclerotic calcification of the thoracic aorta. There is pulmonary vascular congestion with interstitial edema. There are left l arger than right pleural effusions with dependent consolidation. No pneumothorax is seen. The skeleta l structures are osteopenic. There are chronic/healed right posterior rib fractures. IMPRESSION: 1. Cardiomegaly and AICD with evidence of congestive failure and pulmonary edema. 2. Left larger than right pleural effusions with dependent consolidation. ACT 112: Negative or not required by law. Electronically signed by: Zhang Simpson M.D. 12/20/2022 5:00 PM
[2022-12-20 17:03] LABS: INR 2.2 (0.9-1.1); Partial Thromboplastin Ratio 1.3; Partial Thromboplastin Time 35.9 Seconds (21.0-31.0)
[2022-12-20] MEDS ORDERED: MAGNESIUM HYDROXIDE SUSP 30 ML UDC PO PRN (18:39)
[2022-12-20] MEDS ORDERED: POLYETHYLENE (MIRALAX) 17 GM PACK PO PRN (18:39)
[2022-12-20] MEDS ORDERED: ACETAMINOPHEN 325 MG TAB PO PRN (18:39)
[2022-12-20] MEDS ORDERED: ONDANSETRON INJ 2 MG/ML 2 ML VIAL IV PRN (18:39)
[2022-12-20] MEDS ORDERED: ALUMINUM/MAGNESIUM SUSP 30 ML UDC PO PRN (18:39)
--- NOTE | 2022-12-20 18:46 | History & Physical Report ---
Date of Service December 20, 2022 Assessment & Plan (1) HFrEF (heart failure with reduced ejection fraction): (2) CAD (coronary artery disease): (3) Pulmonary edema: (4) AICD (automatic cardioverter/defibrillator) present: (5) HTN (hypertension): (6) HLD (hyperlipidemia): (7) Paroxysmal atrial fibrillation: (8) BPH (benign prostatic hypertrophy): (9) Hypothyroidism: History of Present Illness Chief Complaint: shortness of breath Primary Care Provider: Kamari Jordan MD 82 year old presents to the [facility] ED with complaints of worsening SOB over the past few days with increased home supplemental O2. use. Wears 2lNC at baseline. He states that he usually is able to walk to the mailbox and retrieve the mail, but has not been able to do that lately. Going up the stairs makes him quite winded but he reports that is not unusual for him. CXR revealed cardiomyopathy with AICD presence. CXR Left larger than right pleural effusions with dependent consolidation. He was given 40 mg Lasix IV in the ED. Pt takes Coumadin for pAF. His INR 2.2 today. Initial Troponin 2.2; will trend Additional PMH includes: Cardiomyopathy, CAD AICD placement, H/O TIA, hypothyroidism, HTN, pAF, HLD, Last ECHO 2017 LVEF 20-24%, mild AR/TR no pHTN. Patient will be admitted for further evaluation and management. Please see A/P for further details. Allergies Allergy/AdvReac Type Severity Reaction Status Date / Time spironolactone Allergy Intermediate LIP Verified 02/26/17 08:27 SWELLING Home Medications Medication Instructions Recorded Confirmed Type carvedilol 25 mg tablet 25 mg PO BID ##0 01/21/11 12/20/22 History finasteride 5 mg tablet 5 mg PO PM ##0 01/21/11 12/20/22 History simvastatin 10 mg tablet 10 mg PO PM ##0 01/21/11 12/20/22 History terazosin 5 mg capsule 5 mg PO HS ##0 01/21/11 12/20/22 History POTASSIUM CHLORIDE MICROENCAPS 1 tab PO 2XWK 30 days #0 tabs 05/15/16 12/20/22 History (POTASSIUM CHLORIDE ER) hydralazine 25 mg tablet 25 mg PO TID ##0 05/15/16 12/20/22 History isosorbide mononitrate 30 mg 30 mg PO QAM 30 days #30 tabs 05/15/16 12/20/22 History tablet,extended release 24 hr Nitroglycerin (Nitrostat) 1 tab sublingual UD #100 tabs 06/05/16 12/20/22 Histor y aspirin 81 mg tablet,delayed 81 mg PO QAM ##0 06/05/16 12/20/22 History release furosemide 40 mg tablet 40 mg PO QAM #0 tabs 01/01/17 12/20/22 History levothyroxine 75 mcg tablet 75 mcg PO DAILY 30 days #30 tabs 02/26/17 12/20/22 History warfarin 5 mg tablet 0 mg PO DIRECTED 12/20/22 12/20/22 History Past Med/Surg History Medical History (Updated 12/20/22 @ 18:46 by JREEMI Ramsey) HFrEF (heart failure with reduced ejection fraction) HLD (hyperlipidemia) Paroxysmal atrial fibrillation Social History Smoking Status: Never smoker Preferred Language: Citizen [place] Feels Safe at Home: Yes Review of Systems Review of Systems: Neuro: (-) Falls, trauma, slurred speech HEENT: (-) VIDAL, dizziness, dysphagia, visual or auditory changes CV: (-) CP, palpitations, (+) swelling Resp: (-) SOB GI: (-) appetite changes, N/V/D, bowel changes : (-) urinary changes Skin: (-) rashes Psych: (-) anxiety, depression Physical Exam Physical Exam: Neuro: AAOx4, PERRLA, no aphagia, memory changes, CNII-XII grossly intact HEENT: head normocephalic, moist mucus membranes CV: S1/S2, (-) M/G/R, (+) pedal edema, cap refill < 3 seconds Resp: Lungs CTA in all chery. On RA GI: Abdomen S/NT/ND, Ax4 bowel sounds, (-) CVA tenderness Musculoskeletal: 5/5 B/L UE strength, 5/5 B/L LE strength. No gait disturbance Skin: (-) rashes , (-) erythema. Psych: euthymic mood Results & Data Results & Data Vital Signs (Past 12 Hours) Vital Signs Temp Pulse Pulse Resp BP BP Pulse Ox 12/20/22 18:08 97 12/20/22 16:00 79 12/20/22 16:00 74 23 113/76 100 12/20/22 15:13 36.3 C L 67 19 103/63 92 O2 Del Method O2 Flow Rate 12/20/22 18:08 Nasal Cannula 3 12/20/22 16:00 12/20/22 16:00 Nasal Cannula 4 12/20/22 15:13 Nasal Cannula 4 Laboratory Results Short CBC 12/20/22 Range/Units 16:05 WBC 5.07 (4.8-10.8) K/ul Hgb 10.4 L (14.0-18.0) g/dl Hct 33.5 L (42.0-52.0) % Plt Count 115 L (130-400) K/uL BMP 12/20/22 16:05 Sodium 143 Potassium 4.2 Chloride 99 Carbon Dioxide 40 H BUN 29 H Creatinine 1.28 Glucose 98 Calcium 9.1 Liver Function 12/20/22 Range/Units 16:05 Total Bilirubin 0.8 (0.2-1.0) mg/dl AST 23 (13-39) U/L ALT 19 (7-52) U/L Alkaline Phosphatase 58 (34-104) U/L Albumin 4.3 (3.4-5.0) gm/dl Diagnostic Findings Chest X-Ray 12/20/22 15:18 SINGLE VIEW CHEST CLINICAL HISTORY: Atypical chest pain. FINDINGS: An AP, portable, upright chest radiograph is compared to study dated 03/21/2020. A multilead cardiac AICD is unchanged in position. The heart is enlarged noting atherosclerotic calcification of the thoracic aorta. There is pulmonary vascular congestion with interstitial edema. There are left larger than right pleural effusions with dependent consolidation. No pneumothorax is seen. The skeletal structures are osteopenic. There are chronic/healed right posterior rib fractures. IMPRESSION: 1. Cardiomegaly and AICD with evidence of congestive failure and pulmonary edema. 2. Left larger than right pleural effusions with dependent consolidation. ACT 112: Negative or not required by law. Electronically signed by: Zhang Simpson M.D. 12/20/2022 5:00 PM Code Status & VTE Plan Code Status Full Code in the event of cardiac or respiratory arrest VTE Prophylaxis Plan VTE Prophylaxis will be ordered: Yes
--- NOTE | 2022-12-20 20:43 | History & Physical Report ---
Date of Service December 20, 2022 Assessment & Plan (1) Acute on chronic respiratory failure with hypoxia: Plan: d/t acute on chronic HFrEF continue diuresis as below under acute on chronic HFrEF continue supplemental O2, currently back down to home dose of 2 LPM anticipate d/c tomorrow or the next day Present on Admission?: Yes (2) Acute on chronic HFrEF (heart failure with reduced ejection fraction): Plan: per pt has been developing over months, improving with diuresis suspect requires a higher dose of furosemide at baseline c/b b/l pleural effusions, L > R seen on CXR trop mildly elevated, likely d/t strain and poor renal clearance, cycle troponin continue IV Furosemide for diuresis through 12/21/22 continue GDMT consider adding MARINO-inhibitor, ARB, SGLT2-inhibitor strict I/O, daily weights, daily bmp while being diuresed Present on Admission?: Yes (3) Persistent atrial fibrillation: Plan: rate controlled continue Carvedilol 25 mg po BID anticoagulated with Warfarin, continue home dose INR therapeutic 2.2 Present on Admission?: Yes (4) CAD (coronary artery disease): Plan: no complaints of pain continue ASA, statin therapy, BB (Carvedilol), Isosorbide Mononitrate trop mildly elevated, consistent with strain and poor clearance, not consistent with ACS f/u serial troponin Present on Admission?: Yes (5) Stage 3a chronic kidney disease (CKD): Plan: Cr 1.28, eGFR 52, baseline avoid nephrotoxins and hypotension Present on Admission?: Yes (6) Hypothyroidism: Plan: continue Levothyroxine 75 mcg daily f/u TSH Present on Admission?: Yes (7) BPH (benign prostatic hypertrophy): Plan: no complaints at this time continue Finasteride 5 mg daily, Terazosin 5 mg hs (8) HTN (hypertension): Plan: well controlled continue carvedilol 25 mg BID, Hydralazine 25 mg TID, Isosorbide mononitrate 30 mg daily, Terazosin 5 mg hs continue with IV Furosemide for diuresis, will likely need 40 mg BID at d/c (increase from home dose of 40 daily) Present on Admission?: Yes (9) HLD (hyperlipidemia): Plan: continue statin therapy no need to check a lipid panel at this time Present on Admission?: Yes (10) Pacemaker: Plan: noted Present on Admission?: Yes History of Present Illness Chief Complaint: shortness of breath Primary Care Provider: Kamari Jordan MD Mr. Gonzalez is an 82 year old male with pmhx hx (per chart) of AAA without rupture, CAD s/p NV s/p stent LAD, ICM, HFrEF s/p AICD, persistent AFib on warfarin, s/p DCCV, HTN, HLP, chronic hypoxic respiratory failure on 2LPM O2, pulmonary HTN, Hypothyroidisim, CKD IIIa, bladder stones, BPH with LUTS, internal hemorrhoids, chronic anemia, and thrombocytopenia. He presented d/t shortness of breath gradually worsening x months. He is found to have acute on chronic respiratory failure with hypoxia d/t acute on chronic HFrEF c/b pleural effusions. Initially required 4 LPM O2. Mr. Gonzalez reports medication compliance. He denies dietary indiscretions, changes in dietary habits, or increased fluid intake. Over the past several months he notes gradually worsening sob beyond baseline. Lower extremity edema is fairly constant. He try to take some extra lasix today without change in breathing or edema. This is associated with feeling weak and tired. He has no additional associated symptoms. He denies recent or current dizziness, lightheadedness, f/c/n/v, diaphoresis, flushing, CP, palpitations, cough, congestion, sore throat, abdominal pain, and diarrhea. He just has a follow up for AAA yesterday and was told it is slightly bigger than before. There were no concerns regarding fluid balance. ED Course b/w notable for h/h 10.4/33.5, plt 115, CO2 40, BUN 29, remaining cmp, cbc unremarkable. Trop 22.1, INR 2.2 CXR notable for b/l pleural effusions L > R with compressive atelectasis VS notable for T 36.3 C, HDS. 92% on 4 LPM In the ED he was given IV Lasix with improvement. He was weaned back down to 2 LPM O2. Shortness of breath improved somewhat, but still significant. Placed on hospitalist service for ongoing diuresis. Allergies Allergy/AdvReac Type Severity Reaction Status Date / Time spironolactone Allergy Intermediate LIP Verified 02/26/17 08:27 SWELLING Home Medications Medication Instructions Recorded Confirmed Type carvedilol 25 mg tablet 25 mg PO BID ##0 01/21/11 12/20/22 History finasteride 5 mg tablet 5 mg PO PM ##0 01/21/11 12/20/22 History simvastatin 10 mg tablet 10 mg PO PM ##0 01/21/11 12/20/22 History terazosin 5 mg capsule 5 mg PO HS ##0 01/21/11 12/20/22 History POTASSIUM CHLORIDE MICROENCAPS 1 tab PO 2XWK 30 days #0 tabs 05/15/16 12/20/22 History (POTASSIUM CHLORIDE ER) hydralazine 25 mg tablet 25 mg PO TID ##0 05/15/16 12/20/22 History isosorbide mononitrate 30 mg 30 mg PO QAM 30 days #30 tabs 05/15/16 12/20/22 History tablet,extended release 24 hr Nitroglycerin (Nitrostat) 1 tab sublingual UD #100 tabs 06/05/16 12/20/22 History aspirin 81 mg tablet,delayed 81 mg PO QAM ##0 06/05/16 12/20/22 History release furosemide 40 mg tablet 40 mg PO QAM #0 tabs 01/01/17 12/20/22 History levothyroxine 75 mcg tablet 75 mcg PO DAILY 30 days #30 tabs 02/26/17 12/20/22 History warfarin 5 mg tablet 5 mg PO DIRECTED 12/20/22 12/20/22 History Past Med/Surg History Medical History (Updated 12/20/22 @ 21:35 by Lilian Fernandez MD) HFrEF (heart failure with reduced ejection fraction) HLD (hyperlipidemia) Paroxysmal atrial fibrillation Persistent atrial fibrillation Stage 3a chronic kidney disease (CKD) Social History Smoking Status: Never smoker Preferred Language: Sammarinese Feels Safe at Home: Yes Review of Systems Review of Systems: as under HPI Physical Exam Physical Exam: General: well nourished, well developed, elderly appearing male. Looks comfortable on NC at rest, appears to get mildly short of breath with talking. Head: NC AT Eyes: anicteric sclera, no conjunctival injection Nose: normal, nares patent Mouth: MMM Neck: supple, trachea midline CV: irreg rhythm, reg rate, S1 S2 Pulm: diminished sounds b/l, crackles, mild increased effort with prolonged talking Abd/GI: + BS, soft, NT, ND, no guarding Ext: 2+ b/l LE pitting edema MSK: normal bulk and tone Neuro: alert, oriented x 3, moving all 4 extremities symmetrically Psych: pleasant mood and affect Skin: visible skin is warm, dry, and without rash. Pt not fully undressed for exam. Results & Data Results & Data Vital Signs (Past 12 Hours) Vital Signs Temp Pulse Pulse Resp BP BP Pulse Ox 12/20/22 19:54 61 12/20/22 18:08 97 12/20/22 16:00 79 12/20/22 16:00 74 23 113/76 100 12/20/22 15:13 36.3 C L 67 19 103/63 92 O2 Del Method O2 Flow Rate 12/20/22 19:54 12/20/22 18:08 Nasal Cannula 3 12/20/22 16:00 12/20/22 16:00 Nasal Cannula 4 12/20/22 15:13 Nasal Cannula 4 Diagnostic Findings Laboratory Results WBC 5.07 K/ul (4.8-10.8) 12/20/22 16:05 RBC 3.21 M/uL (4.70-6.10) L 12/20/22 16:05 Hgb 10.4 g/dl (14.0-18.0) L 12/20/22 16:05 Hct 33.5 % (42.0-52.0) L 12/20/22 16:05 MCV 104.4 fL (80.0-100.0) H 12/20/22 16:05 MCH 32.4 pg (25.0-34.0) 12/20/22 16:05 MCHC 31.0 g/dL (32.0-36.0) L 12/20/22 16:05 RDW Std Deviation 49.4 fL (36.4-46.3) H 12/20/22 16:05 RDW Coeff of Alba 12.9 % (11.5-14.5) 12/20/22 16:05 Plt Count 115 K/uL (130-400) L 12/20/22 16:05 MPV 10.6 fL (9.4-12.4) 12/20/22 16:05 Immature Gran % (Auto) 0.4 % 12/20/22 16:05 Neut % (Auto) 75.5 % 12/20/22 16:05 Lymph % (Auto) 12.0 % 12/20/22 16:05 [place] % (Auto) 8.1 % 12/20/22 16:05 Eos % (Auto) 3.4 % 12/20/22 16:05 Baso % (Auto) 0.6 % 12/20/22 16:05 Neut # (Auto) 3.83 K/uL (1.40-6.50) 12/20/22 16:05 Lymph # (Auto) 0.61 K/uL (1.2-3.4) L 12/20/22 16:05 [place] # (Auto) 0.41 K/uL (0.11-0.59) 12/20/22 16:05 Eos # (Auto) 0.17 K/uL (0-0.50) 12/20/22 16:05 Baso # (Auto) 0.03 K/uL (0-0.2) 12/20/22 16:05 Immature Gran # (Auto) 0.02 K/uL (0.01-0.20) 12/20/22 16:05 PT 23.0 Seconds (9.0-12.0) H 12/20/22 16:05 INR 2.2 (0.9-1.1) H 12/20/22 16:05 APTT 35.9 Seconds (21.0-31.0) H 12/20/22 16:05 PTT Ratio 1.3 12/20/22 16:05 Sodium 143 mmol/L (136-145) 12/20/22 16:05 Potassium 4.2 mmol/L (3.5-5.1) 12/20/22 16:05 Chloride 99 mmol/L (98-107) 12/20/22 16:05 Carbon Dioxide 40 mmol/L (21-32) H 12/20/22 16:05 Anion Gap 4 (3-11) 12/20/22 16:05 BUN 29 mg/dl (6-23) H 12/20/22 16:05 Creatinine 1.28 mg/dl (0.6-1.4) 12/20/22 16:05 Est Cr Clr Drug Dosing 42.3 ml/min 12/20/22 16:05 Est GFR ( Amer) 60.0 ml/min 12/20/22 16:05 Est GFR (Non-Af Amer) 51.8 ml/min 12/20/22 16:05 BUN/Creatinine Ratio 22.7 (10-20) H 12/20/22 16:05 Glucose 98 mg/dl (70-99(Fasting)) 12/20/22 16:05 Calcium 9.1 mg/dl (8.6-10.3) 12/20/22 16:05 Total Bilirubin 0.8 mg/dl (0.2-1.0) 12/20/22 16:05 AST 23 U/L (13-39) 12/20/22 16:05 ALT 19 U/L (7-52) 12/20/22 16:05 Alkaline Phosphatase 58 U/L (34-104) 12/20/22 16:05 Troponin I High Sens 22.1 pg/ml (0-20) H 12/20/22 16:05 Total Protein 7.6 gm/dl (6.0-8.3) 12/20/22 16:05 Albumin 4.3 gm/dl (3.4-5.0) 12/20/22 16:05 Globulin 3.3 gm/dl (2.5-4.0) 12/20/22 16:05 Albumin/Globulin Ratio 1.3 (0.9-2) 12/20/22 16:05 SARS-CoV-2, RNA, NAAT NEGATIVE (NEGATIVE) 12/20/22 18:23 Impressions Chest X-Ray 12/20/22 15:18 SINGLE VIEW CHEST FINDINGS: An AP, portable, upright chest radiograph is compared to study dated 03/21/2020. A multilead cardiac AICD is unchanged in position. The heart is enlarged noting atherosclerotic calcification of the thoracic aorta. There is pulmonary vascular congestion with interstitial edema. There are left larger than right pleural effusions with dependent consolidation. No pneumothorax is seen. The skeletal structures are osteopenic. There are chronic/healed right posterior rib fractures. IMPRESSION: 1. Cardiomegaly and AICD with evidence of congestive failure and pulmonary edema. 2. Left larger than right pleural effusions with dependent consolidation. Electronically signed by: Zhang Simpson M.D. 12/20/2022 5:00 PM Code Status & VTE Plan VTE Prophylaxis Plan VTE Prophylaxis will be ordered: Yes
[2022-12-20] MEDS ORDERED: POTASSIUM CHLORIDE 10 MEQ PO SCH (20:45)
[2022-12-20] MEDS: FINASTERIDE 5 MG TAB PO SCH (22:02)
[2022-12-20] MEDS: carvediloL 25 MG TAB PO SCH (22:02)
[2022-12-20] MEDS: hydrALAZINE HCL 25 MG TAB PO SCH (22:02)
[2022-12-20] MEDS: WARFARIN SOD 5 MG TAB PO SCH (22:03)
[2022-12-20] MEDS: SIMVASTATIN 10 MG TAB PO SCH (22:03)
[2022-12-20] MEDS: TERAZOSIN HCL 5 MG CAP PO SCH (22:03)
[2022-12-21 05:49] LABS: Appearance Urine Clear (Clear); Bilirubin Urine Negative (Negative); Blood Urine Negative (Negative); Color Urine Yellow; Glucose Urine UA Negative (Negative); Ketones Urine Negative (Negative); Leukocyte Esterase Urine Negative (Negative); Nitrite Urine Negative (Negative); Protein Urine Negative (Negative); Specific Gravity Urine 1.014 (1.000-1.030); Urobilinogen Urine Negative (Negative)
[2022-12-21] MEDS: LEVOTHYROXINE SODIUM 75 MCG TABLET PO SCH (06:02)
[2022-12-21 07:45] LABS: Hematocrit (blood only) 32.4 % (42.0-52.0); Hemoglobin 10.1 g/dl (14.0-18.0); Mean Corpuscular Hemoglobin 32.7 pg (25.0-34.0); Mean Corpuscular Hgb Conc 31.2 g/dL (32.0-36.0); Mean Corpuscular Volume 104.9 fL (80.0-100.0); Mean Platelet Volume 10.5 fL (9.4-12.4); Platelet Count 110 K/uL (130-400); RDW Standard Deviation 49.6 fL (36.4-46.3); Red Blood Count 3.09 M/uL (4.70-6.10); White Blood Count 5.62 K/ul (4.8-10.8)
[2022-12-21] MEDS ORDERED: FUROSEMIDE INJ 20 MG/2 ML VIAL IV ONE (08:00)
[2022-12-21 08:09] LABS: Albumin Globulin Ratio 1.3 (0.9-2); BUN Creatinine Ratio 22.2 (10-20); Bilirubin,Total 0.8 mg/dl (0.2-1.0); Creatinine Clr Calc Pharmacy 52.7 ml/min; Est GFR (African American) 61.2 ml/min; Est GFR (Non-African American) 52.8 ml/min; Globulin 3.2 gm/dl (2.5-4.0); Magnesium 2.3 mg/dl (1.7-2.4); Potassium 3.8 mmol/L (3.5-5.1); Total Protein 7.2 gm/dl (6.0-8.3)
[2022-12-21 08:15] LABS: INR 2.4 (0.9-1.1)
[2022-12-21] MEDS: ASPIRIN 81 MG ECTAB PO SCH (08:54)
[2022-12-21] MEDS: carvediloL 25 MG TAB PO SCH ×2 (08:54→20:05)
[2022-12-21] MEDS: ISOSORBIDE MONO EXTENDED REL 30 MG TABCR PO SCH (08:55)
[2022-12-21] MEDS ORDERED: POTASSIUM CHLORIDE CRTAB 20 MEQ TABCR PO SCH (09:00)
[2022-12-21] MEDS: hydrALAZINE HCL 25 MG TAB PO SCH ×3 (09:01→20:06)
--- NOTE | 2022-12-21 10:35 | XRay Report ---
XR chest 1V portable CLINICAL HISTORY: pleural effusions TECHNIQUE: Single frontal radiograph of the chest was obtained. Comparison: Comparison is made to chest radiograph 12/20/2022 FINDINGS: Dual lead pacemaker is seen. Cardiomegaly is noted. The aortic arch is calcified. Prominence and ceph alization of the vasculature is seen. Left retrocardiac opacity is seen. Cannot exclude left pleural effusion. IMPRESSION: 1. Cardiomegaly and mild pulmonary edema. 2. Left retrocardiac opacity may represent atelectasis, pneumonia, and/or aspiration. 3. Cannot exclude left pleural effusion, unchanged from prior exam. ACT 112: Negative or not required by law. Electronically signed by: Andres Ross M.D. 12/21/2022 10:34 AM
--- NOTE | 2022-12-21 12:55 | Cardiology Consultation ---
Date of Consultation December 21, 2022 Assessment & Plan (1) Acute on chronic respiratory failure with hypoxia: (2) Acute on chronic HFrEF (heart failure with reduced ejection fraction): (3) Stage 3a chronic kidney disease (CKD): (4) Persistent atrial fibrillation: (5) Ischemic cardiomyopathy: (6) AICD (automatic cardioverter/defibrillator) present: Plan Patient is an 82-year-old male with known ischemic cardiomyopathy and severe LV dysfunction. Preliminary echo reveals similar findings as the past with ejection fraction 2024% with expanded apical infarct. Presents now with gradual onset congestive heart failure biventricular with associated respiratory failure. Underlying history of persistent atrial fibrillation, chronic hypoxic respiratory failure Plan continue IV diuretics Patient on afterload reduction with combination of hydralazine and nitrates, heart failure indicated beta-cecile with carvedilol Past adverse reaction to amiodarone and spironolactone We will interrogate pacer defibrillator this admission with paced rhythm at 65 suggestive of battery at [facility] Cardiology will continue to follow History of Present Illness Reason for Consultation: Acute on chronic systolic heart failure, hypoxic respiratory failure Requesting Physician: Dr. Merchant Attending Physician: Cooper Merchant MD History of Present Illness Patient is a an 82-year-old male with known issues of 1. Ischemic cardiomyopathy with severe LV dysfunction chronic systolic heart failure 2. Status post biventricular pacemaker/ICD implantation last generator exchange 01/29/2017, [employer] [id number] 3. Persistent atrial fibrillation with past amiodarone induced pulmonary toxicity 4. Atherosclerotic peripheral vascular disease with abdominal aortic aneurysm, 5.4 cm with plans for conservative management with operative risk greater than risk reduction 5. Chronic obstructive lung disease O2 dependent Patient presents now with noted history of gradually increasing fatigue shortness of breath and hypoxia times several months but acutely worsening this past week resulting in ER presentation with hypoxia and volume overload. Patient begun on IV furosemide with diuresis since admission currently clinically improving. He denies any chest pains tachypalpitations syncope or near syncope. Notes no bleeding difficulties and remains chronically anticoagulated with warfarin Uses oxygen at home with increasing demands recently Very sedentary due to underlying medical issues. Weight has trended slightly upward with some increase in edema. Allergies Allergy/AdvReac Type Severity Reaction Status Date / Time spironolactone Allergy Intermediate LIP Verified 02/26/17 08:27 SWELLING Home Medications Medication Instructions Recorded Confirmed Type carvedilol 25 mg tablet 25 mg PO BID ##0 01/21/11 12/20/22 History finasteride 5 mg tablet 5 mg PO PM ##0 01/21/11 12/20/22 History simvastatin 10 mg tablet 10 mg PO PM ##0 01/21/11 12/20/22 History terazosin 5 mg capsule 5 mg PO HS ##0 01/21/11 12/20/22 History POTASSIUM CHLORIDE MICROENCAPS 1 tab PO 2XWK 30 days #0 tabs 05/15/16 12/20/22 History (POTASSIUM CHLORIDE ER) hydralazine 25 mg tablet 25 mg PO TID ##0 05/15/16 12/20/22 History isosorbide mononitrate 30 mg 30 mg PO QAM 30 days #30 tabs 05/15/16 12/20/22 History tablet,extended release 24 hr Nitroglycerin (Nitrostat) 1 tab sublingual UD #100 tabs 06/05/16 12/20/22 History aspirin 81 mg tablet,delayed 81 mg PO QAM ##0 06/05/16 12/20/22 History release furosemide 40 mg tablet 40 mg PO QAM #0 tabs 01/01/17 12/20/22 History levothyroxine 75 mcg tablet 75 mcg PO DAILY 30 days #30 tabs 02/26/17 12/20/22 History warfarin 5 mg tablet 5 mg PO DIRECTED 12/20/22 12/20/22 History Patient History Medical History HFrEF (heart failure with reduced ejection fraction) HLD (hyperlipidemia) Paroxysmal atrial fibrillation Persistent atrial fibrillation Stage 3a chronic kidney disease (CKD) Social History Smoking Status: Never smoker Hx Alcohol Use: Yes Alcohol type: beer Hx Substance Use: No Preferred Language: [place] Communication Ability: Effective Workforce Planning Analyst Required: No Beliefs That Will Affect Care: None Current Living Situation: Spouse Current Living Situation Comment: lives with Milvia Other Information That Helps Us Care for You: No Feels Safe at Home: Yes Safety Concerns: Feels Safe At This Time Assistive Devices: None Review of Systems Review of Systems: All systems reviewed & are unremarkable except as noted in HPI & below Physical Exam Constitutional: + obese; no acute distress Eyes: PERRL, conjunctivae normal, anicteric sclerae Neck: + thick neck Respiratory: Rales bilateral and diminished breath sounds left base Cardiovascular: Rate/Rhythm: regular rate and regular rhythm (Ventricular paced) Heart Sounds: + murmur (Grade 2 or 6 systolic) Vessels: + JVD Extremities: + edema Chest (Breasts): Chest: + pacemaker Gastrointestinal (Abdomen): Increased abdominal girth Skin: no rashes, warm and dry Results & Data Vital Signs (Past 12 Hours) Vital Signs Temp Pulse Pulse Pulse Resp BP BP 12/21/22 11:07 36.6 C 65 18 116/68 12/21/22 08:00 12/21/22 07:32 36.5 C 60 16 108/60 12/21/22 07:30 61 12/21/22 03:03 36.6 C 60 18 95/58 L Pulse Ox O2 Del Method O2 Flow Rate 12/21/22 11:07 92 Nasal Cannula 3 12/21/22 08:00 Nasal Cannula 3 12/21/22 07:32 95 Oxymask 3 12/21/22 07:30 12/21/22 03:03 95 Nasal Cannula 3 Laboratory Results Laboratory Results - last 24 hr 12/20/22 12/20/22 12/20/22 16:05 16:05 16:05 WBC 5.07 RBC 3.21 L Hgb 10.4 L Hct 33.5 L MCV 104.4 H MCH 32.4 MCHC 31.0 L RDW Std Deviation 49.4 H RDW Coeff of Alba 12.9 Plt Count 115 L MPV 10.6 Immature Gran % (Auto) 0.4 Neut % (Auto) 75.5 Lymph % (Auto) 12.0 [place] % (Auto) 8.1 Eos % (Auto) 3.4 Baso % (Auto) 0.6 Neut # (Auto) 3.83 Lymph # (Auto) 0.61 L [place] # (Auto) 0.41 Eos # (Auto) 0.17 Baso # (Auto) 0.03 Immature Gran # (Auto) 0.02 PT 23.0 H INR 2.2 H APTT 35.9 H PTT Ratio 1.3 Sodium 143 Potassium 4.2 Chloride 99 Carbon Dioxide 40 H Anion Gap 4 BUN 29 H Creatinine 1.28 Est Cr Clr Drug Dosing 42.3 Est GFR ( Amer) 60.0 Est GFR (Non-Af Amer) 51.8 BUN/Creatinine Ratio 22.7 H Glucose 98 Calcium 9.1 Magnesium Total Bilirubin 0.8 AST 23 ALT 19 Alkaline Phosphatase 58 Troponin I High Sens 22.1 H Total Protein 7.6 Albumin 4.3 Globulin 3.3 Albumin/Globulin Ratio 1.3 Urine Color Urine Appearance Urine pH Ur Specific Unity Urine Protein Urine Glucose (UA) Urine Ketones Urine Blood Urine Nitrite Urine Bilirubin Urine Urobilinogen Ur Leukocyte Esterase SARS-CoV-2, RNA, NAAT 12/20/22 12/21/22 12/21/22 18:23 05:40 07:05 WBC 5.62 RBC 3.09 L Hgb 10.1 L Hct 32.4 L MCV 104.9 H MCH 32.7 MCHC 31.2 L RDW Std Deviation 49.6 H RDW Coeff of Alba 13.0 Plt Count 110 L MPV 10.5 Immature Gran % (Auto) Neut % (Auto) Lymph % (Auto) [place] % (Auto) Eos % (Auto) Baso % (Auto) Neut # (Auto) Lymph # (Auto) [place] # (Auto) Eos # (Auto) Baso # (Auto) Immature Gran # (Auto) PT INR APTT PTT Ratio Sodium Potassium Chloride Carbon Dioxide Anion Gap BUN Creatinine Est Cr Clr Drug Dosing Est GFR ( Amer) Est GFR (Non-Af Amer) BUN/Creatinine Ratio Glucose Calcium Magnesium Total Bilirubin AST ALT Alkaline Phosphatase Troponin I High Sens Total Protein Albumin Globulin Albumin/Globulin Ratio Urine Color Yellow Urine Appearance Clear Urine pH 5.0 Ur Specific Unity 1.014 Urine Protein Negative Urine Glucose (UA) Negative Urine Ketones Negative Urine Blood Negative Urine Nitrite Negative Urine Bilirubin Negative Urine Urobilinogen Negative Ur Leukocyte Esterase Negative SARS-CoV-2, RNA, NAAT NEGATIVE 12/21/22 12/21/22 07:05 07:05 WBC RBC Hgb Hct MCV MCH MCHC RDW Std Deviation RDW Coeff of Alba Plt Count MPV Immature Gran % (Auto) Neut % (Auto) Lymph % (Auto) [place] % (Auto) Eos % (Auto) Baso % (Auto) Neut # (Auto) Lymph # (Auto) [place] # (Auto) Eos # (Auto) Baso # (Auto) Immature Gran # (Auto) PT 25.0 H INR 2.4 H APTT PTT Ratio Sodium 142 Potassium 3.8 Chloride 98 Carbon Dioxide 42 H* Anion Gap 2 L BUN 28 H Creatinine 1.26 Est Cr Clr Drug Dosing 52.7 Est GFR ( Amer) 61.2 Est GFR (Non-Af Amer) 52.8 BUN/Creatinine Ratio 22.2 H Glucose 103 H Calcium 9.0 Magnesium 2.3 Total Bilirubin 0.8 AST 21 ALT 20 Alkaline Phosphatase 55 Troponin I High Sens Total Protein 7.2 Albumin 4.0 Globulin 3.2 Albumin/Globulin Ratio 1.3 Urine Color Urine Appearance Urine pH Ur Specific Unity Urine Protein Urine Glucose (UA) Urine Ketones Urine Blood Urine Nitrite Urine Bilirubin Urine Urobilinogen Ur Leukocyte Esterase SARS-CoV-2, RNA, NAAT
[2022-12-21] MEDS: WARFARIN SOD 5 MG TAB PO SCH (17:04)
--- NOTE | 2022-12-21 17:05 | Electrocardiogram Report ---
Test Reason : Blood Pressure : / mmHG Vent. Rate : 065 BPM Atrial Rate : 050 BPM P-R Int : 000 ms QRS Dur : 144 ms QT Int : 510 ms P-R-T Axes : 000 253 080 degrees QTc Int : 530 ms Ventricular-paced rhythm Biventricular pacemaker detected Abnormal ECG When compared with ECG of 21-MAR-2020 17:54, No significant change was found Confirmed by Jaylon Friend ([id number]) on 12/21/2022 5:05:11 PM Referred By: Confirmed By:Jaylon Friend
--- NOTE | 2022-12-21 18:39 | Hospitalist Progress Note ---
Date of Service December 21, 2022 Assessment & Plan (1) Acute on chronic respiratory failure with hypoxia: Plan: d/t acute on chronic HFrEF wean oxygen to baseline (2L NC) (2) Acute on chronic HFrEF (heart failure with reduced ejection fraction): Plan: Unable to tolerate IV lasix due to myoclonic twitches Will try bumex 1mg IV BID continue hydralazine, imdur, coreg with hold parameters Appreciate Cardiology input (3) Persistent atrial fibrillation: Plan: rate controlled continue Carvedilol 25 mg po BID anticoagulated with Warfarin, continue home dose INR therapeutic 2.4 (4) CAD (coronary artery disease): Plan: continue ASA, statin therapy, BB (Carvedilol), Isosorbide Mononitrate trop mildly elevated, consistent with strain and poor clearance, not consistent with ACS (5) Stage 3a chronic kidney disease (CKD): Plan: Cr 1.28, eGFR 52, baseline avoid nephrotoxins and hypotension (6) Hypothyroidism: Plan: continue Levothyroxine 75 mcg daily f/u TSH (7) BPH (benign prostatic hypertrophy): Plan: no complaints at this time continue Finasteride 5 mg daily, Terazosin 5 mg hs (8) HTN (hypertension): Plan: continue carvedilol 25 mg BID, Hydralazine 25 mg TID, Isosorbide mononitrate 30 mg daily, Terazosin 5 mg hs Monitor BP with diuresis (9) HLD (hyperlipidemia): Plan: continue statin therapy no need to check a lipid panel at this time (10) Pacemaker: Admission and Anticipated Discharge Date Admission Date: December 20, 2022 Subjective Still with leg swelling Refused IV lasix due to intolerance (patient and reports that lasix in IV form causes him to have muscle twitches/jerks) Agreeable to try alternate medicine Review of Systems Review of Systems: as above Physical Exam Physical Exam: sitting in chair, hard of hearing, no acute distress Respiratory: diminished at bases, no wheezing/rhonchi/rales Cardiovascular: regular rate and rhythm, no murmurs/rubs Gastrointestinal (Abdomen): soft,non tender Musculoskeletal: 1+ edema bilateral lower extremity Neurologic: awake,alert, spontaneously moving extremities, hard of hearing, somewhat poor historian +myoclonic jerks Results & Data Results & Data Vital Signs (Past 12 Hours) Vital Signs Temp Pulse Pulse Resp BP Pulse Ox O2 Del Method 12/21/22 15:18 60 12/21/22 15:04 37.0 C 69 16 101/63 94 Nasal Cannula 12/21/22 11:07 36.6 C 65 18 116/68 92 Nasal Cannula 12/21/22 08:00 Nasal Cannula 12/21/22 07:32 36.5 C 60 16 108/60 95 Oxymask 12/21/22 07:30 61 O2 Flow Rate 12/21/22 15:18 12/21/22 15:04 3 12/21/22 11:07 3 12/21/22 08:00 3 12/21/22 07:32 3 12/21/22 07:30
[2022-12-21] MEDS: BUMETANIDE 1 MG in SYRINGE 0 ML IV SCH (19:23)
[2022-12-21] MEDS: DOCUSATE SODIUM/SENNA 50/8.6MG TAB PO SCH (20:05)
[2022-12-21] MEDS: SIMVASTATIN 10 MG TAB PO SCH (20:05)
[2022-12-21] MEDS: FINASTERIDE 5 MG TAB PO SCH (20:06)
[2022-12-21] MEDS: TERAZOSIN HCL 5 MG CAP PO SCH (20:06)
[2022-12-21] MEDS ORDERED: FUROSEMIDE 40 MG/4 ML VIAL IV SCH (21:00)
[2022-12-22] MEDS: LEVOTHYROXINE SODIUM 75 MCG TABLET PO SCH (05:58)
[2022-12-22 06:25] LABS: BUN Creatinine Ratio 23.5 (10-20); Calcium 8.6 mg/dl (8.6-10.3); Creatinine Clr Calc Pharmacy 57.7 ml/min; Est GFR (African American) 68.3 ml/min; Est GFR (Non-African American) 58.9 ml/min; Magnesium 2.2 mg/dl (1.7-2.4); Potassium 3.7 mmol/L (3.5-5.1)
[2022-12-22 06:38] LABS: Hematocrit (blood only) 30.6 % (42.0-52.0); Hemoglobin 9.8 g/dl (14.0-18.0); Mean Corpuscular Hemoglobin 33.1 pg (25.0-34.0); Mean Corpuscular Volume 103.4 fL (80.0-100.0); Mean Platelet Volume 10.5 fL (9.4-12.4); Platelet Count 87 K/uL (130-400); RDW Coefficient of Variation 13.1 % (11.5-14.5); Red Blood Count 2.96 M/uL (4.70-6.10); White Blood Count 4.69 K/ul (4.8-10.8)
[2022-12-22] MEDS: DOCUSATE SODIUM/SENNA 50/8.6MG TAB PO SCH ×2 (08:01→20:43)
[2022-12-22] MEDS: BUMETANIDE 1 MG in SYRINGE 0 ML IV SCH ×2 (08:01→16:24)
[2022-12-22] MEDS: hydrALAZINE HCL 25 MG TAB PO SCH ×3 (08:01→20:46)
[2022-12-22] MEDS: ASPIRIN 81 MG ECTAB PO SCH (08:02)
[2022-12-22] MEDS: ISOSORBIDE MONO EXTENDED REL 30 MG TABCR PO SCH (08:02)
[2022-12-22] MEDS: carvediloL 25 MG TAB PO SCH ×2 (08:02→20:42)
[2022-12-22] MEDS: POTASSIUM CHLORIDE CRTAB 20 MEQ TABCR PO SCH ×2 (08:04→20:43)
[2022-12-22] MEDS: MAGNESIUM OXIDE 400 MG TAB PO SCH (08:35)
--- NOTE | 2022-12-22 09:56 | Cardiology Progress Note ---
Date of Service December 22, 2022 Assessment & Plan (1) Acute on chronic respiratory failure with hypoxia: (2) Acute on chronic HFrEF (heart failure with reduced ejection fraction): (3) Stage 3a chronic kidney disease (CKD): (4) Persistent atrial fibrillation: (5) Ischemic cardiomyopathy: (6) AICD (automatic cardioverter/defibrillator) present: Plan Patient is an 82-year-old male with known ischemic cardiomyopathy and severe LV dysfunction. Preliminary echo reveals similar findings as the past with ejection fraction 2024% with expanded apical infarct. Presents now with gradual onset congestive heart failure biventricular with associated respiratory failure. Underlying history of persistent atrial fibrillation, chronic hypoxic respiratory failure Plan continue IV diuretics Patient on afterload reduction with combination of hydralazine and nitrates, heart failure indicated beta-cecile with carvedilol Past adverse reaction to amiodarone and spironolactone We will interrogate pacer defibrillator this admission with paced rhythm at 65 suggestive of battery at [facility] Cardiology will continue to follow 12/22/2022 Patient improving slowly after diuresis. Still diminished breath sounds at the left base of lung Plan: Continue IV Bumex as ordered Continue oxygen supplementation, do not protocol Chest x-ray in a.m. Hold warfarin till size and progress of left pleural effusion reviewed Pacemaker interrogation in a.m. Admission and Anticipated Discharge Date Admission Date: December 20, 2022 Subjective Patient seen and examined, chart, medications, telemetry reviewed. Telemetry reveals paced rhythm at 65 to 70 bpm Feels somewhat improved today, brighter affect Gradual diuresis over the past 2 days weight down 2 kg Still with edema in lower extremities and abdominal distention Decreased breath sounds left base Physical Exam Constitutional: + obese; no acute distress Eyes: PERRL, conjunctivae normal, anicteric sclerae Neck: + thick neck Respiratory: Auscultation: + diminished lung sounds (Left base) Cardiovascular: Rate/Rhythm: regular rate and regular rhythm (Ventricular paced) Heart Sounds: + murmur (Grade 2 or 6 systolic) Vessels: + JVD Extremities: + edema Chest (Breasts): Chest: + pacemaker Skin: no rashes, warm and dry Results & Data Vital Signs (Past 12 Hours) Vital Signs Temp Pulse Pulse Resp BP BP Pulse Ox 12/22/22 07:57 36.7 C 65 18 116/69 92 12/22/22 07:16 62 12/22/22 03:19 36.6 C 60 20 99/60 L 93 12/21/22 23:04 36.9 C 64 18 107/65 94 12/21/22 22:00 62 O2 Del Method O2 Flow Rate 12/22/22 07:57 Nasal Cannula 3 12/22/22 07:16 12/22/22 03:19 Nasal Cannula 3 12/21/22 23:04 Nasal Cannula 3 12/21/22 22:00 Laboratory Results Laboratory Results - last 24 hr 12/22/22 12/22/22 05:29 05:29 WBC 4.69 L RBC 2.96 L Hgb 9.8 L Hct 30.6 L MCV 103.4 H MCH 33.1 MCHC 32.0 RDW Std Deviation 49.0 H RDW Coeff of Alba 13.1 Plt Count 87 L MPV 10.5 Sodium 140 Potassium 3.7 Chloride 98 Carbon Dioxide 40 H Anion Gap 2 L BUN 27 H Creatinine 1.15 Est Cr Clr Drug Dosing 57.7 Est GFR ( Amer) 68.3 Est GFR (Non-Af Amer) 58.9 BUN/Creatinine Ratio 23.5 H Glucose 107 H Calcium 8.6 Magnesium 2.2
--- NOTE | 2022-12-22 10:04 | Hospitalist Progress Note ---
Date of Service December 22, 2022 Assessment & Plan (1) Acute on chronic respiratory failure with hypoxia: Plan: d/t acute on chronic HFrEF wean oxygen to baseline (2L NC) as tolerated (2) Acute on chronic HFrEF (heart failure with reduced ejection fraction): Plan: Unable to tolerate IV lasix due to myoclonic twitches Tolerating IV bumex. Will continue bumex 1mg IV BID continue hydralazine, imdur, coreg with hold parameters Appreciate Cardiology input (3) Persistent atrial fibrillation: Plan: rate controlled continue Carvedilol 25 mg po BID anticoagulated with Warfarin, continue home dose INR therapeutic 2.4 yesterday. Repeat CXR tomorrow to evaluate pleural effusion, holding coumadin for now per Cardiology. In the event he needs thoracentesis. (4) CAD (coronary artery disease): Plan: continue ASA, statin therapy, BB (Carvedilol), Isosorbide Mononitrate trop mildly elevated, consistent with strain and poor clearance, not consistent with ACS (5) Stage 3a chronic kidney disease (CKD): Plan: Cr 1.28, eGFR 52, baseline avoid nephrotoxins and hypotension (6) Hypothyroidism: Plan: continue Levothyroxine 75 mcg daily f/u TSH (7) BPH (benign prostatic hypertrophy): Plan: no complaints at this time continue Finasteride 5 mg daily, Terazosin 5 mg hs (8) HTN (hypertension): Plan: continue carvedilol 25 mg BID, Hydralazine 25 mg TID, Isosorbide mononitrate 30 mg daily, Terazosin 5 mg hs Monitor BP with diuresis (9) HLD (hyperlipidemia): Plan: continue statin therapy no need to check a lipid panel at this time (10) Pacemaker: Admission and Anticipated Discharge Date Admission Date: December 20, 2022 Subjective Tolerated IV bumex. Myoclonic twitches have subsided significantly Legs still swollen Asking when he can return home, his does not drive and she has no way to get around when he is here Review of Systems Review of Systems: as above Physical Exam Physical Exam: Pleasant, comfortable, no acute distress Respiratory: diminished at bases, no wheezing/rhonchi Cardiovascular: regular rate and rhythm, no murmurs/rubs/gallops Gastrointestinal (Abdomen): +increased girth, soft, non tender Musculoskeletal: 1+ edema bilaterally Neurologic: awake, alert, hard of hearing, spontaneously moving extremities Results & Data Results & Data Vital Signs (Past 12 Hours) Vital Signs Temp Pulse Pulse Resp BP BP Pulse Ox 12/22/22 07:57 36.7 C 65 18 116/69 92 12/22/22 07:16 62 12/22/22 03:19 36.6 C 60 20 99/60 L 93 12/21/22 23:04 36.9 C 64 18 107/65 94 O2 Del Method O2 Flow Rate 12/22/22 07:57 Nasal Cannula 3 12/22/22 07:16 12/22/22 03:19 Nasal Cannula 3 12/21/22 23:04 Nasal Cannula 3
[2022-12-22] MEDS ORDERED: WARFARIN SOD 7.5 MG TAB PO SCH (16:00)
[2022-12-22] MEDS: FINASTERIDE 5 MG TAB PO SCH (20:43)
[2022-12-22] MEDS: SIMVASTATIN 10 MG TAB PO SCH (20:43)
[2022-12-22] MEDS: TERAZOSIN HCL 5 MG CAP PO SCH (20:44)
[2022-12-23] MEDS: LEVOTHYROXINE SODIUM 75 MCG TABLET PO SCH (06:10)
[2022-12-23 06:56] LABS: Hematocrit (blood only) 33.1 % (42.0-52.0); Hemoglobin 10.4 g/dl (14.0-18.0); Mean Corpuscular Hemoglobin 32.6 pg (25.0-34.0); Mean Corpuscular Hgb Conc 31.4 g/dL (32.0-36.0); Mean Corpuscular Volume 103.8 fL (80.0-100.0); Platelet Count 99 K/uL (130-400); RDW Coefficient of Variation 12.8 % (11.5-14.5); RDW Standard Deviation 48.4 fL (36.4-46.3); Red Blood Count 3.19 M/uL (4.70-6.10); White Blood Count 4.66 K/ul (4.8-10.8)
[2022-12-23 07:18] LABS: INR 2.1 (0.9-1.1); Prothrombin Time 22.3 Seconds (9.0-12.0)
[2022-12-23 07:24] LABS: BUN Creatinine Ratio 21.6 (10-20); Calcium 9.1 mg/dl (8.6-10.3); Creatinine Clr Calc Pharmacy 52.7 ml/min; Est GFR (African American) 61.8 ml/min; Est GFR (Non-African American) 53.3 ml/min; Magnesium 2.3 mg/dl (1.7-2.4)
[2022-12-23] MEDS: BUMETANIDE 1 MG in SYRINGE 0 ML IV SCH ×2 (09:12→16:33)
[2022-12-23] MEDS: ASPIRIN 81 MG ECTAB PO SCH (09:12)
[2022-12-23] MEDS: carvediloL 25 MG TAB PO SCH ×2 (09:12→19:58)
[2022-12-23] MEDS: DOCUSATE SODIUM/SENNA 50/8.6MG TAB PO SCH ×2 (09:13→19:58)
[2022-12-23] MEDS: hydrALAZINE HCL 25 MG TAB PO SCH ×3 (09:13→19:57)
[2022-12-23] MEDS: ISOSORBIDE MONO EXTENDED REL 30 MG TABCR PO SCH (09:13)
[2022-12-23] MEDS: POTASSIUM CHLORIDE CRTAB 20 MEQ TABCR PO SCH ×2 (09:14→19:58)
[2022-12-23] MEDS: MAGNESIUM OXIDE 400 MG TAB PO SCH (09:14)
--- NOTE | 2022-12-23 11:20 | XRay Report ---
TWO VIEW CHEST CLINICAL HISTORY: Pleural effusion. FINDINGS: PA and lateral chest radiographs are compared to study dated 12/21/2022. A multilead cardiac AICD is unchanged in position. The heart is enlarged noting atherosclerotic calcification of the tho racic aorta. There is pulmonary vascular congestion with interstitial edema. There are left larger th an right pleural effusions with dependent consolidation. No pneumothorax is seen. The skeletal struct ures are osteopenic. There are chronic/healed right posterior rib fractures. IMPRESSION: 1. Cardiomegaly and AICD with evidence of congestive failure and pulmonary edema. This is similar to yesterday. 2. Left larger than right pleural effusions with dependent consolidation. ACT 112: Negative or not required by law. Electronically signed by: Zhang Simpson M.D. 12/23/2022 11:19 AM
--- NOTE | 2022-12-23 11:51 | Cardiology Progress Note ---
Date of Service December 23, 2022 Assessment & Plan (1) Acute on chronic respiratory failure with hypoxia: (2) Acute on chronic HFrEF (heart failure with reduced ejection fraction): (3) Stage 3a chronic kidney disease (CKD): (4) Persistent atrial fibrillation: (5) Ischemic cardiomyopathy: (6) AICD (automatic cardioverter/defibrillator) present: (7) Pleural effusion, left: Plan 82-year-old male with decompensated systolic heart failure, persistent left pleural effusion in the setting of nonischemic cardiomyopathy. Slowly responded to IV diuretic Plan: Reduce hydralazine to 12.5 mg 3 times per day given transient hypotension Continue IV Bumex Defibrillator interrogation today May require thoracentesis to aid in oxygenation. Warfarin on hold Admission and Anticipated Discharge Date Admission Date: December 20, 2022 Subjective Patient seen and examined, chart, medications, telemetry reviewed. No arrhythmias overnight. Persistently paced rate 6065 Feels less breathless though without profound diuresis by I's and O's Tolerating IV Bumex. Abdominal distention lower extremity edema improving slowly Carvedilol and hydralazine held yesterday due to parameter Review of Systems Review of Systems: All systems reviewed & are unremarkable except as noted in Subjective Physical Exam Constitutional: no acute distress and not obese Eyes: PERRL, conjunctivae normal, anicteric sclerae ENMT: external ear and nose normal, oropharynx normal Neck: trachea midline, no thyromegaly + thick neck Respiratory: Auscultation: + diminished lung sounds (Left base) Cardiovascular: Rate/Rhythm: regular rhythm (Ventricular paced) Vessels: no JVD Extremities: + edema Gastrointestinal (Abdomen): normal bowel sounds, soft, nontender, no hepatosplenomegaly Less distended today Results & Data Vital Signs (Past 12 Hours) Vital Signs Temp Pulse Pulse Resp BP Pulse Ox O2 Del Method 12/23/22 11:27 36.5 C 60 18 104/62 92 Nasal Cannula 12/23/22 07:32 36.7 C 65 18 110/71 96 Nasal Cannula 12/23/22 07:35 Nasal Cannula 12/23/22 05:59 67 12/23/22 03:31 36.6 C 61 18 111/69 95 Nasal Cannula 12/23/22 00:37 60 O2 Flow Rate 12/23/22 11:27 3 12/23/22 07:32 3 12/23/22 07:35 3 12/23/22 05:59 12/23/22 03:31 3 12/23/22 00:37 Laboratory Results Laboratory Results - last 24 hr 12/23/22 12/23/22 12/23/22 06:03 06:03 06:03 WBC 4.66 L RBC 3.19 L Hgb 10.4 L Hct 33.1 L MCV 103.8 H MCH 32.6 MCHC 31.4 L RDW Std Deviation 48.4 H RDW Coeff of Alba 12.8 Plt Count 99 L MPV 11.0 PT 22.3 H INR 2.1 H Sodium 141 Potassium 4.0 Chloride 96 L Carbon Dioxide 43 H* Anion Gap 2 L BUN 27 H Creatinine 1.25 Est Cr Clr Drug Dosing 52.7 Est GFR ( Amer) 61.8 Est GFR (Non-Af Amer) 53.3 BUN/Creatinine Ratio 21.6 H Glucose 106 H Calcium 9.1 Magnesium 2.3 TSH 12/23/22 06:03 WBC RBC Hgb Hct MCV MCH MCHC RDW Std Deviation RDW Coeff of Alba Plt Count MPV PT INR Sodium Potassium Chloride Carbon Dioxide Anion Gap BUN Creatinine Est Cr Clr Drug Dosing Est GFR ( Amer) Est GFR (Non-Af Amer) BUN/Creatinine Ratio Glucose Calcium Magnesium TSH 1.810
--- NOTE | 2022-12-23 13:14 | Hospitalist Progress Note ---
Date of Service December 23, 2022 Assessment & Plan (1) Acute on chronic respiratory failure with hypoxia: Plan: d/t acute on chronic HFrEF wean oxygen to baseline (2L NC) as tolerated 2 view CXR today again shows pleural effusion. Will ask for Pulmonology consult to evaluate for thoracentesis. Coumadin on hold since yesterday (2) Acute on chronic HFrEF (heart failure with reduced ejection fraction): Plan: Unable to tolerate IV lasix due to myoclonic twitches Tolerating IV bumex. Will continue bumex 1mg IV BID--> diuresis being managed by Cardiology continue hydralazine--dose decreased today, imdur, coreg with hold parameters Appreciate Cardiology input--Management per Cardiology (3) Persistent atrial fibrillation: Plan: rate controlled continue Carvedilol 25 mg po BID anticoagulated with Warfarin, continue home dose Holding coumadin (4) CAD (coronary artery disease): Plan: continue ASA, statin therapy, BB (Carvedilol), Isosorbide Mononitrate trop mildly elevated, consistent with strain and poor clearance, not consistent with ACS (5) Stage 3a chronic kidney disease (CKD): Plan: Cr 1.28, eGFR 52, baseline avoid nephrotoxins and hypotension (6) Hypothyroidism: Plan: continue Levothyroxine 75 mcg daily f/u TSH (7) BPH (benign prostatic hypertrophy): Plan: no complaints at this time continue Finasteride 5 mg daily, Terazosin 5 mg hs (8) HTN (hypertension): Plan: Home: carvedilol 25 mg BID, Hydralazine 25 mg TID, Isosorbide mononitrate 30 mg daily, Terazosin 5 mg hs Yesterday episode of hypotension. Hydralazine reduced today (9) HLD (hyperlipidemia): Plan: continue statin therapy no need to check a lipid panel at this time (10) Pacemaker: Plan: Plan for interrogation today Plan Disposition- from home. PT alfie noted. Admission and Anticipated Discharge Date Admission Date: December 20, 2022 Subjective Still with leg swelling Only net (-) 810 cc yesterday and (-) 215 cc so far today Waiting for pacemaker interrogation. Asking when he can go home Review of Systems Review of Systems: as above Physical Exam Physical Exam: Sitting in chair at bedside, pleasant and comfortable, hard of hearing Respiratory: diminished at bases, no accessory muscle use, no wheezing Cardiovascular: regular rate and rhythm Gastrointestinal (Abdomen): soft Musculoskeletal: 1+ edema to knees bilaterally Neurologic: awake, alert, answers questions appropriately but very hard of hearing Results & Data Results & Data Vital Signs (Past 12 Hours) Vital Signs Temp Pulse Pulse Resp BP Pulse Ox O2 Del Method 12/23/22 11:27 36.5 C 60 18 104/62 92 Nasal Cannula 12/23/22 07:32 36.7 C 65 18 110/71 96 Nasal Cannula 12/23/22 07:35 Nasal Cannula 12/23/22 05:59 67 12/23/22 03:31 36.6 C 61 18 111/69 95 Nasal Cannula O2 Flow Rate 12/23/22 11:27 3 12/23/22 07:32 3 12/23/22 07:35 3 12/23/22 05:59 12/23/22 03:31 3
--- NOTE | 2022-12-23 14:45 | Pulmonary Consultation ---
EMR reviewed. Discussed wtih PA and agree with AP as noted. Pt not interested in procedures at this time. Would need INR less than 1.6 for thoracentesis. Can follow up with CXr with PCM or cardiology and consider outpt pulmonary follow up if effusion persists, is symptomatic, and patient desires intervention. Pulmonary will sign off at this time. Please call if questions. Date of Consultation December 23, 2022 Assessment & Plan (1) Pleural effusion, left: (2) Acute on chronic respiratory failure with hypoxia: (3) Acute on chronic HFrEF (heart failure with reduced ejection fraction): (4) Stage 3a chronic kidney disease (CKD): (5) Persistent atrial fibrillation: (6) Chronic anticoagulation: Plan Attending: Dr. Cardozo Impression: This is an 82-year-old male that presented 12/20/2022 with acute on chronic respiratory failure. Patient was found to have increased oxygen requirements. Imaging examination revealed acute on chronic heart failure. Patient is typically on furosemide 40 mg p.o. daily. This was held and patient was started on Bumex. He continues on IV diuretics at this time. The pulmonary care service was consulted to evaluate for thoracentesis. Patient is anticoagulated with an INR of 2.1. Warfarin is currently on hold. Recommendations: 1. Bilateral pleural effusions left greater than right: * Patient is found to have bilateral pleural effusions on exam with imaging. Left is greater than right. Right is very minimal. * Bedside ultrasound does show an approachable pocket of pleural fluid * Early course of this hospitalization, patient has a cumulative output of 1 L * At this point, patient's INR is 2.1. Inasmuch as patient does not have acute complaints, would hold off on thoracentesis at this time and continue to diurese * Patient is emphatic that he feels better than he typically does at home and is planning on being discharged home tomorrow * Advised the patient that should his breathing worsen we could always consider an outpatient thoracentesis should this be required. While patient is agreeable to thoracentesis if it is needed, he prefers to continue with diuresis and be discharged as soon as possible. Will defer to the hospitalist team for discharge planning. 2. Acute on chronic shortness of breath: * Most likely multifactorial to pleural effusion, atrial fibrillation, heart failure, stage III CKD, obesity, deconditioning, and age * Continue work with PT/OT and increase activity as tolerated. Patient is encouraged to ambulate in the hallways as tolerated * Due to the pleural effusion, patient does have noted atelectasis on thoracic ultrasound. Patient would benefit from ambulation as well as incentive spirometry. Out of bed to chair as tolerated 3. Acute on chronic respiratory failure: * Lifetime non-smoker with no prior pulmonary disorder * Patient has been on supplemental oxygen is currently 2 L/min at home. Currently saturating at 92% on 2 L/min via nasal cannula in the hospital room * Continue with supplemental oxygen to maintain SaO2 greater than 90% At this time, no indication for thoracentesis secondary to INR of 2.1 and patient reporting that he is at baseline. The pulmonary service will be glad to assist should the patient fail to have appropriate diuresis. Please refer to Dr. Cardozo's addendum for further recommendations and corrections. History of Present Illness Reason for Consultation: Left pleural effusion Requesting Physician: Dr. Merchant Attending Physician: Cooper Merchant MD History of Present Illness Attending: Dr. Cardozo This is an 82-year-old male with a past medical history including stage III chronic failure, persistent atrial fibrillation on anticoagulation with warfarin, heart failure with reduced ejection fraction, chronic pedal edema, CAD, ischemic cardiomyopathy, AAA, history of TIA, hypothyroidism, BPH, hypertension, status post pacemaker placement with AICD. Patient presented for admission 12/20/2022 with acute on chronic respiratory failure with hypoxia. Patient is typically on 2 L/min via nasal cannula at home. Patient states that this has been developing over several months and has improved somewhat with diuresis. Diuretics comprised of furosemide 40 mg p.o. daily. proBNP was not checked this hospital admission. Creatinine is stable and has not bumped this admission. Currently 1.25 mg/[place]. BUN on admission was 29 and is currently at 27. Patient is down 1 L since admission. Current weight 94.9 kg. This was performed on a standing scale. Furosemide has been held for this admission. Patient is currently on bumetanide (Bumex) 1 mg IV twice daily. He appears to be slowly responding with IV diuretics. Dr. Aguayo's note from today he suggested the patient may benefit from thoracentesis to aid in oxygenation. Warfarin has been placed on hold. Patient states that he feels better than baseline right now. He is currently on 2 L via nasal cannula and saturating 92%. Patient states that he is going home tomorrow. Currently patient has no acute respiratory complaints. Lifelong non-smoker No prior history of thoracentesis or pleural effusion that the patient is aware of Patient denies other pulmonary disease or prior status. Allergies Allergy/AdvReac Type Severity Reaction Status Date / Time spironolactone Allergy Intermediate LIP Verified 02/26/17 08:27 SWELLING Home Medications Medication Instructions Recorded Confirmed Type carvedilol 25 mg tablet 25 mg PO BID ##0 01/21/11 12/20/22 History finasteride 5 mg tablet 5 mg PO PM ##0 01/21/11 12/20/22 History simvastatin 10 mg tablet 10 mg PO PM ##0 01/21/11 12/20/22 History terazosin 5 mg capsule 5 mg PO HS ##0 01/21/11 12/20/22 History POTASSIUM CHLORIDE MICROENCAPS 1 tab PO 2XWK 30 days #0 tabs 05/15/16 12/20/22 History (POTASSIUM CHLORIDE ER) hydralazine 25 mg tablet 25 mg PO TID ##0 05/15/16 12/20/22 History isosorbide mononitrate 30 mg 30 mg PO QAM 30 days #30 tabs 05/15/16 12/20/22 History tablet,extended release 24 hr Nitroglycerin (Nitrostat) 1 tab sublingual UD #100 tabs 06/05/16 12/20/22 History aspirin 81 mg tablet,delayed 81 mg PO QAM ##0 06/05/16 12/20/22 History release furosemide 40 mg tablet 40 mg PO QAM #0 tabs 01/01/17 12/20/22 History levothyroxine 75 mcg tablet 75 mcg PO DAILY 30 days #30 tabs 02/26/17 12/20/22 History warfarin 5 mg tablet 5 mg PO DIRECTED 12/20/22 12/20/22 History Patient History Medical History (Updated 12/23/22 @ 14:34 by Zhang Alvarado PA-C) Chronic anticoagulation Warfarin HFrEF (heart failure with reduced ejection fraction) HLD (hyperlipidemia) Paroxysmal atrial fibrillation Persistent atrial fibrillation Stage 3a chronic kidney disease (CKD) Social History Smoking Status: Never smoker Hx Alcohol Use: Yes Alcohol type: beer Hx Substance Use: No Preferred Language: Syriac Communication Ability: Impaired Doctor Of Nursing Practice Required: No Beliefs That Will Affect Care: None Current Living Situation: Spouse Current Living Situation Comment: lives with Milvia Other Information That Helps Us Care for You: No Feels Safe at Home: Yes Safety Concerns: Feels Safe At This Time Assistive Devices: Oxygen - Continuous Review of Systems Review of Systems: A total of 10 systems was reviewed and is negative other than as listed in the HPI Physical Exam Physical Exam: GENERAL : No acute distress EYES: No icterus, gaze conjugate NOSE: No evidence of epistaxis. Nasal cannula is in place. MOUTH: No lesions or candidiasis NECK: Supple. No appreciation of stridor LUNGS: Diaphragmatic excursion of approximately 6 cm. Slightly decreased breath sounds at the left base. Appreciation of bibasilar crackles. No bronchospasm. No rhonchi. HEART: Regular, rate controlled ABDOMEN: Soft, NT, ND, BS Present EXTREMITIES: Bilateral LE edema, pedal pulses intact and equal bilaterally. Patient with green socks on. NEURO: A&OX3. No focal deficits. Patient able to get out of chair and transfer to bed without difficulty. No slurred speech. Patient does have bilateral hearing loss. Results & Data Results & Data Vital Signs (Past 12 Hours) Vital Signs Temp Pulse Pulse Resp BP Pulse Ox O2 Del Method 12/23/22 13:31 64 121/72 12/23/22 11:27 36.5 C 60 18 104/62 92 Nasal Cannula 12/23/22 07:32 36.7 C 65 18 110/71 96 Nasal Cannula 12/23/22 07:35 Nasal Cannula 12/23/22 05:59 67 12/23/22 03:31 36.6 C 61 18 111/69 95 Nasal Cannula O2 Flow Rate 12/23/22 13:31 12/23/22 11:27 3 12/23/22 07:32 3 12/23/22 07:35 3 12/23/22 05:59 12/23/22 03:31 3 Critical Care Results & Data Vital Signs (Past 12 Hours) Vital Signs Temp Pulse Pulse Resp BP Pulse Ox O2 Del Method 12/23/22 13:31 64 121/72 12/23/22 11:27 36.5 C 60 18 104/62 92 Nasal Cannula 12/23/22 07:32 36.7 C 65 18 110/71 96 Nasal Cannula 12/23/22 07:35 Nasal Cannula 12/23/22 05:59 67 12/23/22 03:31 36.6 C 61 18 111/69 95 Nasal Cannula O2 Flow Rate 12/23/22 13:31 12/23/22 11:27 3 12/23/22 07:32 3 12/23/22 07:35 3 12/23/22 05:59 12/23/22 03:31 3 Lab & Micro Results (Past 24 Hours) RBC 3.19 M/uL (4.70-6.10) L 12/23/22 WBC 4.66 K/ul (4.8-10.8) L 12/23/22 Hgb 10.4 g/dl (14.0-18.0) L 12/23/22 Hct 33.1 % (42.0-52.0) L 12/23/22 MCV 103.8 fL (80.0-100.0) H 12/23/22 MCH 32.6 pg (25.0-34.0) 12/23/22 MCHC 31.4 g/dL (32.0-36.0) L 12/23/22 RDW Standard Deviation 48.4 fL (36.4-46.3) H 12/23/22 RDW Coefficient of Variation 12.8 % (11.5-14.5) 12/23/22 Plt Count 99 K/uL (130-400) L 12/23/22 MPV 11.0 fL (9.4-12.4) 12/23/22 Na 141 mmol/L (136-145) 12/23/22 K 4.0 mmol/L (3.5-5.1) 12/23/22 Cl 96 mmol/L (98-107) L 12/23/22 CO2 43 mmol/L (21-32) H* 12/23/22 Anion Gap 2 (3-11) L 12/23/22 BUN 27 mg/dl (6-23) H 12/23/22 Creatinine 1.25 mg/dl (0.6-1.4) 12/23/22 Estimated GFR ( Amer) 61.8 ml/min 12/23/22 Estimated GFR (Non-Af Amer) 53.3 ml/min 12/23/22 BUN/Creatinine Ratio 21.6 (10-20) H 12/23/22 Glu 106 mg/dl (70-99(Fasting)) H 12/23/22 Ca 9.1 mg/dl (8.6-10.3) 12/23/22 Mg 2.3 mg/dl (1.7-2.4) 12/23/22 06:03 Calcium Level 9.1 mg/dl (8.6-10.3) 12/23/22 06:03 Prothromb Time International Ratio 2.1 (0.9-1.1) H 12/23/22 06 :03 Diagnostic Findings (Past 24 Hours) Chest X-Ray 12/23/22 08:00 TWO VIEW CHEST CLINICAL HISTORY: Pleural effusion. FINDINGS: PA and lateral chest radiographs are compared to study dated 12/21/2022. A multilead cardiac AICD is unchanged in position. The heart is enlarged noting atherosclerotic calcification of the thoracic aorta. There is pulmonary vascular congestion with interstitial edema. There are left larger than right pleural effusions with dependent consolidation. No pneumothorax is seen. The skeletal structures are osteopenic. There are chronic/healed right posterior rib fractures. IMPRESSION: 1. Cardiomegaly and AICD with evidence of congestive failure and pulmonary edema. This is similar to yesterday. 2. Left larger than right pleural effusions with dependent consolidation. ACT 112: Negative or not required by law. Electronically signed by: Zhang Simpson M.D. 12/23/2022 11:19 AM Bedside ultra sound 12/23/2022 I & O Totals 24 Hours 12/22/22 12/23/22 12/24/22 06:59 06:59 06:59 Intake Total 1140 / 1140 1560 / 1560 Output Total 1950 / 1949 1775 / 1775 Balance -810 / -810 -215 / -215 Cumulative 12/20/22 14:59 thru 12/23/22 06:00 Intake Total 3100 Output Total 4125 Balance -1025 RT Ventilator Mngmt (Last Documented) Ventilator Ordered Settings Respiratory Rate 18 12/23/22 11:27 Ventilator - PT Measurements Respiratory Rate 18 PG Care Time/CCT Total # of Minutes Spent Total Time Spent with Patient: Total time spent is greater than 50% in coordination of care (as documented) at patient's floor/unit and/or counseling patient: 60 minutes Coding Level of Care Code 88534 IN/OBS CONSULT LVL 5,80M Diagnoses Pleural effusion, left J90 Acute on chronic respiratory failure with hypoxia J96.21 Acute on chronic HFrEF (heart failure with reduced ejection fraction) I50.23 Stage 3a chronic kidney disease (CKD) N18.31 Persistent atrial fibrillation I48.19 Chronic anticoagulation Z79.01 Time Spent (min) 60
[2022-12-23] MEDS: TERAZOSIN HCL 5 MG CAP PO SCH (19:56)
[2022-12-23] MEDS: SIMVASTATIN 10 MG TAB PO SCH (19:58)
[2022-12-23] MEDS: FINASTERIDE 5 MG TAB PO SCH (19:58)
[2022-12-24] MEDS: LEVOTHYROXINE SODIUM 75 MCG TABLET PO SCH (05:46)
[2022-12-24 06:20] LABS: Hematocrit (blood only) 30.4 % (42.0-52.0); Hemoglobin 9.8 g/dl (14.0-18.0); Mean Corpuscular Hemoglobin 32.9 pg (25.0-34.0); Mean Corpuscular Hgb Conc 32.2 g/dL (32.0-36.0); Mean Platelet Volume 10.6 fL (9.4-12.4); Platelet Count 97 K/uL (130-400); RDW Coefficient of Variation 13.1 % (11.5-14.5); RDW Standard Deviation 48.9 fL (36.4-46.3); Red Blood Count 2.98 M/uL (4.70-6.10); White Blood Count 4.57 K/ul (4.8-10.8)
[2022-12-24 06:32] LABS: BUN Creatinine Ratio 24.6 (10-20); Calcium 8.9 mg/dl (8.6-10.3); Creatinine Clr Calc Pharmacy 57.7 ml/min; Est GFR (Non-African American) 59.6 ml/min; Magnesium 2.2 mg/dl (1.7-2.4); Potassium 3.8 mmol/L (3.5-5.1)
[2022-12-24 06:41] LABS: INR 1.7 (0.9-1.1); Prothrombin Time 18.5 Seconds (9.0-12.0)
[2022-12-24] MEDS: DOCUSATE SODIUM/SENNA 50/8.6MG TAB PO SCH (08:05)
[2022-12-24] MEDS: carvediloL 25 MG TAB PO SCH (08:05)
[2022-12-24] MEDS: hydrALAZINE HCL 25 MG TAB PO SCH ×2 (08:05→13:13)
[2022-12-24] MEDS: ASPIRIN 81 MG ECTAB PO SCH (08:05)
[2022-12-24] MEDS: MAGNESIUM OXIDE 400 MG TAB PO SCH (08:06)
[2022-12-24] MEDS: ISOSORBIDE MONO EXTENDED REL 30 MG TABCR PO SCH (08:06)
[2022-12-24] MEDS: POTASSIUM CHLORIDE CRTAB 20 MEQ TABCR PO SCH (08:06)
--- NOTE | 2022-12-24 08:55 | Pulmonology Progress Note ---
Date of Service December 24, 2022 Assessment & Plan (1) Pleural effusion, left: (2) Acute on chronic respiratory failure with hypoxia: (3) Acute on chronic HFrEF (heart failure with reduced ejection fraction): (4) Stage 3a chronic kidney disease (CKD): (5) Persistent atrial fibrillation: (6) Chronic anticoagulation: Plan Impression: 82-year-old male that presented 12/20/2022 with acute on chronic respiratory failure. Patient was found to have increased oxygen require ments. Imaging examination revealed acute on chronic heart failure. Patient is typically on furosemide 40 mg p.o. daily. This was held and patient was started on Bumex. He continues on IV diuretics at this time. The pulmonary care service was consulted to evaluate for thoracentesis. Patient is not interested in pursuing invasive procedures at this time. Recommendations: 1. Bilateral pleural effusions left greater than right: Suspect related to the patient's diastolic heart failure. Continue management with diuretics. As the patient is not interested in thoracentesis and appears to be at his respiratory baseline, I do not think invasive procedures need to be pursued at this point in time. He can follow with his outpatient providers. Should these effusions prove refractory and the patient has symptoms and is interested in thoracentesis, could evaluate in the outpatient setting but again the patient's Coumadin will need to be held for at least 5 days prior to the procedure. This was discussed with the patient. Patient asking about being dismissed from the hospital. Advised him to follow- up with his primary admitting service. As he is not interested in pulmonary procedures at this time we will sign off. Feel free to contact us with additional questions or concerns Admission and Anticipated Discharge Date Admission Date: December 20, 2022 Subjective Patient seen and examined. EMR reviewed. The patient is sitting up eating breakfast. He is on his baseline oxygen requirement. He reports no increase in shortness of breath. He again reite rates that he is not interested in pursuing any invasive procedures at this time. He feels like he is at his pulmonary baseline and is asking when he can be dismissed from the hospital. Review of Systems Review of Systems: All systems reviewed & are unremarkable except as noted in Subjective Physical Exam Physical Exam: GENERAL : No acute distress EYES: No icterus, gaze conjugate NOSE: No evidence of epistaxis. Nasal cannula is in place. MOUTH: No lesions or candidiasis NECK: Supple. No appreciation of stridor LUNGS: Slightly decreased breath sounds at the left base. Appreciation of bibasilar crackles. No bronchospasm. No rhonchi. HEART: Regular, rate controlled ABDOMEN: Soft, NT, ND, BS Present EXTREMITIES: Bilateral LE edema, pedal pulses intact and equal bilaterally. Patient with green socks on. NEURO: A&OX3. No focal deficits. Patient able to get out of chair and transfer to bed without difficulty. No slurred speech. Patient does have bilateral hearing loss. Results & Data Results & Data Vital Signs (Past 12 Hours) Vital Signs Temp Pulse Pulse Resp BP Pulse Ox O2 Del Method 12/24/22 07:24 36.7 C 60 18 107/68 91 Nasal Cannula 12/24/22 03:42 36.6 C 76 20 116/76 93 Nasal Cannula 12/23/22 23:10 36.5 C 67 18 111/68 91 Nasal Cannula 12/23/22 22:57 60 12/23/22 21:41 Nasal Cannula O2 Flow Rate 12/24/22 07:24 2 12/24/22 03:42 3 12/23/22 23:10 3 12/23/22 22:57 12/23/22 21:41 3 Laboratory Results 12/24/22 05:42 12/24/22 05:42 Diagnostic Findings No new imaging PG Care Time/CCT Total # of Minutes Spent Total Time Spent with Patient: Total time spent is greater than 50% in coordination of care (as documented) at patient's floor/unit and/or counseling patient: Coding Level of Care Code 97637 SUB INP/OBS CARE 2/35MIN Diagnoses Pleural effusion, left J90 Acute on chronic respiratory failure with hypoxia J96.21 Acute on chronic HFrEF (heart failure with reduced ejection fraction) I50.23 Stage 3a chronic kidney disease (CKD) N18.31 Persistent atrial fibrillation I48.19 Chronic anticoagulation Z79.01
[2022-12-24] MEDS ORDERED: BUMETANIDE 2 MG in SYRINGE 0 ML IV SCH (09:00)
--- NOTE | 2022-12-24 13:55 | Discharge Summary ---
Date of Service December 24, 2022 Admission HPI Per Admitting Provider Mr. Gonzalez is an 82 year old male with pmhx hx (per chart) of AAA without rupture, CAD s/p OK s/p stent LAD, ICM, HFrEF s/p AICD, persistent AFib on warfarin, s/p DCCV, HTN, HLP, chronic hypoxic respiratory failure on 2LPM O2, pulmonary HTN, Hypothyroidisim, CKD IIIa, bladder stones, BPH with LUTS, internal hemorrhoids, chronic anemia, and thrombocytopenia. He presented d/t shortness of breath gradually worsening x months. He is found to have acute on chronic respiratory failure with hypoxia d/t acute on chronic HFrEF c/b pleural effusions. Initially required 4 LPM O2. Mr. Gonzalez reports medication compliance. He denies dietary indiscretions, changes in dietary habits, or increased fluid intake. Over the past several months he notes gradually worsening sob beyond baseline. Lower extremity edema is fairly constant. He try to take some extra lasix today without change in breathing or edema. This is associated with feeling weak and tired. He has no additional associated symptoms. He denies recent or current dizziness, lightheadedness, f/c/n/v, diaphoresis, flushing, CP, palpitations, cough, congestion, sore throat, abdominal pain, and diarrhea. He just has a follow up for AAA yesterday and was told it is slightly bigger than before. There were no concerns regarding fluid balance. ED Course b/w notable for h/h 10.4/33.5, plt 115, CO2 40, BUN 29, remaining cmp, cbc unremarkable. Trop 22.1, INR 2.2 CXR notable for b/l pleural effusions L > R with compressive atelectasis VS notable for T 36.3 C, HDS. 92% on 4 LPM In the ED he was given IV Lasix with improvement. He was weaned back down to 2 LPM O2. Shortness of breath improved somewhat, but still significant. Placed on hospitalist service for ongoing diuresis. Principal Diagnosis Acute on chronic systolic CHF Acute on chronic hypoxic respiratory failure Bilateral (left >right) pleural effusion Discharge Exam Patient was seen at 12pm. He is requesting to be discharged. He feels back to his baseline. His is present at bedside and will be taking him home Constitutional Sitting in chair, no acute distress Respiratory On 2L NC. Diminished at bases. No accessory muscle use Cardiovascular Regular rate and rhythm. No murmurs/rubs Gastrointestinal (Abdomen) soft, non tender Musculoskeletal 1+ edema bilaterally Discharge Data Allergies Allergy/AdvReac Type Severity Reaction Status Date / Time spironolactone Allergy Intermediate LIP Verified 02/26/17 08:27 SWELLING Consultations 12/20/22 18:39 Consult Cardiology Routine 12/23/22 13:10 Consult Pulmonology Routine Ordered Studies 12/23/22 13:47 sono, invasive monitoring [US point of care ultrasound] Routine Hospital Course (1) Acute on chronic respiratory failure with hypoxia: Due to acute on chronic HFrEF Required up to 4L NC on presentation and felt short of breath. At the time of discharge, he was weaned back to 2L NC which is his baseline. He felt back to baseline and requested to be discharged home CXR shows bilateral pleural effusions, left more than right. Persistent effusions despite parenteral diuresis so Pulmonology was recommended. Ultrasound of left lung does show discrete fluid collection that is amenable to thoracentesis. Patient himself does not want thoracentesis and is also on coumadin. He was seen by pulmonology while here and can follow up with them in the office for OP thoracentesis if he changes his mind. (2) Acute on chronic HFrEF (heart failure with reduced ejection fraction): At home, he was taking lasix 80mg daily. Here, he was placed initially on IV lasix but reported having myoclonic jerks while on IV lasix (he reports having a similar experience to IV lasix in the past). Jerks were so bad that he couldn't hold a cup of coffee. He was then switched to IV bumex which he tolerated well. With parenteral diuresis, he was only net (-) 1L but he felt his breathing is back to normal and requested to be discharged home. He still had 1+ edema bilateral lower extremities to below the knees so it is still hypervolemic and would benefit from continued parenteral diuresis. However, he and his are very anxious for him to return home. His lasix 80mg was discontinued and instead he will be on torsemide 40mg daily. He was given CHF instructions. He has a follow up appointment with his primary Dipper Operator already in place. (3) Persistent atrial fibrillation: Continue Coreg and Coumadin Pacemaker was interrogated and adjusted here Coumadin was held briefly due to possibility of thoracentesis but can be resumed at home doses at discharge INR was 1.7 on day of discharge but had been therapeutic on prior days when he was getting his coumadin. (4) CAD (coronary artery disease): (5) Stage 3a chronic kidney disease (CKD): (6) Hypothyroidism: (7) BPH (benign prostatic hypertrophy): (8) HTN (hypertension): Home: carvedilol 25 mg BID, Hydralazine 25 mg TID, Isosorbide mononitrate 30 mg daily, Terazosin 5 mg hs Had an episode of hypotension (92/47) while being diuresed so Hydralazine was reduced to 12.5mg TID. BP has remained stable otherwise. Blood pressure runs 100-110/60s. (9) HLD (hyperlipidemia): (10) Pacemaker: Pacemaker was interrogated here and rate adjusted per Cardiology Plan Disposition- from home. Evaluate by PT. Patient feels he is at his baseline and wants to return home with his . Total Time Total Time Spent Total Time Spent (In Minutes): 40 Discharge Plan Discharge Items Patient Disposition: Home - Self-Care Reason For Visit: SOB Discharge Diagnosis: Acute on chronic systolic CHF Acute on chronic hypoxic respiratory failure Bilateral (left >right) pleural effusion Condition on Discharge: Fair Activity: Resume your previous activity Non-emergency contact: Primary Care Provider, Dipper Operator and Employment Consultant Call non-emergency contact if: you have any medication questions Follow-up/Referrals: Kris Cardozo MD [Physician] - (For the fluid in your lungs. In the event you want drainage) Octavio Smith DO [Dipper Operator] - (Please keep your existing appointment. ) Kamari Jordan MD [Primary Care Provider] - Diet: Heart Healthy Fluids: 1500ml (6 cups) Addtl Attending Provider Instructions: You were admitted for congestive heart failure with shortness of breath and increased leg swelling You received IV diuretics here Your breathing and leg swelling improved. At discharge, you will be going home on TORSEMIDE 40mg daily. Your LASIX will be discontinued For your heart failure, you should: 1) Be on a low salt diet 2) Weigh yourself every day. Use the same scale. Weigh at the same time every day (every morning). Call Dr Smith's office if your weight goes up by more than 5 lb for further instructions on your Torsemide 3) Stick to a 1.5L fluid restriction For your pleural effusion (fluid in your lung) 1) If you change your mind about getting a thoracentesis (having fluid removed with a needle), make an appointment to see the lung doctor. You were seen by Dr Cardozo here If your breathing worsens, please return to the ER Pending Studies at Discharge: No Stand-Alone Forms: My [facility], Smoking Cessation Medications and DC Order Prescriptions: New hydralazine 25 mg Tablet 12.5 mg PO TID 30 Days Qty: 45 0RF torsemide 20 mg tablet 40 mg PO DAILY Qty: 60 0RF Continued terazosin 5 mg Capsule 5 mg PO HS Qty: 0 carvedilol 25 mg Tablet 25 mg PO BID Qty: 0 Rx Instructions: must administer with a meal/food simvastatin 10 mg Tablet 10 mg PO PM Qty: 0 finasteride 5 mg Tablet 5 mg PO PM Qty: 0 isosorbide mononitrate 30 mg Tablet Extended Release 24 Hr 30 mg PO QAM 30 Days Qty: 30 POTASSIUM CHLORIDE MICROENCAPS (POTASSIUM CHLORIDE ER) 10 MEQ tablet 1 tab PO 2XWK 30 Days Qty: 0 Patient Comments: TAKES DIFFERENT TIMES aspirin 81 mg Tablet,Delayed Release (Dr/Ec) 81 mg PO QAM Qty: 0 Nitroglycerin (Nitrostat) 0.4 MG tablet 1 tab Sublingual UD Qty: 100 levothyroxine 75 mcg Tablet 75 mcg PO DAILY 30 Days Qty: 30 warfarin 5 mg tablet 5 mg PO DIRECTED Rx Instructions: Per - Tuesdays, and Friday he takes 1 and 1/2 tabs. Rest of the days he takes one tablet. Discontinued hydralazine 25 mg Tablet 25 mg PO TID Qty: 0 furosemide 40 mg Tablet 40 mg PO QAM Qty: 0 Discharge Orders: Discharge Order- CHF (Routine); Ordered 12/24/22 Ordered By: Cooper Brannon/Other Patient Handouts: Heart Failure Dc Admission Data Admit Date/Time: 12/20/22 18:39 Attending Provider: Cooper Merchant Admit Provider: Lilian Fernandez Primary Care Provider: Kamari Jordan Other Providers: Pablito Aguayo ; Lilian Fernandez ; Kris Cardozo Other Interventions: Discharge Summary Assessment (RN) Last Done: 12/24/22 13:16
--- NOTE | 2022-12-24 14:10 | Cardiology Progress Note ---
Date of Service December 24, 2022 Assessment & Plan (1) Acute on chronic respiratory failure with hypoxia: (2) Acute on chronic HFrEF (heart failure with reduced ejection fraction): (3) Stage 3a chronic kidney disease (CKD): (4) Persistent atrial fibrillation: (5) Ischemic cardiomyopathy: (6) AICD (automatic cardioverter/defibrillator) present: (7) Pleural effusion, left: Plan 82-year-old male with decompensated systolic heart failure, persistent left pleural effusion in the setting of nonischemic cardiomyopathy. Slowly responded to IV diuretic Impression/plan: 82-year-old male hospitalized with 1. Acute decompensated systolic heart failure: Patient improved symptomatically that was still with moderate volume overload. Patient desires discharge today Continue outpatient discharge with oral torsemide 40 mg/day in place of furosemide Continue prehospital medications with reduction in hydralazine as noted Resume anticoagulation with warfarin Discussed CHF instructions fluid restriction Daily weights and careful monitoring of increased edema. Follow-up as scheduled with Dr. Smith 01/20/2023 2. Left pleural effusion: Some chronicity to its presence and patient declining thoracentesis 3. Ischemic cardiomyopathy with severe LV dysfunction 4. Indwelling pacer defibrillator: Device reprogrammed to heart rate of 70. Battery life adequate no indications for exchange. Admission and Anticipated Discharge Date Admission Date: December 20, 2022 Subjective Patient seen and examined, chart, medications, telemetry reviewed Patient feels improved and is insisting on going home. Mild volume overload still present. Pacemaker interrogated today with device functioning normally with 11 months battery life. Device reprogrammed to heart rate of 70 No fevers chills or productive cough Review of Systems Review of Systems: All systems reviewed & are unremarkable except as noted in Subjective Physical Exam Constitutional: no acute distress and not obese Eyes: PERRL, conjunctivae normal, anicteric sclerae ENMT: external ear and nose normal, oropharynx normal Neck: trachea midline, no thyromegaly + thick neck Respiratory: Auscultation: + diminished lung sounds (Left base) Cardiovascular: Rate/Rhythm: regular rhythm (Ventricular paced) Vessels: no JVD Extremities: + edema Gastrointestinal (Abdomen): normal bowel sounds, soft, nontender, no hepatosplenomegaly Results & Data Vital Signs (Past 12 Hours) Vital Signs Temp Pulse Pulse Pulse Resp BP Pulse Ox 12/24/22 13:16 36.7 C 88 70 18 110/63 92 12/24/22 11:08 36.7 C 70 18 110/63 92 12/24/22 09:52 12/24/22 08:00 69 12/24/22 07:24 36.7 C 60 18 107/68 91 12/24/22 03:42 36.6 C 76 20 116/76 93 O2 Del Method O2 Flow Rate 12/24/22 13:16 12/24/22 11:08 Nasal Cannula 2 12/24/22 09:52 Nasal Cannula 2 12/24/22 08:00 12/24/22 07:24 Nasal Cannula 2 12/24/22 03:42 Nasal Cannula 3 Laboratory Results Laboratory Results - last 24 hr 12/24/22 12/24/22 12/24/22 05:42 05:42 05:42 WBC 4.57 L RBC 2.98 L Hgb 9.8 L Hct 30.4 L MCV 102.0 H MCH 32.9 MCHC 32.2 RDW Std Deviation 48.9 H RDW Coeff of [place] 13.1 Plt Count 97 L MPV 10.6 PT 18.5 H INR 1.7 H Sodium 140 Potassium 3.8 Chloride 97 L Carbon Dioxide 40 H Anion Gap 3 BUN 28 H Creatinine 1.14 Est Cr Clr Drug Dosing 57.7 Est GFR ( Amer) 69.0 Est GFR (Non-Af Amer) 59.6 BUN/Creatinine Ratio 24.6 H Glucose 100 H Calcium 8.9 Magnesium 2.2
== END 2022-12-24 14:32 | disposition home or self-care (01) | DRG 291 ==
LOC: ED 14:59 → SUATTDRO 18:39 → 2N 18:39